=== PATIENT | female | born 1930 | race Caucasian/White ===

== ENCOUNTER 2016-05-14 16:32 | Inpatient (IN) | payer MEDICARE ==
[~2016-05-14] VITALS: Ht 162.6 cm; Wt 69.3 kg
[~2016-05-14 16:32] MED LIST: AMLO10 PO; ATOR40TA49 PO; BISA10R PR; CALC500 PO; CHOL1TAB6 PO; CLON.2 PO; COLA100C PO; COUM2.5T PO; COUM5TAB PO; CYAN1000P IM; IRON325T2 PO; LACT20SO4 PO; LIDO2GEL12 TOP; MAGN30S PO; MAPA325T6 PO; METO50CR PO; PREG75 PO; PROT40TA PO
[2016-05-14 16:43] VITALS: BP 112/59; PULSE 63; RESP 14; TEMP 98.6; O2SAT 96
[2016-05-14 17:24] LABS: AUTOMATED NEUTROPHIL # 3.6 TH/MM3 (1.8-7.7); BASOPHIL % 0.9 % (0.0-2.0); EOSINOPHIL % 0.9 % (0.0-4.0); HEMATOCRIT 27.9 % (35.0-46.0); HEMO FLAGS DIFF FINAL; LYMPH % 20.6 % (9.0-44.0); MEAN CELL VOLUME 84.4 FL (80.0-100.0); MEAN CORPUSCULAR HGB CONC 35.6 % (32.0-36.0); MONO % 6.2 % (0.0-8.0); NEUT % 71.4 % (16.0-70.0); PLATELET COUNT 217 TH/MM3 (150-450); RED BLOOD COUNT 3.31 MIL/MM3 (4.00-5.30); RED CELL DISTRIBUTION WIDTH 17.8 % (11.6-17.2); WHITE BLOOD COUNT 5.1 TH/MM3 (4.0-11.0)
[2016-05-14 17:34] LABS: PROTHROMBIN TIME - PATIENT 11.4 SEC (9.8-11.6)
[2016-05-14 17:55] LABS: CALCIUM-PROTEIN CORRECTED 7.8 MG/DL (8.5-10.1); TOTAL BILIRUBIN ADULT 1.1 MG/DL (0.2-1.0)
--- NOTE | 2016-05-14 18:04 | RADRPT ---
EXAM DATE/TIME: 05/14/2016 17:10 [facility] COMPARISON: CHEST SINGLE AP, January 24, 2016, 16:10. INDICATIONS : Cough for 2 days MEDICAL HISTORY : Carcinoma, breast. SURGICAL HISTORY : Mastectomy, right. ENCOUNTER: Initial ACUITY: 2 days PAIN SCORE: 0/10 LOCATION: Bilateral chest FINDINGS: The lungs are clear without infiltrate, nodule, or mass. There is no appreciable pleural effusion fo r technique. Heart and mediastinum are unremarkable. Bilateral proximal humeral fractures are again seen. There are atherosclerotic calcifications of the aorta due to chronic atherosclerotic disease. CONCLUSION: No acute cardiopulmonary disease. Rom Engle MD on May 14, 2016 at 18:01 Board Certified Radiologist. This report was verified electronically.
[2016-05-14 18:17] LABS: POTASSIUM 1.7 MEQ/L (3.5-5.1)
[2016-05-14 18:30] VITALS: BP 150/60; PULSE 61; RESP 17; O2SAT 94
[2016-05-14 18:35] LABS: BLOOD, URINE NEG (NEG); GLUCOSE,URINE NEG (NEG); GRANULAR CAST, URINE 5 /lpf; HYALINE CAST, URINE 12 /lpf (RARE); KETONE, URINE TRACE mg/dL (NEG); MUCUS URINE FEW /lpf (OCC); NITRITE,URINE NEG (NEG); SQUAMOUS EPITHELIAL CELL URINE <1 /hpf (0-5); TRANSITIONAL EPI CELLS, URINE <1 /hpf; URINE COLOR DARK-YELLOW (YELLW/STRAW); WHITE BLOOD CELL CAST, URINE 16 /lpf
--- NOTE | 2016-05-14 18:36 | RADRPT ---
EXAM DATE/TIME: 05/14/2016 18:13 [facility] COMPARISON: No previous studies available for comparison. INDICATIONS : Left foot bruising for 2 days with no known trauma MEDICAL HISTORY : None. SURGICAL HISTORY : None. ENCOUNTER: Initial ACUITY: 2 days PAIN SCORE: 0/10 LOCATION: Left entire foot FINDINGS: No definite fractures, or dislocations are identified. No definite lytic or sclerotic lesion is seen . Slight osteopenia is seen. Calcaneal spurs are present at the attachment site of the plantar apone urosis and Achilles tendon. There are degenerative changes within multiple joints mainly the interpha langeal joints and the first metatarsophalangeal joint. CONCLUSION: Chronic changes and no evidence for acute fracture. Rom Engle MD on May 14, 2016 at 18:33 Board Certified Radiologist. This report was verified electronically.
[2016-05-14 18:38] LABS: COMMENT (UR) CATH-CULTURE IND; CULTURE IF INDICATED CATH CULTURE IND
[2016-05-14] MEDS ORDERED: LYRI50CA PO (18:39)
[2016-05-14] MEDS ORDERED: CLON0.2T PO (18:39)
[2016-05-14] MEDS ORDERED: ATOR40TA16 PO (18:39)
[2016-05-14] MEDS ORDERED: ASPI325T PO (18:39)
[2016-05-14] MEDS ORDERED: MAGN100T2 PO (18:39)
[2016-05-14] MEDS ORDERED: PROT40TA PO (18:39)
[2016-05-14] MEDS ORDERED: VITA10003 PO (18:39)
[2016-05-14] MEDS ORDERED: CALC500C6 CHEW (18:39)
[2016-05-14] MEDS ORDERED: DOCU100C PO (18:39)
[2016-05-14] MEDS ORDERED: ACET1CAP18 PO (18:39)
[2016-05-14] MEDS ORDERED: AMLO10TA2 PO (18:39)
[2016-05-14] MEDS ORDERED: MILKSUS PO (18:39)
[2016-05-14] MEDS ORDERED: METO50TA PO (18:39)
[2016-05-14] MEDS ORDERED: TRAM50TA PO (18:39)
[2016-05-14] MEDS ORDERED: BISA10SU3 RECTAL (18:39)
[2016-05-14] MEDS ORDERED: POTASSIUM CL 40 MEQ/30 ML LIQ UDC PO ONE (18:45)
[2016-05-14] MEDS ORDERED: cefTRIAXone INJ 1,000 MG in SODIUM CHLORIDE 0.9% INJ 100 ML IV ONE (19:00)
--- NOTE | 2016-05-14 19:13 | PD ---
HPI Chief Complaint: Respiratory Symptoms Time Seen by Provider: 16:51 Travel History International Travel<30 days: No Contact w/Intl Traveler<30days: No Traveled to known affect area: No History of Present Illness HPI This is an 85-year-old female who presents to the emergency department having been removed from her assisted 2 days ago by her daughter who was concerned that she wasn't getting good care. When she arrived at home her daughter thought she had a fever. She thought she felt warm and she was sweating. She did not check her temperature. It occurred and a half to coordinate transfer but she brought her to the emergency department. She also has noticed that the patient has had a lot of purple discoloration of her left foot ever since she had a toenail removed by the dental secretary in the assisted. Seems painful. She is also concerned about some skin breakdown in her buttock area. PFSH Past Medical History Hx Anticoagulant Therapy: Yes (ASA) Arthritis: Yes Asthma: No Autoimmune Disease: No Anxiety: No Depression: No Heart Rhythm Problems: No Cancer: Yes (Colon, Right breast) Cardiovascular Problems: No High Cholesterol: Yes Chemotherapy: No Chest Pain: No Congestive Heart Failure: No COPD: No Cerebrovascular Accident: Yes Diabetes: No Diminished Hearing: No Endocrine: No Gastrointestinal Disorders: Yes (Colon cancer) GERD: Yes Genitourinary: No Hepatitis: No Hiatal Hernia: Yes Hypertension: Yes Immune Disorder: No Kidney Stones: No Medical other: Yes (GERD) Musculoskeletal: Yes Neurologic: Yes (Stroke 7.21.16, NEUROPATHY) Psychiatric: No Reproductive: No Respiratory: No Migraines: No Radiation Therapy: No Renal Failure: No Seizures: No Sickle Cell Disease: No Sleep Apnea: No Thyroid Disease: No Ulcer: No Tetanus Vaccination: < 5 Years Influenza Vaccination: No ?: Not Menopausal: Yes : 6 Para: 5 Miscarriage: 1 Past Surgical History Abdominal Surgery: Yes (BOWEL RESECTION) AICD: No Appendectomy: Yes Arteriovenous Shunt: No Body Medical Devices: Left wrist Cardiac Surgery: No Section: No Cholecystectomy: Yes Ear Surgery: No Endocrine Surgery: No Eye Surgery: Yes (BILATERAL CATARACT REMOVAL ) Genitourinary Surgery: No Gynecologic Surgery: No Insulin Pump: No Joint Replacement: No Oral Surgery: No Pacemaker: No Thoracic Surgery: Yes (RIGHT MASTECTOMY ) Other Surgery: Yes (Gallbladder, Right Masectomy, Left wrist) Social History Alcohol Use: No Tobacco Use: No Substance Use: No Allergies-Medications (Allergen,Severity, Reaction): Coded Allergies: Heparin (Verified Adverse Reaction, Severe, 05/14/16) CAUSED THROMBOSIS Reported Meds & Prescriptions Reported Meds & Active Scripts Active Reported Tramadol (Tramadol HCl) 50 Mg Tab 50 Mg PO Q6H PRN Protonix (Pantoprazole Sodium) 40 Mg Tab 40 Mg PO DAILY Lyrica (Pregabalin) 50 Mg Cap 50 Mg PO BID PRN Milk of Magnesia Liq (Magnesium Hydroxide) 400 Mg/5 Ml Susp 30 Ml PO DAILY PRN Metoprolol Tartrate 50 Mg Tab 50 Mg PO DAILY Magnesium Citrate 100 Mg Tab 100 Mg PO DAILY PRN Docusate Sodium 100 Mg Cap 100 Mg PO BID Clonidine (Clonidine HCl) 0.2 Mg Tab 0.2 Mg PO Q6HR PRN Vitamin D-3 (Cholecalciferol) 1,000 Unit Tab 1,000 Units PO DAILY Calcium Carbonate 500 Mg Chew 500 Mg CHEW BID 500 mg calcium carbonate (200 mg elemental calcium) Bisacodyl Supp (Bisacodyl) 10 Mg Supp 10 Mg RECTAL DAILY PRN Atorvastatin (Atorvastatin Calcium) 40 Mg Tab 40 Mg PO HS Aspirin 325 Mg Tab 325 Mg PO DAILY Amlodipine (Amlodipine Besylate) 10 Mg Tab 10 Mg PO DAILY Tylenol (Acetaminophen) 325 Mg Cap 325 Mg PO Q8HR PRN Review of Systems ROS Limitations: Poor Historian Physical Exam Narrative GENERAL: Frail elderly female in no acute distress SKIN: Purpura over the left foot adjacent to the left great toe and on the lateral aspect of the left foot with no warmth HEAD: Atraumatic. Normocephalic. EYES: Pupils equal and round. No injection or drainage. ENT: Dry mucous membranes NECK: Trachea midline. CARDIOVASCULAR: Regular rate and rhythm. No murmur appreciated. RESPIRATORY: Clear to auscultation. Breath sounds equal bilaterally. GASTROINTESTINAL: Abdomen soft, non-tender, nondistended. MUSCULOSKELETAL: No obvious deformities. NEUROLOGICAL: Confused, oriented to person and place. No obvious cranial nerve deficits. Left-sided hemiparesis PSYCHIATRIC: Poor insight and judgment Data Data Last Documented VS Vital Signs Date Time Temp Pulse Resp B/P Pulse Ox O2 Delivery O2 Flow Rate FiO2 05/14/16 19:10 86 Nasal Cannula 3 05/14/16 18:30 61 17 150/60 05/14/16 16:43 98.6 Orders Complete Blood Count With Diff (05/14/16 16:51) Comprehensive Metabolic Panel (05/14/16 16:51) Lactic Acid Sepsis Protocol (05/14/16 16:51) Urinalysis - C+S If Indicated (05/14/16 16:51) Influenzae A/B Antigen (05/14/16 16:51) Blood Culture (05/14/16 16:51) Chest, Single Ap (05/14/16 16:51) Blood Glucose (05/14/16 16:51) Ecg Monitoring (05/14/16 16:51) Iv Access Insert/Monitor (05/14/16 16:51) Oximetry (05/14/16 16:51) Oxygen Administration (05/14/16 16:51) Prothrombin Time / Inr (Pt) (05/14/16 16:53) Act Partial Throm Time (Ptt) (05/14/16 16:53) Foot, Complete ([id number]) (05/14/16 ) Electrocardiogram (05/14/16 ) Urine Culture (05/14/16 17:55) Potassium Chlor 20 Meq Premix (Kcl 20 Me (05/14/16 18:45) Potassium Cl 40 Meq/30 Ml Liq (Kcl 40 Me (05/14/16 18:45) Potassium, Serum (K) (05/14/16 18:45) Ceftriaxone Inj (Rocephin Inj) (05/14/16 19:00) Cath For Specimen (05/14/16 19:13) Labs Laboratory Tests Test 05/14/16 05/14/16 05/14/16 17:03 17:10 17:55 White Blood Count 5.1 TH/MM3 Red Blood Count 3.31 MIL/MM3 Hemoglobin 9.9 GM/DL Hematocrit 27.9 % Mean Corpuscular Volume 84.4 FL Mean Corpuscular Hemoglobin 30.0 PG Mean Corpuscular Hemoglobin 35.6 % Concent Red Cell Distribution Width 17.8 % Platelet Count 217 TH/MM3 Mean Platelet Volume 8.5 FL Neutrophils (%) (Auto) 71.4 % Lymphocytes (%) (Auto) 20.6 % Monocytes (%) (Auto) 6.2 % Eosinophils (%) (Auto) 0.9 % Basophils (%) (Auto) 0.9 % Neutrophils # (Auto) 3.6 TH/MM3 Lymphocytes # (Auto) 1.0 TH/MM3 Monocytes # (Auto) 0.3 TH/MM3 Eosinophils # (Auto) 0.0 TH/MM3 Basophils # (Auto) 0.0 TH/MM3 CBC Comment DIFF FINAL Differential Comment Prothrombin Time 11.4 SEC Prothromb Time International 1.0 RATIO Ratio Activated Partial 32.0 SEC Thromboplast Time Sodium Level 140 MEQ/L Potassium Level 1.7 MEQ/L Chloride Level 92 MEQ/L Carbon Dioxide Level 40.0 MEQ/L Anion Gap 8 MEQ/L Blood Urea Nitrogen 9 MG/DL Creatinine 0.60 MG/DL Estimat Glomerular Filtration 95 ML/MIN Rate Random Glucose 89 MG/DL Calcium Level 7.4 MG/DL Protein Corrected Calcium 7.8 MG/DL Total Bilirubin 1.1 MG/DL Aspartate Amino Transf 32 U/L (AST/SGOT) Alanine Aminotransferase 18 U/L (ALT/SGPT) Alkaline Phosphatase 109 U/L Total Protein 6.3 GM/DL Albumin 1.7 GM/DL Lactic Acid Level 0.9 mmol/L Urine Color DARK-YELLOW Urine Turbidity HAZY Urine pH 6.0 Urine Specific [place] 1.017 Urine Protein 30 mg/dL Urine Glucose (UA) NEG mg/dL Urine Ketones TRACE mg/dL Urine Occult Blood NEG Urine Nitrite NEG Urine Bilirubin SMALL Urine Urobilinogen 4.0 MG/DL Urine Leukocyte Esterase NEG Urine RBC 1 /hpf Urine WBC 18 /hpf Urine Squamous Epithelial <1 /hpf Cells Urine Transitional Epithelial <1 /hpf Cells Urine Amorphous Sediment RARE Urine Hyaline Casts 12 /lpf Urine Granular Casts 5 /lpf Urine White Blood Cell Casts 16 /lpf Urine Mucus FEW /lpf Microscopic Urinalysis Comment CATH-CULTURE IND MDM Medical Decision Making Medical Screen Exam Complete: Yes Emergency Medical Condition: Yes Interpretation(s) EKG: First-degree heart block, Q waves in the inferior leads Leukocytosis Anemia Potassium 1.7 Lactic acid 0.9 Bicarbonate is 40 Urinalysis: White blood cells 18 Differential Diagnosis Dehydration, arrhythmia, urinary tract infection, pneumonia Narrative Course This is an 85-year-old female who presents brought in by her daughter for concern for infection. The patient was placed on a monitor and an IV was established. Electrolytes were obtained which were notable for a potassium of 1.7. Bicarbonate is 40. On further questioning daughter does acknowledge that the patient has had some diarrhea recently. Patient does have a slightly prolonged QT interval. Urinalysis demonstrates 18 white blood cells. She was given a gram of ceftriaxone. She was given IV potassium and oral potassium supplementation. Patient will be admitted for electrolyte repletion. I think the patient can seek podiatry as an inpatient regarding the wounds and discoloration on her foot. Diagnosis Primary Impression: Hypokalemia Admitting Information Admitting Physician Requests: Admit Danna Brian MD May 14, 2016 19:13
--- NOTE | 2016-05-14 19:17 | HHI.HP ---
[facility] Service Family Medicine Primary Care Physician Lucinda Randhawa MD Admission Diagnosis Diagnoses: International Travel<30 Days: No Contact w/Intl Traveler<30days: No Known Affected Area: No History of Present Illness This is a 85 year olf female here with her daughter. The daughter provides much of the history. The daughter has not been pleased with the care her mother has received at her nursing facility. She complains that her mom would sit for hours at a time in wet diapers and that they stopped physical therapy because her Medicare would not cover it anymore. Additionally, 3 weeks ago she complains that a nurse accidentally partially removed the left great toenail when lifting the patient out of bed. A marine engineering consultant was consulted secondary to the toe "turning black." And he proceeded to remove the toenail. Reportedly, her marine engineering consultant at that facility wanted an x-ray and culture of the foot. Last night, her daughter reports the patient had a fever (subjectively) because she felt hot and was sweating. Additionally yesterday her cough started. Nonproductive. She occasionally gets into coughing fits. It is this cough and subjective fever which brought the patient to the emergency room. She is also concerned that the skin on her bottom is breaking down. Review of Systems Constitutional: COMPLAINS OF: Fever (subjective), DENIES: Chills Eyes: DENIES: Blurred vision, Diplopia Ears, nose, mouth, throat: DENIES: Tinnitus, Hearing loss Respiratory: COMPLAINS OF: Cough, Shortness of breath, DENIES: Sputum production Cardiovascular: DENIES: Chest pain, Syncope, Dyspnea on Exertion Gastrointestinal: COMPLAINS OF: Diarrhea, DENIES: Abdominal pain, Black stools , Bloody stools, Constipation Integumentary: COMPLAINS OF: Rash, DENIES: Pruritus Neurologic: DENIES: Headache Psychiatric: DENIES: Anxiety, Confusion Past Family Social History Past Medical History Hypertension History of breast cancer, status post chemotherapy and right mastectomy Distant history of colon cancer requiring partial large bowel resection Hyperlipidemia GERD History of pancreatitis secondary to gallstone Osteoarthritis Osteoporosis 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 Hinds Chief Meter Reader: can't remember the name. Past Surgical History Cholecystectomy Appendectomy Colon resection due to colon cancer Bilateral cataract surgery Right mastectomy for breast cancer Recent surgery for wrist fracture Reported Medications Reported Meds & Active Scripts Active Reported Tramadol (Tramadol HCl) 50 Mg Tab 50 Mg PO Q6H PRN Protonix (Pantoprazole Sodium) 40 Mg Tab 40 Mg PO DAILY Lyrica (Pregabalin) 50 Mg Cap 50 Mg PO BID PRN Milk of Magnesia Liq (Magnesium Hydroxide) 400 Mg/5 Ml Susp 30 Ml PO DAILY PRN Metoprolol Tartrate 50 Mg Tab 50 Mg PO DAILY Magnesium Citrate 100 Mg Tab 100 Mg PO DAILY PRN Docusate Sodium 100 Mg Cap 100 Mg PO BID Clonidine (Clonidine HCl) 0.2 Mg Tab 0.2 Mg PO Q6HR PRN Vitamin D-3 (Cholecalciferol) 1,000 Unit Tab 1,000 Units PO DAILY Calcium Carbonate 500 Mg Chew 500 Mg CHEW BID 500 mg calcium carbonate (200 mg elemental calcium) Bisacodyl Supp (Bisacodyl) 10 Mg Supp 10 Mg RECTAL DAILY PRN Atorvastatin (Atorvastatin Calcium) 40 Mg Tab 40 Mg PO HS Aspirin 325 Mg Tab 325 Mg PO DAILY Amlodipine (Amlodipine Besylate) 10 Mg Tab 10 Mg PO DAILY Tylenol (Acetaminophen) 325 Mg Cap 325 Mg PO Q8HR PRN Allergies: Coded Allergies: Heparin (Verified Adverse Reaction, Severe, 05/14/16) CAUSED THROMBOSIS Active Ordered Medications Active Medications Ceftriaxone Sodium/Sodium Chloride (Rocephin Inj/NS Inj) 100 ml @ 200 mls/hr ONCE ONCE IV Last administered on 05/14/16at 19:05; Admin Dose 200 MLS/HR; Start 05/14/16 at 19:00; Stop 05/14/16 at 19:29 Potassium Chloride 40 meq 40 meq ONCE ONCE PO; Start 05/14/16 at 18:45; Stop 05/14/16 at 18:46; Status DC Potassium Chloride (KCl 20 Meq Premix Inj) 100 ml @ 50 mls/hr Q2H IV; Start at 18:45; Stop 05/14/16 at 22:44 Family History Review of the EMR Social History 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 Lives with her and her daughter. Denies alcohol or smoking. Physical Exam Vital Signs Vital Signs Date Time Temp Pulse Resp B/P Pulse Ox O2 Delivery O2 Flow Rate FiO2 05/14/16 16:51 71 14 96 Room Air 05/14/16 16:43 98.6 63 14 112/59 96 Physical Exam GENERAL: This is a pleasant elderly female, in NAD. SKIN: Cool and dry. Left foot with ecchymotic 4X4 cm lesion on the outside of the foot and left great toe with procedural changes status post resection of nail one week ago. STAGE 1 decubitus ulcer on the sacrum. No skin breakdown. HEAD: Atraumatic. Normocephalic. No temporal or scalp tenderness. EYES: Pupils equal round and reactive. Extraocular motions intact. No scleral icterus. No injection or drainage. ENT: Nose without bleeding, purulent drainage or septal hematoma. Throat without erythema, tonsillar hypertrophy or exudate. Uvula midline. Airway patent. NECK: Trachea midline. No JVD or lymphadenopathy. Supple, nontender, no meningeal signs. CARDIOVASCULAR: Regular rate and rhythm without murmurs, gallops, or rubs. RESPIRATORY: Clear to auscultation bilaterally. GASTROINTESTINAL: Abdomen soft, non-tender, nondistended. No hepato-splenomegaly , or palpable masses. No guarding. MUSCULOSKELETAL: Extremities without clubbing, cyanosis, or edema. No joint tenderness, effusion, or edema noted. No calf tenderness. Negative Homans sign bilaterally. NEUROLOGICAL: Awake and alert. Cranial nerves II through XII intact. Motor and sensory grossly within normal limits. Five out of 5 muscle strength in all muscle groups. Normal speech. Laboratory Laboratory Tests Test 05/14/16 05/14/16 05/14/16 17:03 17:10 17:55 White Blood Count 5.1 Red Blood Count 3.31 Hemoglobin 9.9 Hematocrit 27.9 Mean Corpuscular Volume 84.4 Mean Corpuscular Hemoglobin 30.0 Mean Corpuscular Hemoglobin 35.6 Concent Red Cell Distribution Width 17.8 Platelet Count 217 Mean Platelet Volume 8.5 Neutrophils (%) (Auto) 71.4 Lymphocytes (%) (Auto) 20.6 Monocytes (%) (Auto) 6.2 Eosinophils (%) (Auto) 0.9 Basophils (%) (Auto) 0.9 Neutrophils # (Auto) 3.6 Lymphocytes # (Auto) 1.0 Monocytes # (Auto) 0.3 Eosinophils # (Auto) 0.0 Basophils # (Auto) 0.0 CBC Comment DIFF FINAL Differential Comment Prothrombin Time 11.4 Prothromb Time International 1.0 Ratio Activated Partial 32.0 Thromboplast Time Sodium Level 140 Potassium Level 1.7 Chloride Level 92 Carbon Dioxide Level 40.0 Anion Gap 8 Blood Urea Nitrogen 9 Creatinine 0.60 Estimat Glomerular Filtration 95 Rate Random Glucose 89 Calcium Level 7.4 Protein Corrected Calcium 7.8 Total Bilirubin 1.1 Aspartate Amino Transf 32 (AST/SGOT) Alanine Aminotransferase 18 (ALT/SGPT) Alkaline Phosphatase 109 Total Protein 6.3 Albumin 1.7 Lactic Acid Level 0.9 Urine Color DARK-YELLOW Urine Turbidity HAZY Urine pH 6.0 Urine Specific [place] 1.017 Urine Protein 30 Urine Glucose (UA) NEG Urine Ketones TRACE Urine Occult Blood NEG Urine Nitrite NEG Urine Bilirubin SMALL Urine Urobilinogen 4.0 Urine Leukocyte Esterase NEG Urine RBC 1 Urine WBC 18 Urine Squamous Epithelial <1 Cells Urine Transitional Epithelial <1 Cells Urine Amorphous Sediment RARE Urine Hyaline Casts 12 Urine Granular Casts 5 Urine White Blood Cell Casts 16 Urine Mucus FEW Microscopic Urinalysis Comment CATH-CULTURE IND Date/Time Procedure Status Source Growth 05/14/16 17:55 Urine Culture Received Urine Catheterized Urine Pending 05/14/16 17:50 Influenza Types A,B Antigen (SEJAL) - Final Complete Nasal Washing NEGATIVE FOR FLU A AND B ANTIGEN.... 05/14/16 17:10 Aerobic Blood Culture Received Blood Peripheral Pending 05/14/16 17:10 Anaerobic Blood Culture Received Blood Peripheral Pending Result Diagram: 05/14/16 1703 05/14/16 1703 Imaging Last Impressions Chest X-Ray 05/14/16 1651 Signed Impressions: Service Date/Time: Saturday, May 14, 2016 17:10 - CONCLUSION: No acute cardiopulmonary disease. Rom Engle MD Foot X-Ray 05/14/16 0000 Signed Impressions: Service Date/Time: Saturday, May 14, 2016 18:13 - CONCLUSION: Chronic changes and no evidence for acute fracture. Rom Engle MD Assessment and Plan Assessment and Plan 85-year-old female from care home presents with severe hypokalemia, urinary tract infection, stage I decubitus ulcer. Code Status Full Discussed Condition With Dr. Andrea Problem List: (1) Hypokalemia Status: Acute Plan: Patient presents with severe hypokalemia 1.7; likely from history of chronic diarrhea. She has received 2 bags of potassium chloride and 40 mEq by mouth one in the ER. In the ER, EKG: First-degree heart block, Q waves in the inferior leads -Place on telemetry -Continue to replace potassium -Recheck every 6 hours. (2) UTI (urinary tract infection) Status: Acute Plan: Patient received 1 g of Rocephin in the emergency room. -Continue Rocephin 1 g every 24 hours -Follow urine culture -Follow blood culture (3) Diarrhea Status: Acute Plan: Holding patient's stool softeners. Stool culture pending C. difficile PCR pending (4) Stage 1 decubitus ulcer Status: Acute Plan: Nursing to assess q shift Pressure redistribution prn Physical therapy to evaluate and treat. (5) Toe deformity Status: Acute Plan: Patient is status post left great toenail removal 3 weeks ago. That foot has ecchymotic changes outer aspect of the foot. Additionally the toe has postop changes that could be addressed. -Podiatry consult (6) FEN/PPX Status: Acute Plan: Fluids: Normal saline at 100 mils per hour Electrolytes: Low potassium. Monitor and replace when necessary Nutrition: Regular diet Prophylaxis: Bilateral SCDs. Patient has a very serious heparin allergy. Caution with heparin or Lovenox. Other chronic medical problems. Hypertension-continue amlodipine Hyperlipidemia-continue atorvastatin GERD-continue Protonix Chronic pain-continue Lyrica, tramadol and Tylenol Physician Certification 2 Midnight Certification Type: Admission for Inpatient Services Order for Inpatient Services The services are ordered in accordance with Medicare regulations or non- Medicare payer requirements, as applicable. In the case of services not specified as inpatient-only, they are appropriately provided as inpatient services in accordance with the 2-midnight benchmark. Estimated LOS (days): 2 days is the estimated time the patient will need to remain in the hospital, assuming treatment plan goals are met and no additional complications. Post-Hospital Plan: Not yet determined Problem Qualifiers (1) Diarrhea: Qualified Code: R19.7 - Diarrhea, unspecified type (2) Stage 1 decubitus ulcer: Qualified Code: L89.151 - Decubitus ulcer of sacral region, stage 1 (3) Toe deformity: Qualified Code: M20.62 - Toe deformity, left Cordell Zuniga MD R2 May 14, 2016 19:17
[2016-05-14] MEDS: POTASSIUM CHLOR 20 MEQ PREMIX 100 ML IV SCH ×2 (19:24→21:40)
[2016-05-14 19:43] LABS: BLOOD GAS VENOUS BASE EXCESS 16.7 mmol/L (-2-2); BLOOD GAS VENOUS HCO3 41 mmol/L (22-26); BLOOD GAS VENOUS O2 CONTENT 8.6 Vol % (9.0-17.0); BLOOD GAS VENOUS O2 HGB SAT 65 % (70-76); BLOOD GAS VENOUS PCO2 52 mmHg (44-48); BLOOD GAS VENOUS PO2 36 mmHg (35-40); BLOOD GAS VENOUS pH 7.51 (7.360-7.400); TEMP CORR TO 98.6
[2016-05-14 19:48] LABS: CRITICAL VALUE YES; OXYGEN DEVICE NASAL CANNULA
[2016-05-14 19:49] LABS: DRAW SITE IV; LITER FLOW 2 L/M; STAT YES
[2016-05-14 20:00] VITALS: BP 144/65; PULSE 61; RESP 21; O2SAT 98
[2016-05-14] MEDS ORDERED: ONDANSETRON HCL 4 MG/2 ML VIAL IV PRN (20:00)
[2016-05-14] MEDS ORDERED: DOCUSATE SODIUM 50 MG/SENNA 8.6 MG TAB PO PRN (20:00)
[2016-05-14] MEDS ORDERED: MORPHINE SULFATE 4 MG/ML INJ IV PUSH PRN (20:00)
[2016-05-14] MEDS ORDERED: ACETAMINOPHEN 325 MG TAB PO PRN ×2 (20:00→23:15)
[2016-05-14] MEDS ORDERED: hydrALAZINE HCL 10 MG TAB PO PRN (20:00)
[2016-05-14] MEDS: SODIUM CHLOR 0.9% 1000 ML INJ 1,000 ML IV SCH (20:14)
[2016-05-14] MEDS ORDERED: traMADol HCL 50 MG TAB PO PRN (23:15)
[2016-05-14] MEDS ORDERED: MAGNESIUM CITRATE 100 MG PO PRN (23:15)
[2016-05-15] VITALS (10 sets, daily range): BP systolic 95–169; BP diastolic 55–74; PULSE 62–74; RESP 16–18; TEMP 96.9–97.9; O2SAT 95–100
[2016-05-15] MEDS: POTASSIUM CHLOR 20 MEQ PREMIX 100 ML IV SCH ×4 (00:18→15:28)
[2016-05-15] MEDS: SODIUM CHLOR 0.9% 1000 ML INJ 1,000 ML IV SCH ×3 (06:23→23:57)
--- NOTE | 2016-05-15 07:53 | EKG ---
Date Performed: 05/14/2016 Time Performed: 18:45:25 PTAGE: 85 years EKG: Sinus rhythm WITH FIRST DEGREE AV BLOCK POSSIBLE INFERIOR MYOCARDIAL INFARCTION NONSPECIFIC T WAVE ABNORMALITIES ABNORMAL ECG PREVIOUS TRACING : 01/24/2016 16.29 No significant change from previous tracing noted. DOCTOR: Aristeo Gage Interpretating Date/Time 05/15/2016 07:51:05
[2016-05-15 08:49] LABS: AUTOMATED NEUTROPHIL # 2.5 TH/MM3 (1.8-7.7); BASOPHIL % 0.9 % (0.0-2.0); EOSINOPHIL # 0.1 TH/MM3 (0-0.4); EOSINOPHIL % 3.1 % (0.0-4.0); HEMATOCRIT 25.7 % (35.0-46.0); HEMO FLAGS DIFF FINAL; MEAN CELL VOLUME 85.7 FL (80.0-100.0); MEAN CORPUSCULAR HEMOGLOBIN 29.9 PG (27.0-34.0); MEAN CORPUSCULAR HGB CONC 34.9 % (32.0-36.0); MONO % 6.1 % (0.0-8.0); NEUT % 64.9 % (16.0-70.0); PLATELET COUNT 187 TH/MM3 (150-450); RED CELL DISTRIBUTION WIDTH 18.1 % (11.6-17.2); WHITE BLOOD COUNT 3.9 TH/MM3 (4.0-11.0)
[2016-05-15 09:02] LABS: BICARBONATE 33.5 MEQ/L (21.0-32.0); MAGNESIUM 1.3 MG/DL (1.5-2.5)
[2016-05-15 09:34] LABS: CALCIUM-PROTEIN CORRECTED 7.9 MG/DL (8.5-10.1)
[2016-05-15 09:36] LABS: POTASSIUM 2.7 MEQ/L (3.5-5.1)
[2016-05-15] MEDS ORDERED: POTASSIUM CHLORIDE 25 MEQ EFFERVESCENT TAB PO ONE (09:45)
[2016-05-15] MEDS: ASPIRIN 325 MG TAB PO SCH (09:47)
[2016-05-15] MEDS: METOPROLOL TARTRATE 50 MG TAB PO SCH (09:47)
[2016-05-15] MEDS: PANTOPRAZOLE SOD 40 MG DELAYED RELEASE TAB PO SCH (09:47)
[2016-05-15] MEDS ORDERED: POTASSIUM CHLORIDE INJ 20 MEQ, MAGNESIUM SULFATE INJ 2 GM in SODIUM CHLOR 0.9% 1000 ML ... IV ONE (10:00)
--- NOTE | 2016-05-15 10:59 | MB ---
cc: GARRETT OBRIEN DPM DATE OF CONSULTATION 05/15/2016 REASON FOR CONSULTATION Left hallux history of ingrown toenail with possible ischemic lesions of foot. HISTORY OF PRESENT ILLNESS This is an 85-year-old female who apparently had a history of a great toenail avulsion after a post-traumatic ingrown toenail that the patient received while full being transferred at the facility. There was a resin shaver at the facility who we do not know the name of, who avulsed the nail. However, within the last 1-2 days there was noted to be increasing redness and blistering of the foot and the patient was feeling ill. The patient's daughter was very concerned. The patient was then brought to the hospital. Currently I am seeing the patient bedside with the daughter. The patient is verbal, appropriate. There is obvious hemiparesis on the left side. PAST MEDICAL HISTORY: Positive for - 1. Hypertension. 2. Breast cancer. 3. Colon cancer. 4. Hyperlipidemia. 5. GERD. 6. Pancreatitis. 7. Osteoarthritis. 8. Osteoporosis. 9. 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 The patient's oncologist is Dr. Hinds. PAST SURGICAL HISTORY 1. Cholecystectomy. 2. Appendectomy. 3. Colon resection due to colon cancer. 4. Bilateral cataract surgery. 5. Right mastectomy for breast cancer. 6. Surgery of the wrist. OUTPATIENT MEDICATIONS Reviewed and verified. Apparently the patient was applying topical medication at the facility to the left hallux. CODED ALLERGIES HEPARIN. ACTIVE INPATIENT MEDICATIONS Also reviewed. The patient is receiving ceftriaxone. PHYSICAL EXAMINATION Vital Signs: Temperature 97.9, pulse rate 74, respiratory rate is 17. The patient is sating 95% on room air. Blood pressure is 153/70. General: This is an alert and oriented female. She appears to be exhibiting nonlabored respirations. She has difficulty moving the left upper extremity and lower extremity. The patient apparently has good movement in the right upper and lower extremity. The left lower extremity is examined. There is noted to be a stable eschar at the level of the left hallux which appears to be a collapsed blister or bulla circumferential of the left hallux. At the level of the first MPJ and fifth MPJ there is a focal area of dark discoloration which appears to be a stable eschar/ischemic type lesion but there is expanding bullae blistering that extends to the dorsum of the foot and along the fifth ray. Upon pressure to the area, there is mild pain. Upon light touch the patient has limited to no feeling. The left foot is flaccid, more in equinus type position. Pulses are hard to palpate; however, they are audible via Doppler, dorsalis pedis and posterior tibialis. The right lower extremity is examined, free from any obvious lesion. LABORATORY FINDINGS White blood cell 5.1, hemoglobin and hematocrit 9 and 27, platelet count is 217. Chem-7 - Sodium 140, potassium 1.7, chloride 92, CO2 40, BUN 9, creatinine 0.6, calcium 7.4, albumin 1.7. PT 11.4, INR 1.0. IMAGING FINDINGS There appears to be osteopenia; however, no obvious fracture dislocation or bony erosive process. ASSESSMENT AND PLAN Left foot ischemic lesions first and fifth MPJ area as well as left hallux stable eschar, status post left hallux nail avulsion. ASSESSMENT AND PLAN At this time the lesions appear to be stable. There is no indication for debridement. There is no drainage. There is no culture that can be taken. My recommendation is observation, offloading. We will start a foam padding of the first and fifth MPJ in combination with gentamicin cream. I do feel that the patient's circulation is good enough at this point that she will eventually heal these wounds if pressure stays off. We will avoid wrapping the foot circumferentially for this to continue to cause a stricture bandage type lesion. I reviewed in great detail with the daughter the need for offloading. Multi-Podus boots have been ordered. I do anticipate, if the patient continues to improve, she can possibly be discharged within the next 1-2 days and followup as an outpatient. MARYURI Martin/TITO /10:20 AM /10:44 AM
--- NOTE | 2016-05-15 13:01 | HHI.FPPN ---
Subjective Remarks Patient seen and examined and discussed with the medicine team. History and physical examination for this admission was reviewed. This is an 85-year-old female who was in a retirement facility until May 12 at which time she was picked up by her daughter. At that time she was in good spirits and cheerful, but on May 13 she slept most of the day and didn't eat much at all so she and her daughter felt she should be seen. She does have history of CVA status post H ITT with left-sided deficits. At home, she had subjective fever and a nonproductive cough and daughter was also concerned about reddened area over the sacrum. History of hypertension, GERD and dyslipidemia. Also with an injury to her left great toe resulting in the nail being removed and with some persistent ecchymosis of the great toe and both medial and lateral sides of the distal foot. She was found to have significantly decreased potassium at 1.7 in the emergency department. Minimal appetite this morning, mostly oriented and does not appear to be in any acute distress today. Objective Vitals Vital Signs Date Time Temp Pulse Resp B/P Pulse Ox O2 Delivery O2 Flow Rate FiO2 05/15/16 08:28 71 05/15/16 08:05 97.9 74 17 95 05/15/16 04:00 97.3 69 16 153/70 97 05/15/16 02:14 72 05/15/16 01:10 97.6 71 17 169/74 97 05/15/16 00:30 68 17 95/55 99 Nasal Cannula 2 05/14/16 20:00 61 21 144/65 98 Nasal Cannula 2 05/14/16 19:10 86 Nasal Cannula 3 05/14/16 18:30 61 17 150/60 94 Room Air 05/14/16 16:51 71 14 96 Room Air 05/14/16 16:43 98.6 63 14 112/59 96 I/O 05/14/16 05/14/16 05/14/16 05/15/16 05/15/16 05/15/16 07:00 15:00 23:00 07:00 15:00 23:00 Intake Total 120 ml Balance 120 ml Intake Oral 120 ml # Voids 2 # Bowel Movements 1 Result Diagram: 05/15/16 0820 05/15/16 0820 Other Results Laboratory Tests Test 12/05/14/16 05/14/16 05/14/16 17:03 17:55 18:50 19:35 Red Blood Count 3.31 MIL/MM3 Hemoglobin 9.9 GM/DL Hematocrit 27.9 % Red Cell Distribution Width 17.8 % Neutrophils (%) (Auto) 71.4 % Activated Partial 32.0 SEC Thromboplast Time Potassium Level 1.7 MEQ/L 1.8 MEQ/L Chloride Level 92 MEQ/L Carbon Dioxide Level 40.0 MEQ/L Calcium Level 7.4 MG/DL Protein Corrected Calcium 7.8 MG/DL Total Bilirubin 1.1 MG/DL Total Protein 6.3 GM/DL Albumin 1.7 GM/DL Urine Color DARK-YELLOW Urine Turbidity HAZY Urine Protein 30 mg/dL Urine Ketones TRACE mg/dL Urine Bilirubin SMALL Urine Urobilinogen 4.0 MG/DL Urine WBC 18 /hpf Urine Mucus FEW /lpf Venous Blood pH 7.51 Venous Blood Partial Pressure 52 mmHg CO2 Venous Blood HCO3 41 mmol/L Venous Blood Oxygen Saturation 65 % Venous Blood Oxygen Content 8.6 Vol % Venous Blood Base Excess 16.7 mmol/L Test 05/14/16 05/15/16 23:00 08:20 Potassium Level 3.1 MEQ/L 2.7 MEQ/L White Blood Count 3.9 TH/MM3 Red Blood Count 3.00 MIL/MM3 Hemoglobin 9.0 GM/DL Hematocrit 25.7 % Red Cell Distribution Width 18.1 % Carbon Dioxide Level 33.5 MEQ/L Blood Urea Nitrogen 3 MG/DL Creatinine 0.45 MG/DL Calcium Level 7.1 MG/DL Protein Corrected Calcium 7.9 MG/DL Magnesium Level 1.3 MG/DL Total Protein 5.6 GM/DL Imaging Last Impressions Chest X-Ray 05/14/16 1651 Signed Impressions: Service Date/Time: Saturday, May 14, 2016 17:10 - CONCLUSION: No acute cardiopulmonary disease. Rom Engle MD Foot X-Ray 05/14/16 0000 Signed Impressions: Service Date/Time: Saturday, May 14, 2016 18:13 - CONCLUSION: Chronic changes and no evidence for acute fracture. Rom Engle MD Objective Remarks O. CONSTITUTIONAL/GEN: normally nourished, in NAD. EYES: conjunctiva normal, PERRLA, EOMI. sclerae are clear. ENT: Mouth and pharynx normal. He has her own teeth, mucous membranes are moist. NECK: thyroid midline, carotids symmetrical. No thyromegaly or lymphadenopathy LUNGS: clear A-P, respiratory effort is normal. CARDIOVASCULAR: RR without murmur or gallop. No significant edema. GI/ABD: soft without masses, without organomegaly. Active bowel sounds, a little tender in the left lower quadrant to palpation. NEURO: Left sided deficits from CVA SKIN: color normal, no rashes noted except for the left foot which shows ecchymosis and evulsion of the left great toenail. HEME/LYMPH: no bruising, petechia or significant adenopathy MUSC: back is normal in appearance. There is some erythema over the coccyx which is nonblanching. PSYCH/MENTAL STATUS: Alert and oriented x 3. A/P Assessment and Plan 85-year-old female from senior living presents with severe hypokalemia, stage I pressure wound over her coccyx and changes to the distal left foot and evulsion of the left great toenail. Discharge Planning Daughter intends to take patient home with her. Attending Attestation Patient seen and examined with the medicine team. Case reviewed and discussed with the resident team. Agree with plan of care as discussed with me and documented in the orders. Problem List: (1) Hypokalemia Status: Acute Plan: Patient presents with severe hypokalemia 1.7; likely from history of chronic diarrhea. She has received 2 bags of potassium chloride and 40 mEq by mouth one in the ER. In the ER, EKG: First-degree heart block, Q waves in the inferior leads -Place on telemetry -Continue to replete potassium -Recheck every 6 hours. (2) Diarrhea Status: Acute Plan: Holding patient's stool softeners. No stools since admission Will cancel studies for C. difficile (3) Stage 1 decubitus ulcer Status: Acute Plan: Nursing to assess q shift Pressure redistribution prn Physical therapy to evaluate and treat. (4) Toe deformity Status: Chronic Plan: Patient is status post left great toenail removal 3 weeks ago. That foot has ecchymotic changes outer aspect of the foot. Additionally the toe has postop changes that could be addressed. -Podiatry consult appreciated (5) FEN/PPX Status: Acute Plan: Fluids: Normal saline at 100 mils per hour Electrolytes: Low potassium. Monitor and replete when necessary Nutrition: Regular diet Prophylaxis: Bilateral SCDs. Patient has a very serious heparin allergy. Caution with heparin or Lovenox. Other chronic medical problems. Hypertension-continue amlodipine Hyperlipidemia-continue atorvastatin GERD-continue Protonix Chronic pain-continue Lyrica, tramadol and Tylenol Problem Qualifiers (1) Diarrhea: Qualified Code: R19.7 - Diarrhea, unspecified type (2) Stage 1 decubitus ulcer: Qualified Code: L89.151 - Decubitus ulcer of sacral region, stage 1 (3) Toe deformity: Qualified Code: M20.62 - Toe deformity, left Mimi Zuniga MD May 15, 2016 13:01
[2016-05-15] MEDS: GENTAMICIN SULFATE 0.1% CREAM 15 GM TOP SCH (15:29)
[2016-05-15] MEDS ORDERED: cefTRIAXone INJ 1,000 MG in SODIUM CHLORIDE 0.9% INJ 100 ML IV SCH (18:00)
[2016-05-15] MEDS: ATORVASTATIN 40 MG TAB PO SCH (20:46)
[2016-05-15] MEDS: PREGABALIN 25 MG CAP PO PRN (23:55)
[2016-05-16 00:31] VITALS: BP 164/77; PULSE 84; RESP 18; TEMP 97.9; O2SAT 96
[2016-05-16 04:00] VITALS: BP 168/74; PULSE 78; RESP 18; TEMP 98; O2SAT 93
[2016-05-16 07:12] LABS: BICARBONATE 25.8 MEQ/L (21.0-32.0); POTASSIUM 3.7 MEQ/L (3.5-5.1)
[2016-05-16 07:50] LABS: CALCIUM-PROTEIN CORRECTED 8.1 MG/DL (8.5-10.1)
[2016-05-16 08:04] VITALS: BP 140/63; PULSE 66; RESP 20; TEMP 97.8; O2SAT 96
[2016-05-16] MEDS ORDERED: POTASSIUM CHLORIDE 25 MEQ EFFERVESCENT TAB PO ONE (08:30)
[2016-05-16] MEDS: PANTOPRAZOLE SOD 40 MG DELAYED RELEASE TAB PO SCH (09:02)
[2016-05-16] MEDS: METOPROLOL TARTRATE 50 MG TAB PO SCH (09:02)
[2016-05-16] MEDS: ASPIRIN 325 MG TAB PO SCH (09:02)
[2016-05-16] MEDS: GENTAMICIN SULFATE 0.1% CREAM 15 GM TOP SCH (09:03)
[2016-05-16] MEDS: SODIUM CHLOR 0.9% 1000 ML INJ 1,000 ML IV SCH ×2 (09:03→16:49)
[2016-05-16 09:16] LABS: HEMATOCRIT 25.3 % (35.0-46.0); MEAN CELL VOLUME 86.8 FL (80.0-100.0); MEAN CORPUSCULAR HGB CONC 34.6 % (32.0-36.0); PLATELET COUNT 182 TH/MM3 (150-450); RED BLOOD COUNT 2.92 MIL/MM3 (4.00-5.30); REVIEW FLAG FINAL; WHITE BLOOD COUNT 3.7 TH/MM3 (4.0-11.0)
[2016-05-16 12:09] VITALS: BP 169/74; PULSE 75; RESP 18; TEMP 97.6; O2SAT 97
--- NOTE | 2016-05-16 15:16 | HHI.PR ---
Subjective Remarks Follow-up hyperkalemia/diarrhea/Left foot ischemic lesions first and fifth MPJ area as well as left hallux stable eschar, status post left hallux nail avulsion and now # +1/4 positive blood culture 05/16/16-patient seen and examined appears stable alert and oriented 3. Complaints of tailbone pain as patient with decubitus ulcer stage I. Potassium now normal. Patient with now 1 positive blood culture however afebrile. Case was discussed with patient's daughter via telephone call will requested consultation from Dr. Alba medical oncology Objective Vitals Vital Signs Date Time Temp Pulse Resp B/P Pulse Ox O2 Delivery O2 Flow Rate FiO2 05/16/16 12:09 97.6 75 18 169/74 97 05/16/16 08:04 97.8 66 20 140/63 96 05/16/16 07:39 Nasal Cannula 2.00 05/16/16 04:00 Nasal Cannula 2.00 05/16/16 04:00 98.0 78 18 168/74 93 05/16/16 00:31 97.9 84 18 164/77 96 05/16/16 00:31 Nasal Cannula 2.00 05/15/16 20:24 72 05/15/16 20:00 97.7 65 18 158/72 96 05/15/16 20:00 Nasal Cannula 2.00 05/15/16 16:03 96.9 69 18 139/65 100 I/O 05/15/16 05/15/16 05/15/16 05/16/16 05/16/16 05/16/16 07:00 15:00 23:00 07:00 15:00 23:00 Intake Total 120 ml 480 ml 1032 ml 997 ml 705 ml Balance 120 ml 480 ml 1032 ml 997 ml 705 ml Intake Oral 120 ml 480 ml IV Total 1032 ml 997 ml 705 ml # Voids 2 4 5 10 # Bowel Movements 1 0 Result Diagram: 05/16/16 0847 05/16/16 0541 Imaging Last Impressions Chest X-Ray 05/14/16 1651 Signed Impressions: Service Date/Time: Saturday, May 14, 2016 17:10 - CONCLUSION: No acute cardiopulmonary disease. Rom Engle MD Foot X-Ray 05/14/16 0000 Signed Impressions: Service Date/Time: Saturday, May 14, 2016 18:13 - CONCLUSION: Chronic changes and no evidence for acute fracture. Rom Engle MD Objective Remarks GENERAL: No acute distress SKIN: Warm and dry. Left discolored great toe-neurovascular intact HEAD: Normocephalic. EYES: No scleral icterus. No injection or drainage. NECK: Supple, trachea midline. No JVD or lymphadenopathy. CARDIOVASCULAR: Regular rate and rhythm without murmurs, gallops, or rubs. RESPIRATORY: Breath sounds equal bilaterally. No accessory muscle use. GASTROINTESTINAL: Abdomen soft, non-tender, nondistended. MUSCULOSKELETAL: No cyanosis, or edema. Left hemiplegia BACK: Nontender without obvious deformity. No CVA tenderness. A/P Problem List: (1) Hypokalemia ICD Code: E87.6 Status: Acute (2) Stage 1 decubitus ulcer ICD Code: L89.91 Status: Acute (3) Toe deformity ICD Code: M20.60 Status: Chronic Assessment and Plan 85-year-old female with 1Positive blood culture;05/24 BC however this appears to be contaminant and will repeat blood culture, hold on starting any antibiotics. 2Abnormal UA: Patient treated with Rocephin IV however as urine culture negative this was discontinued 05/15/16 3Hypokalemia: Secondary to GI loss, now resolved status post treatment 4.Diarrhea: Resolved, continue to hold stool softener 5Decubitus stage I ulcer: Repositioning every 2 hours hour; continue with current wound care 6Left foot ischemic lesions first and fifth MPJ area as well as left hallux stable eschar, status post left hallux nail avulsion: Appreciate input from podiatry, continue conservative treatment of offloading 7History of normochromic normocytic anemia: Chronic however rule out iron deficiency anemia and treat accordingly. 8Hypocalcemia: Treat with calcium gluconate IV 1 now and start oral supplement in a.m. 9Hypertension, hyperlipidemia, neuropathy: Continue outpatient medications 10History of CVA with left hemiplegia: Continue aspirin 11Chronic back pain: On Lyrica 12History of breast cancer: Courtesy consult to Dr. Hinds medical oncology DVT prophylaxis: Bilateral SCDs Discharge Planning Likely discharge 05/17/16 Problem Qualifiers (1) Stage 1 decubitus ulcer: Qualified Code: L89.151 - Decubitus ulcer of sacral region, stage 1 (2) Toe deformity: Qualified Code: M20.62 - Toe deformity, left Adrien Cruz MD May 16, 2016 15:15
[2016-05-16 16:35] VITALS: BP 147/67; PULSE 66; RESP 18; TEMP 97.6; O2SAT 98
[2016-05-16 20:00] VITALS: BP 167/74; PULSE 71; RESP 18; TEMP 97.3; O2SAT 95
--- NOTE | 2016-05-16 22:13 | MB ---
cc: SHAAN LORENZ DATE OF CONSULTATION 05/16/2016 REASON FOR CONSULTATION 1. History of breast cancer. 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 3. Chronic anemia. PATIENT PROFILE The patient is an 85-year-old white female. She has three sons and two daughters. She was born in [place], [place]. I believe she is still . Patient has lived in [place] since 1972. 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 She does not smoke and does not drink alcohol. HPI: I originally saw the patient in 2010 when she had a carcinoma of the right breast and underwent a right mastectomy and lymph node dissection on June 01, 2011. 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 She took Arimidex for a period of time and then it was recently stopped due to other medical problems. There was a question as to whether she had recurrent breast cancer and she had a PET scan on 04/18/2016 showing no evidence of metastatic disease. It showed a small pleural based nodule in the right upper lobe and a 3 mm nodule abutting the left fissure. These were felt to be benign and one could consider repeating a CT scan in 6 months. I saw her in the hospital when she had a right middle cerebral artery infarct with a left hemiplegia in March of 2016. 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 This is a rare event and has been documented following orthopedic surgery. 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 After several months her serotonin release assay became reverted to negative and Coumadin was discontinued and she has remained on aspirin. I am asked to see her not because of the HIT or the breast cancer, but because of her anemia. When she arrived at the hospital on 05/14 hemoglobin 9.5, white count 5000 and platelets 217,000. Hemoglobin has dropped to 8.8, white count 3700, and platelets 182,000. PT is 11.4, PTT is 32. On 05/14 the day of admission, sodium was 140, potassium was 1.7, chloride 92, CO2 was 40. Liver function tests were normal. Total albumin is 1.7. She had trauma to the left toe when she was in the halfway and this has resulted in adjacent ecchymoses and partial loss of the nail. There has been no history of bleeding. Her current anemia is not new. When one looks back to November of 2015 hemoglobins have been in the 8-10 range and at admission 05/14 the hemoglobin was 9.9 and iscurrently 8.8. On 12/10/2015 a ferritin was 217. Iron on 12/09 was 22 and TIBC was 204. A serum protein electrophoresis on 12/10/2015 showed no abnormal bands. PAST SURGICAL HISTORY 1. Appendectomy. 2. Cataract surgery. 3. Colon resection 1983. 4. Cholecystectomy 2010. 5. Right mastectomy and axillary dissection in 2011 for pathologic T2 N2a M0 ER positive breast cancer. 6. November 30, 2015 left distal radius fracture open reduction and internal fixation. PAST MEDICAL HISTORY 1. Right middle artery infarction with left hemiparesis secondary to HIT. 2. Right mastectomy May of 2011 for pathologic T2 N1a M0 ER positive breast cancer. 3. Chronic lower back pain. 4. Chronic anemia. MEDICATIONS PRIOR TO ADMISSION 1. Aspirin. 2. Amlodipine. 3. Atorvastatin. 4. Vitamin D3. 5. Calcium. 6. Magnesium. 7. Metoprolol. 8. Protonix. 9. Lyrica. 10. Tramadol. ALLERGIES NO SPECIFIC ALLERGIES. SHE IS LISTED HAVING A HEPARIN ALLERGY BUT IT DOES NOT APPEAR THAT THE HIT WAS DUE TO HEPARIN. IN ANY CASE I STILL WOULD NOT GIVE HER HEPARIN. REVIEW OF SYSTEMS Notable for weakness. Left hemiplegia. depression. mild sob. all other systems negative. PHYSICAL EXAMINATION VITAL SIGNS: Blood pressure is 140/60, respiratory rate 18, pulse 70, afebrile. O2 sat 98%. HEENT: Head is normocephalic. Sclerae and conjunctivae are normal. LYMPHATICS: There is no cervical, supraclavicular, axillary or inguinal adenopathy. HEART: Regular rhythm. LUNGS: Clear. ABDOMEN: Soft. No hepatosplenomegaly or masses. EXTREMITIES: Trace edema. The patient has a left hemiplegia with little or no movement of the left arm and leg. The left nail bed is partially removed and there is adjacent ecchymosis. The toe is warm. NEUROLOGICAL: Cognition, affect are normal. BREASTS: Left breast is without masses. Right chest wall without recurrence. SKIN: Shows a number of ecchymoses. ASSESSMENT 1. Previous history of breast cancer. No evidence of recurrence. There will be no treatment. 2. Previous HIT associated with orthopedic procedure to correct fractured hip. No evidence of active HIT. Platelet count is normal and there is no thrombotic event. Would avoid heparin although it was not the inciting event for her HIT. 3. Recent trauma to the left toe causing ecchymoses and elevation of the nail. 4. Severe hypokalemia. I am not sure why this occurred but it has been corrected. 5. She has what I would describe at this point as an anemia of chronic disease. She is very debilitated. Her albumin is low. She has had normal B12, iron studies, serum protein electrophoresis. When she came to the hospital her hemoglobin was 9.9 and on 02/04 it was 10. She normally runs hemoglobins of between 9-10 and I suspect that her current hemoglobin will soon increase and rise to this level. To further evaluate she would require a bone marrow aspirate and biopsy. At this point I would not recommend a transfusion. PLAN I have discussed the above with the patient's daughter by phone. Neither of us are inclined to pursue with the bone marrow aspirate and biopsy and I suspect that the yield would be low. At the moment I would not give her a transfusion but simply deal with her current problems, and her CBC and platelet count can be followed as an outpatient. If her hemoglobin drops significantly I would consider a transfusion. If the anemia worsens, clinically significant and is sustained then one could consider a bone marrow aspirate and biopsy, but given her degree of debilitation, the daughter might not pursue this and this would be understandable. MD BERE Wolff/JOSÉ LUIS /7:27 PM /9:40 PM ERICK
[2016-05-16] MEDS: ATORVASTATIN 40 MG TAB PO SCH (22:42)
[2016-05-17] VITALS (8 sets, daily range): BP systolic 135–162; BP diastolic 64–79; PULSE 75–91; RESP 18–24; TEMP 97.4–99; O2SAT 93–95
[2016-05-17] MEDS: METOPROLOL TARTRATE 50 MG TAB PO SCH (08:25)
[2016-05-17] MEDS: PANTOPRAZOLE SOD 40 MG DELAYED RELEASE TAB PO SCH (08:25)
[2016-05-17] MEDS: ASPIRIN 325 MG TAB PO SCH (08:25)
[2016-05-17] MEDS: GENTAMICIN SULFATE 0.1% CREAM 15 GM TOP SCH (08:26)
[2016-05-17 10:58] LABS: TRANSFERRIN IRON PROFILE 71 MG/DL (200-360)
--- NOTE | 2016-05-17 16:50 | HHI.PR ---
Subjective Remarks DW daughter at length at bedside. Patient has dementia. Daughter also concerned that she is getting more agitated. Daughter is concerned about her temperature. Last one 100.1 Patient has no new symptoms. Daughter reports that she is constipated. I discussed with Podiatry. Wound culture has been obtained from the toe. Objective Vitals Vital Signs Date Time Temp Pulse Resp B/P Pulse Ox O2 Delivery O2 Flow Rate FiO2 05/17/16 12:00 99.0 75 20 135/64 93 05/17/16 09:22 94 Nasal Cannula 2.00 05/17/16 08:00 Nasal Cannula 2.00 05/17/16 08:00 99.0 91 24 147/66 95 05/17/16 04:00 98.5 86 18 162/79 94 05/17/16 00:00 97.4 85 19 162/68 94 05/16/16 20:00 Nasal Cannula 2.00 05/16/16 20:00 97.3 71 18 167/74 95 I/O 05/16/16 05/16/16 05/16/16 05/17/16 05/17/16 05/17/16 07:00 15:00 23:00 07:00 15:00 23:00 Intake Total 997 ml 945 ml 824 ml 387 ml Balance 997 ml 945 ml 824 ml 387 ml Intake Oral 240 ml 340 ml 100 ml IV Total 997 ml 705 ml 484 ml 287 ml # Voids 10 2 4 3 # Bowel Movements 1 0 0 Result Diagram: 05/16/16 0847 05/16/16 0541 Imaging Last Impressions Chest X-Ray 05/14/16 1651 Signed Impressions: Service Date/Time: Saturday, May 14, 2016 17:10 - CONCLUSION: No acute cardiopulmonary disease. Rom Engle MD Foot X-Ray 05/14/16 0000 Signed Impressions: Service Date/Time: Saturday, May 14, 2016 18:13 - CONCLUSION: Chronic changes and no evidence for acute fracture. Rom Engle MD Objective Remarks GENERAL: demented patient, in no apparent distress. CARDIOVASCULAR: Regular rate and rhythm without murmurs, gallops, or rubs. RESPIRATORY: Clear to auscultation. Breath sounds equal bilaterally. No wheezes , rales, or rhonchi. GASTROINTESTINAL: Abdomen soft, non-tender, nondistended. Normal active bowel sounds MUSCULOSKELETAL: Left great toe nail is missing. Medially there is blistering of the skin with a serous drainage. Lateral left foot with an obvious pressure bruise. NEURO: Alert & Oriented but confused about current events. Psych: At times agitated. 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 Repeat blood cultures so far negative. No leukocytosis, no true fever. Continue to hold antibiotics. Will obtain chest x-ray in AM for mild cough. Continue to monitor temperature. 2Abnormal UA: Patient treated with Rocephin IV however abut urine culture negative. It was discontinued 05/15/16 3Hypokalemia: Secondary to GI loss, now resolved status post treatment 4. Constipation: Previously had Diarrhea. stool softeners were held. Now constipated. H/O severe impaction. Add Lactulose and monitor. 5Decubitus stage I ulcer: Repositioning every 2 hours hour; continue with current wound care 6Left foot ischemic lesions first and fifth MPJ area as well as left hallux stable eschar, status post left hallux nail avulsion: Appreciate input from podiatry, continue conservative treatment of offloading 7History of normochromic normocytic anemia: Chronic however rule out iron deficiency anemia and treat accordingly. 8Hypocalcemia: Treat with calcium gluconate IV 1 now and start oral supplement in a.m. 9Hypertension, hyperlipidemia, neuropathy: Continue outpatient medications 10History of CVA with left hemiplegia: Continue aspirin 11Chronic back pain: On Lyrica 12History of breast cancer:Dr. Hinds medical oncology advised supportive care and to attempt to correct current problems. Hold off on transfusion for now. 13- Dementia with behavioral disturbances: Start low dose Seroquel and monitor. DW daughter regarding the expected course of the disease. DVT prophylaxis: Bilateral SCDs Problem Qualifiers (1) Stage 1 decubitus ulcer: Qualified Code: L89.151 - Decubitus ulcer of sacral region, stage 1 (2) Toe deformity: Qualified Code: M20.62 - Toe deformity, left Lady Gonzales MD May 17, 2016 16:50
[2016-05-17] MEDS: SODIUM CHLOR 0.9% 1000 ML INJ 1,000 ML IV SCH (17:11)
--- NOTE | 2016-05-17 18:35 | PD.POD ---
Subjective Pain score: 2 Remarks seen bedside with daughter, patient does not like boots for feet. fever noted with nursing Past Med/Surg/Social History Social History Smoking Status: Never Smoker Objective Vital Signs Vital Signs Date Time Temp Pulse Resp B/P Pulse Ox O2 Delivery O2 Flow Rate FiO2 05/17/16 17:51 93 Nasal Cannula 2.00 05/17/16 12:00 99.0 75 20 135/64 93 05/17/16 09:22 94 Nasal Cannula 2.00 05/17/16 08:00 Nasal Cannula 2.00 05/17/16 08:00 99.0 91 24 147/66 95 05/17/16 04:00 98.5 86 18 162/79 94 05/17/16 00:00 97.4 85 19 162/68 94 05/16/16 20:00 Nasal Cannula 2.00 05/16/16 20:00 97.3 71 18 167/74 95 Coded Allergies: Heparin (Verified Adverse Reaction, Severe, 05/14/16) CAUSED THROMBOSIS Medications and IVs Administered Medications Medications (Trade) Dose Ordered Sig/Eduard Route PRN Reason Start Time Stop Time Status Last Admin Dose Admin Pantoprazole Sodium (Protonix) 40 mg DAILY PO 05/15/16 09:00 05/17/16 08:25 Hydralazine HCl (Apresoline) 10 mg Q6H PRN PO SBP>160, DBP>90 05/14/16 20:00 05/16/16 11:29 Amlodipine Besylate (Norvasc) 10 mg DAILY PO 05/15/16 09:00 05/17/16 08:25 Aspirin (Aspirin) 325 mg DAILY PO 05/15/16 09:00 05/17/16 08:25 Atorvastatin Calcium (Lipitor) 40 mg HS PO 05/15/16 21:00 05/16/16 22:42 Metoprolol Tartrate (Lopressor) 50 mg DAILY PO 05/15/16 09:00 05/17/16 08:25 Pregabalin (Lyrica) 50 mg BID PRN PO PAIN SCALE 1 TO 7 05/14/16 23:15 05/15/16 23:55 Gentamicin Sulfate APPLY TO LEFT HALLUX ... DAILY TOP 05/15/16 14:00 05/17/16 08:26 Sodium Chloride (NS 1000 ml Inj) 1,000 ml @ 42 mls/hr [id number] IV 05/16/16 16:00 05/17/16 17:11 Other Results Laboratory Tests Test 05/16/16 08:47 White Blood Count 3.7 TH/MM3 Red Blood Count 2.92 MIL/MM3 Hemoglobin 8.8 GM/DL Hematocrit 25.3 % Mean Corpuscular Volume 86.8 FL Mean Corpuscular Hemoglobin 30.0 PG Mean Corpuscular Hemoglobin 34.6 % Concent Red Cell Distribution Width 18.0 % Platelet Count 182 TH/MM3 Mean Platelet Volume 8.2 FL Laboratory Tests Test 05/15/16 05/16/16 05/17/16 21:35 05:41 09:17 Potassium Level 3.5 MEQ/L 3.7 MEQ/L Sodium Level 142 MEQ/L Chloride Level 106 MEQ/L Carbon Dioxide Level 25.8 MEQ/L Anion Gap 10 MEQ/L Blood Urea Nitrogen 6 MG/DL Creatinine 0.42 MG/DL Estimat Glomerular Filtration 143 ML/MIN Rate Random Glucose 72 MG/DL Calcium Level 7.4 MG/DL Protein Corrected Calcium 8.1 MG/DL Total Protein 5.8 GM/DL Iron Level 42 MCG/DL Total Iron Binding Capacity 99 MCG/DL Percent Iron Saturation 42.3 % Microbiology Date/Time Procedure Status Source Growth 05/16/16 17:00 Aerobic Blood Culture - Preliminary Resulted Blood Peripheral NO GROWTH IN 1 DAY 05/16/16 17:00 Anaerobic Blood Culture - Preliminary Resulted Blood Peripheral NO GROWTH IN 1 DAY 05/16/16 17:05 Aerobic Blood Culture - Preliminary Resulted Blood Peripheral NO GROWTH IN 1 DAY 05/16/16 17:05 Anaerobic Blood Culture - Preliminary Resulted Blood Peripheral NO GROWTH IN 1 DAY Physical Exam Remarks mild contractures noted of BL knees with limited ROM feet and ankles. General appearance: chronically ill, uncomfortable Orientation: person Details Left foot with superficial blistering of medial foot with clear and blood type drainage no obvious impressive redness, the hallux nail is absent without odor or drainage mild eschar noted, foot is warm with plantar lateral blistering noted with out obvious SOI, pulses are decreased however present. Assessment & Plan A/P Left Hallux SP nail avulsion, blistering of skin from likely pressure. Will try offloading with pillows and boots combine, wd cx taken, reviewed with medicine fever, hold on ABX for now. Will FU 1 day, continue woundcare. Paulino,Alireza B DPM May 17, 2016 18:35
[2016-05-17] MEDS ORDERED: LACTULOSE SYRUP 20 GM/30 ML CUP PO PRN (20:00)
[2016-05-17] MEDS: QUEtiapine FUMARATE 25 MG TAB PO SCH (20:49)
[2016-05-17] MEDS: ATORVASTATIN 40 MG TAB PO SCH (20:49)
[2016-05-17] MEDS ORDERED: LACTULOSE SYRUP 20 GM/30 ML CUP PO ONE (21:00)
[2016-05-17] MEDS ORDERED: PILL SPLITTER OTHER PRN (22:45)
[2016-05-18] VITALS (7 sets, daily range): BP systolic 118–156; BP diastolic 56–72; PULSE 62–90; RESP 18; TEMP 97.2–98.6; O2SAT 91–99
--- NOTE | 2016-05-18 06:09 | RADRPT ---
EXAM DATE/TIME: 05/18/2016 05:03 [facility] COMPARISON: CHEST SINGLE AP, May 14, 2016, 17:10. INDICATIONS : Shortness of breath, possible pulmonary disease. MEDICAL HISTORY : Carcinoma, breast. SURGICAL HISTORY : Mastectomy, right. ENCOUNTER: Subsequent ACUITY: 1 week PAIN SCORE: Non-responsive. LOCATION: Bilateral chest FINDINGS: A single AP semierect view of the chest was obtained. The study is more Midinspiratory with crowding of the lung vasculature. Patchy perihilar opacities are present with atherosclerotic change in the ao rta. The pulmonary arteries are prominent. There is blunting of the left costophrenic angle. The hear t size is within normal limits. Atherosclerotic calcifications are present in the aorta. There are mu ltiple overlying electrocardiogram leads. CONCLUSION: 1. Midinspiratory exam with crowding of the lung vasculature. The pulmonary arteries appear prominent with mild hazy opacity. 2. Probable left effusion. Aryan Briseno MD on May 18, 2016 at 6:06 Board Certified Radiologist. This report was verified electronically.
[2016-05-18] MEDS: ASPIRIN 325 MG TAB PO SCH (08:40)
[2016-05-18] MEDS: METOPROLOL TARTRATE 50 MG TAB PO SCH (08:40)
[2016-05-18] MEDS: GENTAMICIN SULFATE 0.1% CREAM 15 GM TOP SCH (08:40)
[2016-05-18] MEDS: QUEtiapine FUMARATE 25 MG TAB PO SCH ×2 (08:40→22:58)
[2016-05-18] MEDS: PANTOPRAZOLE SOD 40 MG DELAYED RELEASE TAB PO SCH (08:40)
[2016-05-18 08:59] LABS: HEMATOCRIT 26.6 % (35.0-46.0); MEAN CORPUSCULAR HEMOGLOBIN 29.8 PG (27.0-34.0); MEAN CORPUSCULAR HGB CONC 33.8 % (32.0-36.0); PLATELET COUNT 163 TH/MM3 (150-450); RED BLOOD COUNT 3.02 MIL/MM3 (4.00-5.30); REVIEW FLAG FINAL; WHITE BLOOD COUNT 2.8 TH/MM3 (4.0-11.0)
[2016-05-18 09:17] LABS: POTASSIUM 3.1 MEQ/L (3.5-5.1)
[2016-05-18] MEDS ORDERED: Vancomycin Consult Pharmacy 1 EA OTHER SCH (09:30)
--- NOTE | 2016-05-18 09:39 | HHI.PR ---
Subjective Remarks Patient is more calm this morning. Repeat Blood cultures became positive today for gram positive cocci. Objective Vitals Vital Signs Date Time Temp Pulse Resp B/P Pulse Ox O2 Delivery O2 Flow Rate FiO2 05/18/16 08:00 98.6 78 18 146/65 93 05/18/16 08:00 Nasal Cannula 2.00 05/18/16 08:00 92 Nasal Cannula 2.00 05/18/16 04:00 98.2 90 18 126/66 93 05/18/16 00:00 98.3 82 18 130/62 91 05/17/16 20:00 98.3 90 18 143/64 95 05/17/16 20:00 Nasal Cannula 2.00 05/17/16 17:51 93 Nasal Cannula 2.00 05/17/16 16:00 98.9 84 20 155/70 93 05/17/16 12:00 99.0 75 20 135/64 93 I/O 05/17/16 05/17/16 05/17/16 05/18/16 05/18/16 05/18/16 06:59 14:59 22:59 06:59 14:59 22:59 Intake Total 387 ml 642 ml 200 ml 602 ml Balance 387 ml 642 ml 200 ml 602 ml Intake Oral 100 ml 120 ml 200 ml 240 ml IV Total 287 ml 522 ml 362 ml # Voids 3 5 3 # Bowel Movements 0 0 6 Result Diagram: 05/18/16 0734 05/18/16 0734 Objective Remarks GENERAL: demented patient, in no apparent distress. CARDIOVASCULAR: Regular rate and rhythm without murmurs, gallops, or rubs. RESPIRATORY: Clear to auscultation. Breath sounds equal bilaterally. No wheezes , rales, or rhonchi. GASTROINTESTINAL: Abdomen soft, non-tender, nondistended. Normal active bowel sounds MUSCULOSKELETAL: Left great toe nail is missing. Medially there is blistering of the skin with a serous drainage. Lateral left foot with an obvious pressure bruise. NEURO: Alert & awake but confused about current events. Psych: Calm today. 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 This was thought to be a contaminant and patient was being monitored off antibiotics. Repeat blood cultures with preliminary 2/4 bottles growing gram pos. cocci. - Start Vancomycin. Consult ID 2Abnormal UA: Patient treated with Rocephin IV however abut urine culture negative. It was discontinued 05/15/16 3Hypokalemia: Secondary to GI loss, now resolved status post treatment 4. Constipation: Previously had Diarrhea. stool softeners were held. Now constipated. H/O severe impaction. Add Lactulose and monitor. 5Decubitus stage I ulcer: Repositioning every 2 hours hour; continue with current wound care 6Left foot ischemic lesions first and fifth MPJ area as well as left hallux stable eschar, status post left hallux nail avulsion: Appreciate input from podiatry, continue conservative treatment of offloading 7History of normochromic normocytic anemia: Chronic. Continue to monitor 8Hypocalcemia: Treat with calcium gluconate IV 1 now and start oral supplement in a.m. 9Hypertension, hyperlipidemia, neuropathy: Continue outpatient medications 10History of CVA with left hemiplegia: Continue aspirin 11Chronic back pain: On Lyrica 12History of breast cancer:Dr. Hinds medical oncology advised supportive care and to attempt to correct current problems. Hold off on transfusion for now. 13- Dementia with behavioral disturbances: Continue low dose Seroquel and monitor. DW daughter regarding the expected course of the disease. DVT prophylaxis: Bilateral SCDs Problem Qualifiers (1) Stage 1 decubitus ulcer: Qualified Code: L89.151 - Decubitus ulcer of sacral region, stage 1 (2) Toe deformity: Qualified Code: M20.62 - Toe deformity, left Lady Gonzales MD May 18, 2016 09:39
--- NOTE | 2016-05-18 09:50 | RADRPT ---
EXAM DATE/TIME: 05/18/2016 09:07 [facility] COMPARISON: CHEST SINGLE AP, May 18, 2016, 5:03. INDICATIONS : Cough, short of breath, weakness MEDICAL HISTORY : Carcinoma, breast. SURGICAL HISTORY : Mastectomy, right. ENCOUNTER: Subsequent ACUITY: 4 - 6 days PAIN SCORE: Non-responsive. LOCATION: Bilateral chest FINDINGS: Portable AP view of the chest demonstrates a normal-sized cardiac silhouette with calcification of th e aorta. Lungs are underinflated. There is stable opacity at the left mid and lower lung zone. No pne umothorax is visualized. Bones and soft tissues demonstrate no acute finding. Left proximal humerus h as a stable appearance. CONCLUSION: Stable chest x-ray with airspace opacity at the left lung base representing either atelectasis or con solidation. Tutu Kovacs MD on May 18, 2016 at 9:44 Board Certified Radiologist. This report was verified electronically.
[2016-05-18] MEDS ORDERED: VANCOMYCIN INJ 1,000 MG in SODIUM CHLOR 0.9% 250 ML INJ 250 ML IV SCH (10:00)
--- NOTE | 2016-05-18 13:13 | PD.CONS ---
History of Present Illness Service Infectious disease Consult Requested By Dr Pari Gonzales Reason for Consult Evaluate patient with positive blood culture Primary Care Physician Lucinda Randhawa MD Diagnoses: History of Present Illness Patient seen and examined. Records reviewed. Patient is a an 85-year-old female came from home, brought into the hospital for further evaluation of subjective fevers, and some cough. Patient apparently has been in the [facility] after a stroke that she had. She was removed from the [facility] by the family about 2 days ago. Apparently in the [facility] the big toe nail got accidentally partially removed, and it was changing color. Podiatry had seen the patient in the [facility] and had recommended x-ray and culture of the toe. The daughter had noticed that the patient had felt hot and she was coughing more than usual. He was apparently a dry cough. There is no mention that she had any nausea or vomiting or any diarrhea. On admission she has not had any fever. Patient was evaluated by podiatry for her toe and she apparently had some black discoloration on her toe , and also has a hemorrhagic blister noted on the medial aspect of her left foot. Cultures were obtained. She had cultures done and blood culture on admission has coag-negative staph. 2 repeat blood cultures have been done after that and those are also now reported as growing gram-positive cocci in pairs and clusters. Patient has no vascular port. She currently has no Terry catheter in place. Infectious disease consultation has been requested to evaluate the patient. Review of Systems Constitutional: DENIES: Fever, Chills Eyes: DENIES: Eye pain Ears, nose, mouth, throat: DENIES: Nasal discharge, Oral lesions, Throat pain, Ear Pain, Sinus Pain, Odynophagia Respiratory: COMPLAINS OF: Cough, DENIES: Sputum production Cardiovascular: DENIES: Chest pain, Palpitations Gastrointestinal: DENIES: Abdominal pain, Diarrhea, Nausea, Vomiting Genitourinary: COMPLAINS OF: Urinary incontinence, Dysuria Musculoskeletal: DENIES: Joint pain, Joint Swelling Immunologic/allergic: DENIES: Urticaria Neurologic: DENIES: Headache Past Family Social History Allergies: Coded Allergies: Heparin (Verified Adverse Reaction, Severe, 05/14/16) CAUSED THROMBOSIS Past Medical History Hypertension History of breast cancer, status post chemotherapy and right mastectomy Distant history of colon cancer requiring partial large bowel resection Hyperlipidemia GERD History of pancreatitis secondary to gallstone Osteoarthritis Osteoporosis 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 Lives with her and her daughter. Denies alcohol or smoking. Physical Exam Vital Signs Vital Signs Date Time Temp Pulse Resp B/P Pulse Ox O2 Delivery O2 Flow Rate FiO2 05/18/16 08:00 67 05/18/16 08:00 98.6 78 18 146/65 93 05/18/16 08:00 Nasal Cannula 2.00 05/18/16 08:00 92 Nasal Cannula 2.00 05/18/16 04:00 98.2 90 18 126/66 93 05/18/16 00:00 98.3 82 18 130/62 91 05/17/16 20:00 98.3 90 18 143/64 95 05/17/16 20:00 Nasal Cannula 2.00 05/17/16 17:51 93 Nasal Cannula 2.00 05/17/16 16:00 98.9 84 20 155/70 93 Physical Exam GENERAL: This is a well-nourished, well-developed female, awake and alert, not in respiratory distress. SKIN: Cool and dry. No generalized rash, no embolic lesions noted. HEAD: Atraumatic. Normocephalic. No temporal or scalp tenderness. EYES: Pale conjunctivae, no petechia or hemorrhage. Pupils equal round and reactive. Extraocular motions intact. No scleral icterus. No injection or drainage. ENT: Nose without bleeding, or purulent drainage. Dry oral mucosa. Throat without erythema, or tonsillar hypertrophy. Uvula midline. Airway patent. Has decreased nasolabial fold on L side NECK: Trachea midline. No JVD or lymphadenopathy. Supple, nontender, no meningeal signs. CARDIOVASCULAR: Regular rate and rhythm without murmurs, gallops, or rubs. Soft heart sounds RESPIRATORY: Clear to auscultation. Breath sounds equal bilaterally. No wheezes , rales, or rhonchi. Decreased breath sounds at bases. Scar on R chest C/W her hx of mastectomy GASTROINTESTINAL: Abdomen soft, nondistended, has tenderness on R side and in the loer quadrants and suprapubic region. No hepato-splenomegaly, or palpable masses. No guarding. MUSCULOSKELETAL: Extremities without clubbing, cyanosis. No joint tenderness, effusion, or edema noted. No calf tenderness. Negative Homans sign bilaterally. She has larger LUE than the RUE. L foot there is black eschar on the base of her big toe, and has purplish/hemorrhagic bulla on medial aspect of her foot. There are also purpuric areas on lateral aspect of that foot as well as on her toes, ?pressures from the boot. No erythema noted on her L foot, no lymphangitis. Well healed incision in her L wrist with no evidence of infection NEUROLOGICAL: Awake and alert. Decreased nasolabial fold on L. Motor almost 0 on her L side. Cranial nerves II through XII intact. Motor and sensory grossly within normal limits. Five out of 5 muscle strength in all muscle groups. Normal speech. LINE: PIV with no evidence of infection. No central line Laboratory Laboratory Tests Test 05/18/16 07:34 White Blood Count 2.8 Red Blood Count 3.02 Hemoglobin 9.0 Hematocrit 26.6 Mean Corpuscular Volume 88.0 Mean Corpuscular Hemoglobin 29.8 Mean Corpuscular Hemoglobin 33.8 Concent Red Cell Distribution Width 18.0 Platelet Count 163 Mean Platelet Volume 8.1 Sodium Level 140 Potassium Level 3.1 Chloride Level 106 Carbon Dioxide Level 27.0 Anion Gap 7 Blood Urea Nitrogen 5 Creatinine 0.51 Estimat Glomerular Filtration 115 Rate Random Glucose 77 Calcium Level 7.7 Date/Time Procedure Status Source Growth 05/17/16 18:30 Gram Stain - Final Resulted Wound Foot 05/17/16 18:30 Wound Culture Resulted Wound Foot Pending 05/16/16 17:05 Aerobic Blood Culture - Preliminary Resulted Blood Peripheral Gram Positive Cocci 05/16/16 17:05 Anaerobic Blood Culture - Preliminary Resulted Blood Peripheral NO GROWTH IN 2 DAYS 05/14/16 17:55 Urine Culture - Final Complete Urine Catheterized Urine NO GROWTH IN 48 HOURS. 05/14/16 17:50 Influenza Types A,B Antigen (SEJAL) - Final Complete Nasal Washing NEGATIVE FOR FLU A AND B ANTIGEN.... Result Diagram: 05/18/16 0734 05/18/16 0734 Imaging RADIOLOGY STUDIES/FILMS REVIEWED Chest X-Ray 05/18/16 0600 Signed Impressions: Service Date/Time: April 05:03 - CONCLUSION: 1. Midinspiratory exam with crowding of the lung vasculature. The pulmonary arteries appear prominent with mild hazy opacity. 2. Probable left effusion. Aryan Briseno MD Foot X-Ray 05/14/16 0000 Signed Impressions: Service Date/Time: Saturday, May 14, 2016 18:13 - CONCLUSION: Chronic changes and no evidence for acute fracture. Rom Engle MD Assessment and Plan Assessment and Plan IMPRESSION Staph bacteremia, has first with Coag Neg Staph and a second one out of 2 with Coag Neg Staph, ?real, source? she has no line, ? L foot Has black areas on her L big toe and purpuric areas on that foot, ?pressure Hx CVA with L sided weakness Mild pyuria, has no terry, ?retaining RECOMMENDATION Agree with repeat BC Echo Bladder scan Continue IV vancomycin Follow C/S Monitor progress I will determine course of Abx once work-up completed D/W RN to make podiatry aware of new abnormal areas on her L foot I will follow along with you Thank you for this consultation Annie Lopes MD May 18, 2016 13:13
[2016-05-18] MEDS: VANCOMYCIN INJ 1,500 MG in SODIUM CHLORID 0.9% 500 ML INJ 500 ML IV SCH (13:44)
[2016-05-18] MEDS: SODIUM CHLOR 0.9% 1000 ML INJ 1,000 ML IV SCH (17:35)
--- NOTE | 2016-05-18 19:43 | PD.POD ---
Subjective Pain score: 2 Remarks seen bedside with daughter, patient does not like boots for feet. Past Med/Surg/Social History Social History Smoking Status: Never Smoker Objective Vital Signs Vital Signs Date Time Temp Pulse Resp B/P Pulse Ox O2 Delivery O2 Flow Rate FiO2 05/18/16 16:00 98.0 62 18 152/71 93 05/18/16 12:00 98.2 64 18 118/56 93 05/18/16 08:00 67 05/18/16 08:00 98.6 78 18 146/65 93 05/18/16 08:00 Nasal Cannula 2.00 05/18/16 08:00 92 Nasal Cannula 2.00 05/18/16 04:00 98.2 90 18 126/66 93 05/18/16 00:00 98.3 82 18 130/62 91 05/17/16 20:00 98.3 90 18 143/64 95 05/17/16 20:00 Nasal Cannula 2.00 Coded Allergies: Heparin (Verified Adverse Reaction, Severe, 05/14/16) CAUSED THROMBOSIS Physical Exam Remarks Left foot with superficial blistering of medial foot with clear and blood type drainage no obvious impressive redness, the hallux nail is absent without odor or drainage mild eschar noted, foot is warm with plantar lateral blistering noted with out obvious SOI, pulses are decreased however present. Assessment & Plan A/P Left Hallux SP nail avulsion, blistering of skin from likely pressure. Reviewed ID concerns, patient is challenging to offload. Will try offloading with pillows and boots combined, wd cx reviewed from foot no growth. Some improvement, continue woundcare, Fu 1-2 days Alireza Bob DPM May 18, 2016 19:43
[2016-05-18] MEDS: ATORVASTATIN 40 MG TAB PO SCH (20:43)
--- NOTE | 2016-05-18 21:02 | EC ---
Study Study Date:05/18/2016 STUDY CONCLUSIONS SUMMARY - Left ventricle: The cavity size was normal. Wall thickness was normal. Systolic function was normal. The estimated ejection fraction was in the range of 50% to 55%. Wall motion was normal; there were no regional wall motion abnormalities. - Aortic valve: Valve area: 1.4cm^2(VTI). Valve area: 1.29cm^2 (Vmax). - Mitral valve: Mild regurgitation. - Tricuspid valve: Mild regurgitation. - Pulmonary arteries: PA peak pressure: 31mm Hg (S). Impressions: No evidence of endocarditis. If LV function is below 40, please consider prescribing an ACEI or ARB or document rationale for non-use. PROCEDURE DATA STUDY STATUS: Elective. Procedure: Transthoracic echocardiography. Image quality was good. Scanning was performed from the parasternal, apical, and subcostal acoustic windows. Study completion: The patient tolerated the procedure well. Transthoracic echocardiography. M-mode, complete 2D, complete spectral Doppler, and color Doppler. Height: Height: 64in. Weight: Weight: 146.7lb. Body mass index: BMI: 25.2kg/m^2. Body surface area: BSA: 1.72m^2. Patient status: Inpatient. CARDIAC ANATOMY LEFT VENTRICLE: The cavity size was normal. Wall thickness was normal. Systolic function was normal. The estimated ejection fraction was in the range of 50% to 55%. Wall motion was normal; there were no regional wall motion abnormalities. AORTIC VALVE: Trileaflet; normal thickness leaflets. Doppler: Transvalvular velocity was within the normal range. There was no stenosis. No regurgitation. Valve area: 1.4cm^2(VTI). Indexed valve area: 0.81cm^2/m^2 (VTI). Valve area: 1.29cm^2 (Vmax). Indexed valve area: 0.75cm^2/m^2 (Vmax). Mean gradient: 4mm Hg (S). AORTA: Aortic root: The aortic root was normal in size. MITRAL VALVE: Structurally normal valve. Doppler: Transvalvular velocity was within the normal range. There was no evidence for stenosis. Mild regurgitation. LEFT ATRIUM: The atrium was normal in size. RIGHT VENTRICLE: The cavity size was normal. Wall thickness was normal. PULMONIC VALVE: Doppler: Transvalvular velocity was within the normal range. There was no evidence for stenosis. No regurgitation. TRICUSPID VALVE: Structurally normal valve. Doppler: Transvalvular velocity was within the normal range. Mild regurgitation. PULMONARY ARTERY: The main pulmonary artery was normal-sized. Systolic pressure was within the normal range. RIGHT ATRIUM: The atrium was normal in size. PERICARDIUM: There was no pericardial effusion. SYSTEMIC VEINS: Inferior vena cava: The vessel was normal in size. Patient weight: 146.7lb _Ejection fraction:_ 65-75% _Fractional shortening:_ 32% up to 5Kg 5-11.5Kg 11.6-22.9Kg 23-45Kg 45-57Kg Aortic Root 7-13 <17 13-22 17-27 17-27 LA diam 6-13 <23 24-38 33-47 37-40 RVID 10-17 7-15 7-15 7-18 8-17 LVIDd 12-22 <32 24-38 33-47 37-40 LVPW 2-4 3-6 5-7 6-8 7-8 IVS 2-4 3-6 5-7 6-8 7-8 BASIC MEASUREMENTS ADULT NORMAL Left ventricle LV internal dimension, ED, chordal *52.7 mm 43-52 level, PLAX LV internal dimension, ES, chordal *41 mm 23-38 level, PLAX Fractional shortening, chordal level, *22 % >29 PLAX LV posterior wall thickness, ED 11.2 mm IVS/LVPW ratio, ED 1.01 <1.3 Ventricular septum Septal thickness, ED 11.3 mm Aortic valve Leaflet separation 16 mm 15-26 Aorta Root diameter, ED 33 mm Left atrium Anterior-posterior dimension 33 mm Anterior-posterior dimension index 1.92 cm/m^2 <2.2 Right ventricle RV internal dimension, ED, PLAX 28.8 mm 19-38 BASIC MEASUREMENTS ADULT NORMAL Aortic valve Leaflet separation 16 mm 15-26 DOPPLER MEASUREMENTS ADULT NORMAL Main pulmonary artery Pressure, S *31 mm Hg =30 Aortic valve Peak velocity, S 149 cm/s Mean velocity, S 97.3 cm/s VTI, S 30.4 cm Mean gradient, S 4 mm Hg Valve area, VTI 1.4 cm^2 Valve area index, VTI 0.81 cm^2/m^2 Valve area, Vmax 1.29 cm^2 Valve area index, Vmax 0.75 cm^2/m^2 Mitral valve Peak E-wave velocity 53.8 cm/s Peak A-wave velocity 84.4 cm/s Deceleration time 208 ms 150-230 Peak E/A ratio 0.6 Tricuspid valve Regurgitant peak velocity 236 cm/s Peak RV-RA gradient, S 22 mm Hg Maximal regurgitant velocity 236 cm/s Systemic veins Estimated CVP 10 mm Hg Right ventricle RV pressure, S *32 mm Hg <30 Pulmonic valve Peak velocity, S 48.3 cm/s LEGEND: Mean values are shown as u=mean value. Asterisk (*) cooney values outside specified normal range. Prepared and signed by Avel Ahn [id number]
[2016-05-19] VITALS (10 sets, daily range): BP systolic 110–168; BP diastolic 60–70; PULSE 52–80; RESP 16–24; TEMP 97.3–98.2; O2SAT 90–99
[2016-05-19] MEDS: PREGABALIN 25 MG CAP PO PRN (00:50)
[2016-05-19 06:44] LABS: BASOPHIL % 0.8 % (0.0-2.0); EOSINOPHIL # 0.1 TH/MM3 (0-0.4); EOSINOPHIL % 4.2 % (0.0-4.0); HEMO FLAGS DIFF FINAL; LYMPH % 50.1 % (9.0-44.0); LYMPHOCYTE # 1.4 TH/MM3 (1.0-4.8); MEAN CELL VOLUME 86.4 FL (80.0-100.0); MEAN CORPUSCULAR HEMOGLOBIN 30.4 PG (27.0-34.0); MEAN CORPUSCULAR HGB CONC 35.2 % (32.0-36.0); MONO % 8.6 % (0.0-8.0); NEUT % 36.3 % (16.0-70.0); PLATELET COUNT 167 TH/MM3 (150-450); RED BLOOD COUNT 2.66 MIL/MM3 (4.00-5.30); RED CELL DISTRIBUTION WIDTH 18.2 % (11.6-17.2); WHITE BLOOD COUNT 2.7 TH/MM3 (4.0-11.0)
[2016-05-19] MEDS: METOPROLOL TARTRATE 50 MG TAB PO SCH (08:03)
[2016-05-19] MEDS: ASPIRIN 325 MG TAB PO SCH (08:03)
[2016-05-19] MEDS: PANTOPRAZOLE SOD 40 MG DELAYED RELEASE TAB PO SCH (08:03)
[2016-05-19] MEDS: QUEtiapine FUMARATE 25 MG TAB PO SCH ×2 (08:03→20:56)
[2016-05-19] MEDS: GENTAMICIN SULFATE 0.1% CREAM 15 GM TOP SCH (08:03)
--- NOTE | 2016-05-19 08:29 | PD.ONC.PN ---
Subjective Subjective Remarks lethargic Objective Data Date Time Temp Pulse Resp B/P Pulse Ox O2 Delivery O2 Flow Rate FiO2 05/19/16 04:00 97.3 75 16 138/65 94 05/19/16 00:00 98.0 80 18 126/65 97 05/18/16 20:00 76 05/18/16 20:00 97.2 74 18 156/72 97 05/18/16 20:00 Nasal Cannula 2.00 05/18/16 19:56 99 Nasal Cannula 2.00 05/18/16 16:00 98.0 62 18 152/71 93 05/18/16 12:00 98.2 64 18 118/56 93 05/19/16 05/19/16 05/19/16 06:59 14:59 22:59 Intake Total 240 ml Output Total 350 ml Balance -110 ml Result Diagram: 05/19/16 0606 05/18/16 0734 Laboratory Results Laboratory Tests Test 05/19/16 06:06 White Blood Count 2.7 TH/MM3 Red Blood Count 2.66 MIL/MM3 Hemoglobin 8.1 GM/DL Hematocrit 23.0 % Mean Corpuscular Volume 86.4 FL Mean Corpuscular Hemoglobin 30.4 PG Mean Corpuscular Hemoglobin 35.2 % Concent Red Cell Distribution Width 18.2 % Platelet Count 167 TH/MM3 Mean Platelet Volume 8.0 FL Neutrophils (%) (Auto) 36.3 % Lymphocytes (%) (Auto) 50.1 % Monocytes (%) (Auto) 8.6 % Eosinophils (%) (Auto) 4.2 % Basophils (%) (Auto) 0.8 % Neutrophils # (Auto) 1.0 TH/MM3 Lymphocytes # (Auto) 1.4 TH/MM3 Monocytes # (Auto) 0.2 TH/MM3 Eosinophils # (Auto) 0.1 TH/MM3 Basophils # (Auto) 0.0 TH/MM3 CBC Comment DIFF FINAL Differential Comment Culture Results Microbiology Date/Time Procedure Status Source Growth 05/16/16 17:00 Aerobic Blood Culture - Preliminary Resulted Blood Peripheral Staph Sp Coagulase Negative 05/16/16 17:00 Anaerobic Blood Culture - Preliminary Resulted Blood Peripheral NO GROWTH IN 2 DAYS 05/16/16 17:05 Aerobic Blood Culture - Preliminary Resulted Blood Peripheral Gram Positive Cocci 05/16/16 17:05 Anaerobic Blood Culture - Preliminary Resulted Blood Peripheral NO GROWTH IN 2 DAYS 05/17/16 18:30 Gram Stain - Final Resulted Wound Foot 05/17/16 18:30 Wound Culture - Preliminary Resulted Wound Foot NO GROWTH IN 24 HOURS. 05/18/16 16:09 Aerobic Blood Culture Received Blood Peripheral Pending 05/18/16 16:09 Anaerobic Blood Culture Received Blood Peripheral Pending 05/18/16 16:14 Aerobic Blood Culture Received Blood Peripheral Pending 05/18/16 16:14 Anaerobic Blood Culture Received Blood Peripheral Pending 05/19/16 06:06 Aerobic Blood Culture Received Blood Peripheral Pending 05/19/16 06:06 Anaerobic Blood Culture Received Blood Peripheral Pending Administered Medications Medications (Trade) Dose Ordered Sig/Eduard Route PRN Reason Start Time Stop Time Status Last Admin Dose Admin Pantoprazole Sodium (Protonix) 40 mg DAILY PO 05/15/16 09:00 05/19/16 08:03 Hydralazine HCl (Apresoline) 10 mg Q6H PRN PO SBP>160, DBP>90 05/14/16 20:00 05/16/16 11:29 Amlodipine Besylate (Norvasc) 10 mg DAILY PO 05/15/16 09:00 05/19/16 08:02 Aspirin (Aspirin) 325 mg DAILY PO 05/15/16 09:00 05/19/16 08:03 Atorvastatin Calcium (Lipitor) 40 mg HS PO 05/15/16 21:00 05/18/16 20:43 Metoprolol Tartrate (Lopressor) 50 mg DAILY PO 05/15/16 09:00 05/19/16 08:03 Pregabalin (Lyrica) 50 mg BID PRN PO PAIN SCALE 1 TO 7 05/14/16 23:15 05/19/16 00:50 Gentamicin Sulfate APPLY TO LEFT HALLUX ... DAILY TOP 05/15/16 14:00 05/19/16 08:03 Sodium Chloride (NS 1000 ml Inj) 1,000 ml @ 42 mls/hr [id number] IV 05/16/16 16:00 05/18/16 17:35 Quetiapine Fumarate 12.5 mg 12.5 mg BID PO 05/17/16 21:00 05/19/16 08:03 Vancomycin HCl/ Sodium Chloride (Vancomycin Inj/ NS 500 ml Inj) 515 ml @ 250 mls/hr Q24H IV 05/18/16 12:00 05/18/16 13:44 Objective Remarks GENERAL: lethargic with left hemiparesis SKIN: Warm and dry. HEAD: Normocephalic. EYES: No scleral icterus. No injection or drainage. NECK: Supple, trachea midline. No JVD or lymphadenopathy. LYMPHATIC: No adenopathy. CARDIOVASCULAR: Regular rate and rhythm without murmurs. RESPIRATORY: Breath sounds equal bilaterally. No accessory muscle use. GASTROINTESTINAL: Abdomen soft, non-tender, nondistended. EXTREMITIES: left toe worse with slight drainage MUSCULOSKELETAL: muscle wasting NEUROLOGICAL: no movement left arm and leg which is old . PSYCHIATRIC: Appropriate mood and affect; insight and judgment normal. Assessment/Plan Assessment 1: cytopenias primarily due to chronic disease and ongoing infection. If hemoglobin drops much below 7 would simply transfuse. 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 Sha Hinds MD May 19, 2016 08:28
[2016-05-19] MEDS: VANCOMYCIN INJ 1,500 MG in SODIUM CHLORID 0.9% 500 ML INJ 500 ML IV SCH (11:18)
[2016-05-19] MEDS: SODIUM CHLOR 0.9% 1000 ML INJ 1,000 ML IV SCH (11:18)
--- NOTE | 2016-05-19 14:05 | RADRPT ---
EXAM DATE/TIME: 05/19/2016 13:36 [facility] COMPARISON: SHOULDER LEFT COMPLETE (>2VWS), January 07, 2016, 10:43. INDICATIONS : Pain. MEDICAL HISTORY : None. SURGICAL HISTORY : None. ENCOUNTER: Initial ACUITY: 1 day PAIN SCORE: 1/10 LOCATION: Left shoulder. FINDINGS: Bony structures are osteopenic. There is mild degenerative change of the a.c. joint. No dislocation a ppreciated. Healing proximal humeral sup E. fracture is appreciated unchanged. CONCLUSION: Healing proximal humeral fracture stable and unchanged Agapito Mcintosh MD on May 19, 2016 at 14:03 Board Certified Radiologist. This report was verified electronically.
--- NOTE | 2016-05-19 14:15 | HHI.IDPN ---
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 Vital Signs Date Time Temp Pulse Resp B/P Pulse Ox O2 Delivery O2 Flow Rate FiO2 05/19/16 12:00 98.2 65 20 110/60 90 05/19/16 08:31 Nasal Cannula 2.00 05/19/16 08:17 92 21 05/19/16 08:00 97.6 76 24 138/63 96 05/19/16 04:00 97.3 75 16 138/65 94 05/19/16 00:00 98.0 80 18 126/65 97 05/18/16 20:00 76 05/18/16 20:00 97.2 74 18 156/72 97 05/18/16 20:00 Nasal Cannula 2.00 05/18/16 19:56 99 Nasal Cannula 2.00 05/18/16 16:00 98.0 62 18 152/71 93 05/18/16 05/18/16 05/19/16 15:00 23:00 07:00 Intake Total 120 ml 240 ml 240 ml Output Total 950 ml 350 ml Balance 120 ml -710 ml -110 ml Intake Oral 120 ml 240 ml 240 ml Output Urine Total 950 ml 350 ml Bladder Scan Volume Amount 604 ml # Voids 3 # Bowel Movements 1 2 1 . Laboratory Tests Test 05/18/16 05/19/16 07:34 06:06 White Blood Count 2.8 TH/MM3 2.7 TH/MM3 Red Blood Count 3.02 MIL/MM3 2.66 MIL/MM3 Hemoglobin 9.0 GM/DL 8.1 GM/DL Hematocrit 26.6 % 23.0 % Mean Corpuscular Volume 88.0 FL 86.4 FL Mean Corpuscular Hemoglobin 29.8 PG 30.4 PG Mean Corpuscular Hemoglobin 33.8 % 35.2 % Concent Red Cell Distribution Width 18.0 % 18.2 % Platelet Count 163 TH/MM3 167 TH/MM3 Mean Platelet Volume 8.1 FL 8.0 FL Neutrophils (%) (Auto) 36.3 % Lymphocytes (%) (Auto) 50.1 % Monocytes (%) (Auto) 8.6 % Eosinophils (%) (Auto) 4.2 % Basophils (%) (Auto) 0.8 % Neutrophils # (Auto) 1.0 TH/MM3 Lymphocytes # (Auto) 1.4 TH/MM3 Monocytes # (Auto) 0.2 TH/MM3 Eosinophils # (Auto) 0.1 TH/MM3 Basophils # (Auto) 0.0 TH/MM3 CBC Comment DIFF FINAL Differential Comment Laboratory Tests Test 05/18/16 07:34 Sodium Level 140 MEQ/L Potassium Level 3.1 MEQ/L Chloride Level 106 MEQ/L Carbon Dioxide Level 27.0 MEQ/L Anion Gap 7 MEQ/L Blood Urea Nitrogen 5 MG/DL Creatinine 0.51 MG/DL Estimat Glomerular Filtration 115 ML/MIN Rate Random Glucose 77 MG/DL Calcium Level 7.7 MG/DL Microbiology Date/Time Procedure Status Source Growth 05/16/16 17:00 Aerobic Blood Culture - Preliminary Resulted Blood Peripheral Staph Sp Coagulase Negative 05/16/16 17:00 Anaerobic Blood Culture - Preliminary Resulted Blood Peripheral NO GROWTH IN 3 DAYS 05/16/16 17:05 Aerobic Blood Culture - Preliminary Resulted Blood Peripheral Staph Sp Coagulase Negative 05/16/16 17:05 Anaerobic Blood Culture - Preliminary Resulted Blood Peripheral NO GROWTH IN 3 DAYS 05/17/16 18:30 Gram Stain - Final Resulted Wound Foot 05/17/16 18:30 Wound Culture - Preliminary Resulted Gram Positive Cocci 05/18/16 16:09 Aerobic Blood Culture - Preliminary Resulted Blood Peripheral NO GROWTH IN 1 DAY 05/18/16 16:09 Anaerobic Blood Culture - Preliminary Resulted Blood Peripheral NO GROWTH IN 1 DAY 05/18/16 16:14 Aerobic Blood Culture - Preliminary Resulted Blood Peripheral NO GROWTH IN 1 DAY 05/18/16 16:14 Anaerobic Blood Culture - Preliminary Resulted Blood Peripheral NO GROWTH IN 1 DAY 05/19/16 06:06 Aerobic Blood Culture Received Blood Peripheral Pending 05/19/16 06:06 Anaerobic Blood Culture Received Blood Peripheral Pending Imaging Chest X-Ray 05/18/16 0600 Signed Impressions: Service Date/Time: April 05:03 - CONCLUSION: 1. Midinspiratory exam with crowding of the lung vasculature. The pulmonary arteries appear prominent with mild hazy opacity. 2. Probable left effusion. Aryan Briseno MD Foot X-Ray 05/14/16 0000 Signed Impressions: Service Date/Time: Saturday, May 14, 2016 18:13 - CONCLUSION: Chronic changes and no evidence for acute fracture. Rom Engle MD Physical Exam GENERAL: Lethargic, not in respiratory distress. SKIN: Cool and dry. No generalized rash, no embolic lesions noted. HEAD: Atraumatic. Normocephalic. No temporal or scalp tenderness. EYES: Pale conjunctivae, no petechia or hemorrhage. No scleral icterus. No injection or drainage. ENT: Nose without bleeding, or purulent drainage. Dry oral mucosa. NECK: Trachea midline. No JVD or lymphadenopathy. Supple, nontender, no meningeal signs. CARDIOVASCULAR: Regular rate and rhythm without murmurs, gallops, or rubs. Soft heart sounds RESPIRATORY: Clear to auscultation. Breath sounds equal bilaterally. No wheezes , rales, or rhonchi. Decreased breath sounds at bases. Scar on R chest C/W her hx of mastectomy GASTROINTESTINAL: Abdomen soft, nondistended, has mild tenderness. MUSCULOSKELETAL: Extremities without clubbing, cyanosis. No joint tenderness, effusion, or edema noted. No calf tenderness. Negative Homans sign bilaterally. She has larger LUE than the RUE. L foot there is black eschar on the base of her big toe, and has purplish/hemorrhagic bulla on medial aspect of her foot. There are also purpuric areas on lateral aspect of that foot as well as on her toes, ?pressures from the boot, looks same. No erythema noted on her L foot , no lymphangitis. Well healed incision in her L wrist with no evidence of infection NEUROLOGICAL: Opens eyes when stimulated, goes back to sleep LINE: PIV with no evidence of infection. No central line Assessment & Plan Remarks IMPRESSION Staph bacteremia, has first with Coag Neg Staph and a second one out of 2 with Coag Neg Staph, ?real, source? she has no line, ? L foot Has black areas on her L big toe and purpuric areas on that foot, ?pressure Hx CVA with L sided weakness Mild pyuria, has urinary retention, terry placed 05/18 RECOMMENDATION Follow C/S Continue IV vancomycin Follow C/S Monitor progress I will determine course of Abx once work-up completed Wound care per podiatry Dr Castaneda available prn this weekend if with any ID issue or question I will be back Sunday Annie Lopes MD May 19, 2016 14:15
--- NOTE | 2016-05-19 14:29 | HHI.PR ---
Subjective Remarks Physical therapy raised concerned about possible left shoulder dislocation. Patient reports mild pain on the left shoulder. DW RN. Still have periods of agitation. Objective Vitals Vital Signs Date Time Temp Pulse Resp B/P Pulse Ox O2 Delivery O2 Flow Rate FiO2 05/19/16 12:00 98.2 65 20 110/60 90 05/19/16 08:31 Nasal Cannula 2.00 05/19/16 08:17 92 21 05/19/16 08:00 97.6 76 24 138/63 96 05/19/16 04:00 97.3 75 16 138/65 94 05/19/16 00:00 98.0 80 18 126/65 97 05/18/16 20:00 76 05/18/16 20:00 97.2 74 18 156/72 97 05/18/16 20:00 Nasal Cannula 2.00 05/18/16 19:56 99 Nasal Cannula 2.00 05/18/16 16:00 98.0 62 18 152/71 93 I/O 05/18/16 05/18/16 05/18/16 05/19/16 05/19/16 05/19/16 07:00 15:00 23:00 07:00 15:00 23:00 Intake Total 602 ml 120 ml 240 ml 240 ml Output Total 950 ml 350 ml Balance 602 ml 120 ml -710 ml -110 ml Intake Oral 240 ml 120 ml 240 ml 240 ml IV Total 362 ml Output Urine Total 950 ml 350 ml Bladder Scan Volume Amount 604 ml # Voids 3 # Bowel Movements 6 1 2 1 Result Diagram: 05/19/16 0606 05/18/16 0734 Objective Remarks GENERAL: demented patient, in no apparent distress. CARDIOVASCULAR: Regular rate and rhythm without murmurs, gallops, or rubs. RESPIRATORY: Clear to auscultation. Breath sounds equal bilaterally. No wheezes , rales, or rhonchi. GASTROINTESTINAL: Abdomen soft, non-tender, nondistended. Normal active bowel sounds MUSCULOSKELETAL: Left great toe nail is missing. Medially there is blistering of the skin with a serous drainage. Lateral left foot with an obvious pressure bruise. NEURO: Alert & awake but confused about current events. Psych: Calm today. 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 This was thought to be a contaminant and patient was being monitored off antibiotics. Repeat blood cultures with preliminary 2/4 bottles growing gram pos. cocci. -Infectious disease following. Continue vancomycin. Repeat blood cultures pending. 2Abnormal UA: Patient treated with Rocephin IV however abut urine culture negative. It was discontinued 05/15/16 3Hypokalemia: Secondary to GI loss, now resolved status post treatment 4. Constipation: Previously had Diarrhea. stool softeners were held. Now constipated. H/O severe impaction. Lactulose and monitor. 5Decubitus stage I ulcer: Repositioning every 2 hours hour; continue with current wound care 6Left foot ischemic lesions first and fifth MPJ area as well as left hallux stable eschar, status post left hallux nail avulsion: Appreciate input from podiatry, continue conservative treatment of offloading 7History of normochromic normocytic anemia: Chronic. Okay to transfuse for hemoglobin less than 8. Continue to monitor 8Hypocalcemia: Continue oral supplementation. 9Hypertension, hyperlipidemia, neuropathy: Continue outpatient medications 10History of CVA with left hemiplegia: Continue aspirin 11Chronic back pain: On Lyrica 12History of breast cancer:Dr. Hinds medical oncology advised supportive care and to attempt to correct current problems. Okay to transfuse for hemoglobin less than 8. 13- Dementia with behavioral disturbances: Continue low dose Seroquel and monitor. DW daughter regarding the expected course of the disease. DVT prophylaxis: Bilateral SCDs Problem Qualifiers (1) Stage 1 decubitus ulcer: Qualified Code: L89.151 - Decubitus ulcer of sacral region, stage 1 (2) Toe deformity: Qualified Code: M20.62 - Toe deformity, left Lady Gonzales MD May 19, 2016 14:29
[2016-05-19] MEDS: ATORVASTATIN 40 MG TAB PO SCH (20:56)
[2016-05-20] VITALS (9 sets, daily range): BP systolic 105–147; BP diastolic 49–72; PULSE 62–79; RESP 16–18; TEMP 97.5–98.6; O2SAT 96–98
[2016-05-20] MEDS: PANTOPRAZOLE SOD 40 MG DELAYED RELEASE TAB PO SCH (09:39)
[2016-05-20] MEDS: ASPIRIN 325 MG TAB PO SCH (09:39)
[2016-05-20] MEDS: QUEtiapine FUMARATE 25 MG TAB PO SCH ×2 (09:40→20:47)
[2016-05-20] MEDS: GENTAMICIN SULFATE 0.1% CREAM 15 GM TOP SCH (09:40)
[2016-05-20] MEDS: METOPROLOL TARTRATE 50 MG TAB PO SCH (09:40)
--- NOTE | 2016-05-20 09:46 | PD.POD ---
Subjective Pain score: 2 Remarks seen bedside patient does not like boots for feet. Past Med/Surg/Social History Social History Smoking Status: Never Smoker Objective Vital Signs Vital Signs Date Time Temp Pulse Resp B/P Pulse Ox O2 Delivery O2 Flow Rate FiO2 05/20/16 08:00 97.5 75 16 105/49 97 05/20/16 04:00 98.0 79 18 120/58 98 05/20/16 00:00 98.2 75 18 136/72 96 05/19/16 20:50 Nasal Cannula 2.00 05/19/16 20:26 93 05/19/16 20:09 65 05/19/16 20:00 98.0 64 18 158/70 99 05/19/16 16:00 98.2 52 16 168/70 94 05/19/16 12:00 98.2 65 20 110/60 90 Coded Allergies: Heparin (Verified Adverse Reaction, Severe, 05/14/16) CAUSED THROMBOSIS Physical Exam Remarks Left foot with superficial blistering of medial foot with clear and blood type drainage no obvious impressive redness, blisters are drying up, the hallux nail is absent without odor or drainage mild eschar noted, foot is warm with plantar lateral blistering noted with out obvious SOI, pulses are decreased however present. Assessment & Plan A/P Left Hallux SP nail avulsion, blistering of skin from likely pressure- Improving Reviewed ID concerns, patient is challenging to offload. Will try offloading with pillows and boots combined, wd cx reviewed from foot no growth. Blisters are drying up, continue woundcare foam bandages and offloading with pillows, Fu 2-3days. Alireza Bob DPM May 20, 2016 09:46
[2016-05-20] MEDS: VANCOMYCIN INJ 1,500 MG in SODIUM CHLORID 0.9% 500 ML INJ 500 ML IV SCH (12:11)
--- NOTE | 2016-05-20 15:33 | HHI.PR ---
Subjective Remarks Patient is calm today. She reports that she is feeling ok. No pain. Objective Vitals Vital Signs Date Time Temp Pulse Resp B/P Pulse Ox O2 Delivery O2 Flow Rate FiO2 05/20/16 12:26 96 Nasal Cannula 2.00 05/20/16 12:00 98.6 62 18 137/65 96 05/20/16 08:15 Nasal Cannula 2.00 05/20/16 08:00 97.5 75 16 105/49 97 05/20/16 04:00 98.0 79 18 120/58 98 05/20/16 00:00 98.2 75 18 136/72 96 05/19/16 20:50 Nasal Cannula 2.00 05/19/16 20:26 93 05/19/16 20:09 65 05/19/16 20:00 98.0 64 18 158/70 99 05/19/16 16:00 98.2 52 16 168/70 94 I/O 05/19/16 05/19/16 05/19/16 05/20/16 05/20/16 05/20/16 07:00 15:00 23:00 07:00 15:00 23:00 Intake Total 240 ml 10 ml 570 ml 456 ml 610 ml Output Total 350 ml 450 ml 800 ml 200 ml Balance -110 ml -440 ml -230 ml 256 ml 610 ml Intake Oral 240 ml 10 ml 240 ml 120 ml IV Total 330 ml 336 ml 610 ml Output Urine Total 350 ml 450 ml 800 ml 200 ml # Bowel Movements 1 0 0 0 Result Diagram: 05/19/16 0606 05/18/16 0734 Objective Remarks GENERAL: demented patient, in no apparent distress. CARDIOVASCULAR: Regular rate and rhythm without murmurs, gallops, or rubs. RESPIRATORY: Clear to auscultation. Breath sounds equal bilaterally. No wheezes , rales, or rhonchi. GASTROINTESTINAL: Abdomen soft, non-tender, nondistended. Normal active bowel sounds MUSCULOSKELETAL: Left great toe nail is missing. Medially there is blistering of the skin with a serous drainage. Lateral left foot with an obvious pressure bruise. All appear to be improving NEURO: Alert & awake but confused about current events. Psych: Calm today. 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 This was thought to be a contaminant and patient was being monitored off antibiotics. Repeat blood cultures with preliminary 2/4 bottles growing gram pos. cocci. -Infectious disease following. Continue vancomycin. Repeat blood cultures pending. 2. Constipation: Previously had Diarrhea. stool softeners were held. Now constipated. H/O severe impaction. Continue Lactulose and monitor. 3Decubitus stage I ulcer: Repositioning every 2 hours hour; continue with current wound care 4Left foot ischemic lesions first and fifth MPJ area as well as left hallux stable eschar, status post left hallux nail avulsion: Appreciate input from podiatry, continue conservative treatment of offloading 5History of normochromic normocytic anemia: Chronic. Okay to transfuse for hemoglobin less than 8. Continue to monitor 6Hypocalcemia: Continue oral supplementation. 7Hypertension, hyperlipidemia, neuropathy: Continue outpatient medications 8History of CVA with left hemiplegia: Continue aspirin 9Chronic back pain: On Lyrica 10History of breast cancer:Dr. Hinds medical oncology advised supportive care and to attempt to correct current problems. Okay to transfuse for hemoglobin less than 8. 11- Dementia with behavioral disturbances: Continue low dose Seroquel and monitor. DW daughter regarding the expected course of the disease. DVT prophylaxis: Bilateral SCDs Discharge Planning Continue IV antibiotics per ID. Follow repeat blood cultures. Plan is to eventually DC with [facility] to daughter per her request. Problem Qualifiers (1) Stage 1 decubitus ulcer: Qualified Code: L89.151 - Decubitus ulcer of sacral region, stage 1 (2) Toe deformity: Qualified Code: M20.62 - Toe deformity, left Lady Gonzales MD May 20, 2016 15:33
[2016-05-20] MEDS: SODIUM CHLOR 0.9% 1000 ML INJ 1,000 ML IV SCH (16:48)
[2016-05-20] MEDS: ATORVASTATIN 40 MG TAB PO SCH (20:47)
[2016-05-21] VITALS (8 sets, daily range): BP systolic 142–165; BP diastolic 67–73; PULSE 66–79; RESP 16–20; TEMP 97.8–98.1; O2SAT 88–98
[2016-05-21 07:06] LABS: BICARBONATE 24.2 MEQ/L (21.0-32.0)
[2016-05-21 07:08] LABS: HEMATOCRIT 23.5 % (35.0-46.0); MEAN CELL VOLUME 87.4 FL (80.0-100.0); MEAN CORPUSCULAR HEMOGLOBIN 30.2 PG (27.0-34.0); MEAN CORPUSCULAR HGB CONC 34.5 % (32.0-36.0); PLATELET COUNT 177 TH/MM3 (150-450); RED BLOOD COUNT 2.69 MIL/MM3 (4.00-5.30); RED CELL DISTRIBUTION WIDTH 18.2 % (11.6-17.2); REVIEW FLAG FINAL; WHITE BLOOD COUNT 3.4 TH/MM3 (4.0-11.0)
[2016-05-21 07:17] LABS: POTASSIUM 2.9 MEQ/L (3.5-5.1)
[2016-05-21] MEDS: POTASSIUM CHLOR 20 MEQ PREMIX 100 ML IV SCH ×2 (08:26→11:34)
[2016-05-21] MEDS: PANTOPRAZOLE SOD 40 MG DELAYED RELEASE TAB PO SCH (08:27)
[2016-05-21] MEDS: METOPROLOL TARTRATE 50 MG TAB PO SCH (08:28)
[2016-05-21] MEDS: QUEtiapine FUMARATE 25 MG TAB PO SCH ×2 (08:28→21:00)
[2016-05-21] MEDS: ASPIRIN 325 MG TAB PO SCH (08:28)
[2016-05-21] MEDS: GENTAMICIN SULFATE 0.1% CREAM 15 GM TOP SCH (09:00)
[2016-05-21] MEDS ORDERED: PHARMACY ORDERED LAB XX ONE (11:45)
[2016-05-21] MEDS: VANCOMYCIN INJ 1,500 MG in SODIUM CHLORID 0.9% 500 ML INJ 500 ML IV SCH (12:36)
--- NOTE | 2016-05-21 12:50 | HHI.PR ---
Subjective Remarks Follow-up for bacteremia, left foot ischemic lesions, hypokalemia. Ms. Cortes is currently doing well. Denies any acute concerns. Denies any chest pain, shortness of breath, fever or chills. Objective Vitals Vital Signs Date Time Temp Pulse Resp B/P Pulse Ox O2 Delivery O2 Flow Rate FiO2 05/21/16 08:21 88 21 05/21/16 08:00 98.1 76 20 154/68 90 05/21/16 08:00 Nasal Cannula 2.00 05/21/16 08:00 79 05/21/16 04:00 97.8 70 16 142/70 96 05/21/16 01:57 98 Nasal Cannula 2.00 05/21/16 00:00 97.8 68 18 157/69 94 05/20/16 20:45 Nasal Cannula 2.00 05/20/16 20:00 98.3 67 16 143/64 96 05/20/16 20:00 75 05/20/16 17:42 98 Nasal Cannula 2.00 05/20/16 16:00 98.0 68 18 147/69 98 I/O 05/20/16 05/20/16 05/20/16 05/21/16 05/21/16 05/21/16 07:00 15:00 23:00 07:00 15:00 23:00 Intake Total 456 ml 610 ml Output Total 200 ml 225 ml 900 ml Balance 256 ml 610 ml -225 ml -900 ml Intake Oral 120 ml IV Total 336 ml 610 ml Output Urine Total 200 ml 225 ml 900 ml # Bowel Movements 0 0 Result Diagram: 05/21/167 05/21/16 0317 Imaging Last Impressions Shoulder X-Ray 05/19/16 0000 Signed Impressions: Service Date/Time: Thursday, May 19, 2016 13:36 - CONCLUSION: Healing proximal humeral fracture stable and unchanged Agapito Mcintosh MD Chest X-Ray 05/18/16 0600 Signed Impressions: Service Date/Time: April 05:03 - CONCLUSION: 1. Midinspiratory exam with crowding of the lung vasculature. The pulmonary arteries appear prominent with mild hazy opacity. 2. Probable left effusion. Aryan Briseno MD Foot X-Ray 05/14/16 0000 Signed Impressions: Service Date/Time: Saturday, May 14, 2016 18:13 - CONCLUSION: Chronic changes and no evidence for acute fracture. Rom Engle MD Objective Remarks GENERAL: Alert, NAD. SKIN: Warm and dry. HEAD: Normocephalic. EYES: No scleral icterus. No injection or drainage. NECK: Supple, trachea midline. No JVD or lymphadenopathy. CARDIOVASCULAR: Regular rate and rhythm without murmurs, gallops, or rubs. RESPIRATORY: Breath sounds equal bilaterally. No accessory muscle use. GASTROINTESTINAL: Abdomen soft, non-tender, nondistended. MUSCULOSKELETAL: No cyanosis, or edema. eschar lesions noted on the left foot. BACK: Nontender without obvious deformity. No CVA tenderness. Procedures None. 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 This was thought to be a contaminant and patient was being monitored off antibiotics. Repeat blood cultures with preliminary 2/4 bottles growing gram pos. cocci. -Infectious disease following. Continue vancomycin. Repeat blood cultures pending. - Hypokalemia - Hypomagnesemia - Will replace with IV KCL and IV Magnesium Sulfate. Constipation: Previously had Diarrhea. stool softeners were held. Now constipated. H/O severe impaction. Continue Lactulose and monitor. Decubitus stage I ulcer: Repositioning every 2 hours hour; continue with current wound care Left foot ischemic lesions first and fifth MPJ area as well as left hallux stable eschar, status post left hallux nail avulsion: Appreciate input from podiatry, continue conservative treatment of offloading History of normochromic normocytic anemia: Chronic. Will transfuse if Hgb < 7.0. Hypocalcemia: Continue oral supplementation. Hypertension, hyperlipidemia, neuropathy: Continue outpatient medications History of CVA with left hemiplegia: Continue aspirin Chronic back pain: On Lyrica History of breast cancer:Dr. Hinds medical oncology advised supportive care and to attempt to correct current problems. - Dementia with behavioral disturbances: Continue low dose Seroquel and monitor. DW daughter regarding the expected course of the disease. DVT prophylaxis: Bilateral SCDs Discharge Planning Continue IV antibiotics per ID. Follow repeat blood cultures. Plan is to eventually DC with [facility] to daughter per her request. Problem Qualifiers (1) Stage 1 decubitus ulcer: Qualified Code: L89.151 - Decubitus ulcer of sacral region, stage 1 (2) Toe deformity: Qualified Code: M20.62 - Toe deformity, left Jabier Arredondo DO May 21, 2016 12:50 Jabier Arredondo DO May 21, 2016 12:50 pm
[2016-05-21] MEDS: MAGNESIUM SULFATE 1 GM PREMIX 100 ML IV SCH ×2 (13:14→14:14)
[2016-05-21] MEDS: SODIUM CHLOR 0.9% 1000 ML INJ 1,000 ML IV SCH (15:05)
[2016-05-21] MEDS: ATORVASTATIN 40 MG TAB PO SCH (21:23)
[2016-05-22] VITALS (9 sets, daily range): BP systolic 154–162; BP diastolic 70–77; PULSE 61–81; RESP 18–20; TEMP 97.6–98.6; O2SAT 91–99
[2016-05-22 09:28] LABS: BICARBONATE 24.4 MEQ/L (21.0-32.0); MAGNESIUM 2.1 MG/DL (1.5-2.5); POTASSIUM 3.1 MEQ/L (3.5-5.1)
[2016-05-22 09:44] LABS: CALCIUM-PROTEIN CORRECTED 8.3 MG/DL (8.5-10.1)
[2016-05-22] MEDS: QUEtiapine FUMARATE 25 MG TAB PO SCH ×2 (09:47→21:00)
[2016-05-22] MEDS: METOPROLOL TARTRATE 50 MG TAB PO SCH (09:47)
[2016-05-22] MEDS: ASPIRIN 325 MG TAB PO SCH (09:48)
[2016-05-22] MEDS: PANTOPRAZOLE SOD 40 MG DELAYED RELEASE TAB PO SCH (09:48)
--- NOTE | 2016-05-22 10:07 | HHI.IDPN ---
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 Vital Signs Date Time Temp Pulse Resp B/P Pulse Ox O2 Delivery O2 Flow Rate FiO2 05/22/16 08:00 98.0 77 20 161/74 94 05/22/16 06:24 65 05/22/16 05:13 81 155/71 05/22/16 04:00 98.6 74 20 162/70 97 05/22/16 00:00 98.0 71 20 161/77 91 05/21/16 21:30 Nasal Cannula 2.00 05/21/16 20:00 98.0 68 20 153/67 90 05/21/16 16:00 97.9 67 20 155/70 92 05/21/16 12:00 97.8 66 20 165/73 91 05/21/16 05/21/16 05/22/16 14:59 22:59 06:59 Intake Total 480 ml 120 ml 100 ml Output Total 800 ml 775 ml 150 ml Balance -320 ml -655 ml -50 ml Intake Oral 480 ml 120 ml 100 ml Output Urine Total 800 ml 775 ml 150 ml # Bowel Movements 0 0 0 . Laboratory Tests Test 05/21/16 03:17 White Blood Count 3.4 TH/MM3 Red Blood Count 2.69 MIL/MM3 Hemoglobin 8.1 GM/DL Hematocrit 23.5 % Mean Corpuscular Volume 87.4 FL Mean Corpuscular Hemoglobin 30.2 PG Mean Corpuscular Hemoglobin 34.5 % Concent Red Cell Distribution Width 18.2 % Platelet Count 177 TH/MM3 Mean Platelet Volume 8.1 FL Laboratory Tests Test 05/21/16 05/22/16 03:17 08:19 Sodium Level 146 MEQ/L 141 MEQ/L Potassium Level 2.9 MEQ/L 3.1 MEQ/L Chloride Level 111 MEQ/L 108 MEQ/L Carbon Dioxide Level 24.2 MEQ/L 24.4 MEQ/L Anion Gap 11 MEQ/L 9 MEQ/L Blood Urea Nitrogen 4 MG/DL 4 MG/DL Creatinine 0.50 MG/DL 0.46 MG/DL Estimat Glomerular Filtration 117 ML/MIN 129 ML/MIN Rate Random Glucose 80 MG/DL 87 MG/DL Calcium Level 7.7 MG/DL 7.4 MG/DL Magnesium Level 1.6 MG/DL 2.1 MG/DL Protein Corrected Calcium 8.3 MG/DL Total Protein 5.5 GM/DL Imaging Chest X-Ray 05/18/16 0600 Signed Impressions: Service Date/Time: April 05:03 - CONCLUSION: 1. Midinspiratory exam with crowding of the lung vasculature. The pulmonary arteries appear prominent with mild hazy opacity. 2. Probable left effusion. Aryan Briseno MD Foot X-Ray 05/14/16 0000 Signed Impressions: Service Date/Time: Saturday, May 14, 2016 18:13 - CONCLUSION: Chronic changes and no evidence for acute fracture. Rom Engle MD Physical Exam GENERAL: awake and alert, NAD SKIN: Cool and dry. No generalized rash, no embolic lesions noted. HEENT: Pale conjunctivae, no petechia or hemorrhage. No scleral icterus. No injection or drainage. Moist oral mucosa. NECK: Trachea midline. No JVD or lymphadenopathy. Supple, nontender, no meningeal signs. CARDIOVASCULAR: Regular rate and rhythm without murmurs, gallops, or rubs. Soft heart sounds RESPIRATORY: Clear to auscultation. Breath sounds equal bilaterally. Decreased breath sounds at bases. GASTROINTESTINAL: Abdomen soft, nondistended, has mild tenderness. MUSCULOSKELETAL: Extremities without clubbing, cyanosis. No calf tenderness. L foot there is black eschar on the base of her big toe, medial aspect of her foot. Stable purplish discoloration of lateral foot and lateral aspect of her toes L foot. No erythema noted on her L foot, no lymphangitis. Well healed incision in her L wrist with no evidence of infection NEUROLOGICAL: NOn-focal LINE: PIV with no evidence of infection. No central line Assessment & Plan Remarks IMPRESSION Staph Coag Neg bacteremia, ?real, source? she has no line, ?contaminant Has black areas on her L big toe and purpuric areas on that foot, ?pressure Hx CVA with L sided weakness Mild pyuria, has urinary retention, terry placed 05/18 RECOMMENDATION Follow C/S Continue IV vancomycin Monitor progress If different Coag neg Staph, then she will not need any further Abx Wound care per podiatry D/W Annie Carrasquillo MD May 22, 2016 10:07
[2016-05-22] MEDS: VANCOMYCIN INJ 1,100 MG in SODIUM CHLOR 0.9% 250 ML INJ 250 ML IV SCH (12:18)
[2016-05-22] MEDS: GENTAMICIN SULFATE 0.1% CREAM 15 GM TOP SCH (12:19)
--- NOTE | 2016-05-22 12:27 | HHI.PR ---
Subjective Remarks Follow-up for possible bacteremia, left foot ischemic lesions, hypokalemia. Currently doing well, No acute concerns. Denies any CP, fever, chills. Objective Vitals Vital Signs Date Time Temp Pulse Resp B/P Pulse Ox O2 Delivery O2 Flow Rate FiO2 05/22/16 08:00 98.0 77 20 161/74 94 05/22/16 06:24 65 05/22/16 05:13 81 155/71 05/22/16 04:00 98.6 74 20 162/70 97 05/22/16 00:00 98.0 71 20 161/77 91 05/21/16 21:30 Nasal Cannula 2.00 05/21/16 20:00 98.0 68 20 153/67 90 05/21/16 16:00 97.9 67 20 155/70 92 I/O 05/21/16 05/21/16 05/21/16 05/22/16 05/22/16 05/22/16 07:00 15:00 23:00 07:00 15:00 23:00 Intake Total 480 ml 120 ml 100 ml Output Total 900 ml 800 ml 775 ml 150 ml Balance -900 ml -320 ml -655 ml -50 ml Intake Oral 480 ml 120 ml 100 ml Output Urine Total 900 ml 800 ml 775 ml 150 ml # Bowel Movements 0 0 0 0 Result Diagram: 05/21/16 0317 05/22/16 0819 Imaging Last Impressions Shoulder X-Ray 05/19/16 0000 Signed Impressions: Service Date/Time: Thursday, May 19, 2016 13:36 - CONCLUSION: Healing proximal humeral fracture stable and unchanged Agapito Mcintosh MD Chest X-Ray 05/18/16 0600 Signed Impressions: Service Date/Time: April 05:03 - CONCLUSION: 1. Midinspiratory exam with crowding of the lung vasculature. The pulmonary arteries appear prominent with mild hazy opacity. 2. Probable left effusion. Aryan Briseno MD Foot X-Ray 05/14/16 0000 Signed Impressions: Service Date/Time: Saturday, May 14, 2016 18:13 - CONCLUSION: Chronic changes and no evidence for acute fracture. Rom Enlge MD Objective Remarks GENERAL: Alert, NAD. SKIN: Warm and dry. HEAD: Normocephalic. EYES: No scleral icterus. No injection or drainage. NECK: Supple, trachea midline. No JVD or lymphadenopathy. CARDIOVASCULAR: Regular rate and rhythm without murmurs, gallops, or rubs. RESPIRATORY: Breath sounds equal bilaterally. No accessory muscle use. GASTROINTESTINAL: Abdomen soft, non-tender, nondistended. MUSCULOSKELETAL: No cyanosis, or edema. eschar lesions noted on the left foot. BACK: Nontender without obvious deformity. No CVA tenderness. Procedures None. 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 This was thought to be a contaminant and patient was being monitored off antibiotics. Repeat blood cultures with preliminary 2/4 bottles growing gram pos. cocci. -Infectious disease following. Continue vancomycin. Repeat blood culture results pending. Discussed with ID today. - Hypokalemia 2.9 --> 3.1 - Hypomagnesemia 1.6 --> 2.1 - Will replace with KCL. Constipation: Previously had Diarrhea. stool softeners were held. Now constipated. H/O severe impaction. Continue Lactulose and monitor. Decubitus stage I ulcer: Repositioning every 2 hours hour; continue with current wound care Left foot ischemic lesions first and fifth MPJ area as well as left hallux stable eschar, status post left hallux nail avulsion: Appreciate input from podiatry, continue conservative treatment of offloading History of normochromic normocytic anemia: Chronic. Will transfuse if Hgb < 7.0. Hypocalcemia: Continue oral supplementation. Hypertension, hyperlipidemia, neuropathy: Continue outpatient medications History of CVA with left hemiplegia: Continue aspirin Chronic back pain: On Lyrica History of breast cancer:Dr. Hinds medical oncology advised supportive care and to attempt to correct current problems. - Dementia with behavioral disturbances: Continue low dose Seroquel and monitor. DW daughter regarding the expected course of the disease. DVT prophylaxis: Bilateral SCDs Discharge Planning Continue IV antibiotics per ID. Follow repeat blood cultures. Plan is to eventually DC with [facility] to daughter per her request. Problem Qualifiers (1) Stage 1 decubitus ulcer: Qualified Code: L89.151 - Decubitus ulcer of sacral region, stage 1 (2) Toe deformity: Qualified Code: M20.62 - Toe deformity, left Jabier Arredondo DO May 22, 2016 12:27 pm
[2016-05-22] MEDS: POTASSIUM CHLORIDE 20 MEQ CONTROLLED RELEASE TAB PO SCH (21:07)
[2016-05-22] MEDS: ATORVASTATIN 40 MG TAB PO SCH (21:08)
[2016-05-23] VITALS (7 sets, daily range): BP systolic 144–147; BP diastolic 62–69; PULSE 67–79; RESP 16–20; TEMP 97.3–98.3; O2SAT 95–99
[2016-05-23] MEDS: GENTAMICIN SULFATE 0.1% CREAM 15 GM TOP SCH (09:00)
[2016-05-23] MEDS: PANTOPRAZOLE SOD 40 MG DELAYED RELEASE TAB PO SCH (09:25)
[2016-05-23] MEDS: QUEtiapine FUMARATE 25 MG TAB PO SCH ×2 (09:25→20:16)
[2016-05-23] MEDS: ASPIRIN 325 MG TAB PO SCH (09:25)
[2016-05-23] MEDS: METOPROLOL TARTRATE 50 MG TAB PO SCH (09:25)
[2016-05-23] MEDS: POTASSIUM CHLORIDE 20 MEQ CONTROLLED RELEASE TAB PO SCH (09:25)
--- NOTE | 2016-05-23 09:51 | HHI.PR ---
Subjective Remarks Follow up for bacteremia, hypokalemia. Ms. Cortes is doing well this AM. No acute concerns. She does not want to take PO KCL - cannot swallow those big pills. Requests IV KCL. Objective Vitals Vital Signs Date Time Temp Pulse Resp B/P Pulse Ox O2 Delivery O2 Flow Rate FiO2 05/23/16 08:00 98.3 73 20 147/69 99 05/23/16 06:41 69 05/23/16 04:00 98.0 79 18 145/67 95 05/22/16 21:30 Nasal Cannula 2.00 05/22/16 20:00 97.6 65 18 160/72 95 05/22/16 17:54 94 Nasal Cannula 2.00 05/22/16 16:00 98.0 64 20 161/74 97 05/22/16 12:00 97.9 61 20 154/70 99 05/22/16 10:38 2.00 I/O 05/22/16 05/22/16 05/22/16 05/23/16 05/23/16 05/23/16 07:00 15:00 23:00 07:00 15:00 23:00 Intake Total 100 ml 0 ml 240 ml 3029 ml Output Total 150 ml 500 ml 600 ml 400 ml Balance -50 ml -500 ml -360 ml 2629 ml Intake Oral 100 ml 0 ml 240 ml IV Total 3029 ml Output Urine Total 150 ml 500 ml 600 ml 400 ml # Bowel Movements 0 0 Result Diagram: 05/21/16 0317 05/22/16 0819 Imaging Last Impressions Shoulder X-Ray 05/19/16 0000 Signed Impressions: Service Date/Time: Thursday, May 19, 2016 13:36 - CONCLUSION: Healing proximal humeral fracture stable and unchanged Agapito Mcintosh MD Chest X-Ray 05/18/16 0600 Signed Impressions: Service Date/Time: April 05:03 - CONCLUSION: 1. Midinspiratory exam with crowding of the lung vasculature. The pulmonary arteries appear prominent with mild hazy opacity. 2. Probable left effusion. Aryan Briseno MD Foot X-Ray 05/14/16 0000 Signed Impressions: Service Date/Time: Saturday, May 14, 2016 18:13 - CONCLUSION: Chronic changes and no evidence for acute fracture. Rom Engle MD Objective Remarks GENERAL: Alert, NAD. SKIN: Warm and dry. HEAD: Normocephalic. EYES: No scleral icterus. No injection or drainage. NECK: Supple, trachea midline. No JVD or lymphadenopathy. CARDIOVASCULAR: Regular rate and rhythm without murmurs, gallops, or rubs. RESPIRATORY: Breath sounds equal bilaterally. No accessory muscle use. GASTROINTESTINAL: Abdomen soft, non-tender, nondistended. MUSCULOSKELETAL: No cyanosis, or edema. eschar lesions noted on the left foot. BACK: Nontender without obvious deformity. No CVA tenderness. Procedures None. 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 This was thought to be a contaminant and patient was being monitored off antibiotics. Repeat blood cultures with preliminary 2/4 bottles growing gram pos. cocci. -Infectious disease following. Continue vancomycin. Repeat blood culture results pending. - once ID provides final recommendations, patient can be discharged. - Hypokalemia 2.9 --> 3.1 - Hypomagnesemia 1.6 --> 2.1 - Will replace with KCL IV. Constipation: Previously had Diarrhea. stool softeners were held. Now constipated. H/O severe impaction. Continue Lactulose and monitor. Decubitus stage I ulcer: Repositioning every 2 hours hour; continue with current wound care Left foot ischemic lesions first and fifth MPJ area as well as left hallux stable eschar, status post left hallux nail avulsion: Appreciate input from podiatry, continue conservative treatment of offloading History of normochromic normocytic anemia: Chronic. Will transfuse if Hgb < 7.0. Hypocalcemia: Continue oral supplementation. Hypertension, hyperlipidemia, neuropathy: Continue outpatient medications History of CVA with left hemiplegia: Continue aspirin Chronic back pain: On Lyrica History of breast cancer:Dr. Hinds medical oncology advised supportive care and to attempt to correct current problems. - Dementia with behavioral disturbances: Continue low dose Seroquel and monitor. DW daughter regarding the expected course of the disease. DVT prophylaxis: Bilateral SCDs Discharge Planning Continue IV antibiotics per ID. Follow repeat blood cultures. Plan is to eventually DC with [facility] to daughter per her request. Problem Qualifiers (1) Stage 1 decubitus ulcer: Qualified Code: L89.151 - Decubitus ulcer of sacral region, stage 1 (2) Toe deformity: Qualified Code: M20.62 - Toe deformity, left Jabier Arredondo DO May 23, 2016 9:51 am
[2016-05-23] MEDS: POTASSIUM CHLOR 20 MEQ PREMIX 100 ML IV SCH ×2 (10:00→17:00)
[2016-05-23] MEDS: VANCOMYCIN INJ 1,100 MG in SODIUM CHLOR 0.9% 250 ML INJ 250 ML IV SCH ×2 (12:00→18:00)
--- NOTE | 2016-05-23 13:24 | HHI.IDPN ---
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 Vital Signs Date Time Temp Pulse Resp B/P Pulse Ox O2 Delivery O2 Flow Rate FiO2 05/23/16 08:00 98.3 73 20 147/69 99 05/23/16 06:41 69 05/23/16 04:00 98.0 79 18 145/67 95 05/22/16 21:30 Nasal Cannula 2.00 05/22/16 20:00 97.6 65 18 160/72 95 05/22/16 17:54 94 Nasal Cannula 2.00 05/22/16 16:00 98.0 64 20 161/74 97 05/22/16 05/22/16 05/23/16 14:59 22:59 06:59 Intake Total 0 ml 240 ml 3029 ml Output Total 500 ml 600 ml 400 ml Balance -500 ml -360 ml 2629 ml Intake Oral 0 ml 240 ml IV Total 3029 ml Output Urine Total 500 ml 600 ml 400 ml # Bowel Movements 0 . Laboratory Tests Test 05/22/16 08:19 Sodium Level 141 MEQ/L Potassium Level 3.1 MEQ/L Chloride Level 108 MEQ/L Carbon Dioxide Level 24.4 MEQ/L Anion Gap 9 MEQ/L Blood Urea Nitrogen 4 MG/DL Creatinine 0.46 MG/DL Estimat Glomerular Filtration 129 ML/MIN Rate Random Glucose 87 MG/DL Calcium Level 7.4 MG/DL Protein Corrected Calcium 8.3 MG/DL Magnesium Level 2.1 MG/DL Total Protein 5.5 GM/DL Imaging Chest X-Ray 05/18/16 0600 Signed Impressions: Service Date/Time: April 05:03 - CONCLUSION: 1. Midinspiratory exam with crowding of the lung vasculature. The pulmonary arteries appear prominent with mild hazy opacity. 2. Probable left effusion. Aryan Briseno MD Foot X-Ray 05/14/16 0000 Signed Impressions: Service Date/Time: Saturday, May 14, 2016 18:13 - CONCLUSION: Chronic changes and no evidence for acute fracture. Rom Engle MD Physical Exam GENERAL: awake and alert, NAD SKIN: Cool and dry. No generalized rash, no embolic lesions noted. HEENT: Pale conjunctivae, no petechia or hemorrhage. No scleral icterus. No injection or drainage. Moist oral mucosa. NECK: Trachea midline. No JVD or lymphadenopathy. Supple, nontender, no meningeal signs. CARDIOVASCULAR: Regular rate and rhythm without murmurs, gallops, or rubs. Soft heart sounds RESPIRATORY: Clear to auscultation. Breath sounds equal bilaterally. Decreased breath sounds at bases. GASTROINTESTINAL: Abdomen soft, nondistended, has mild tenderness. MUSCULOSKELETAL: Extremities without clubbing, cyanosis. No calf tenderness. L foot there is black eschar on the base of her big toe, medial aspect of her foot. Stable purplish discoloration of lateral foot and lateral aspect of her toes L foot. No erythema noted on her L foot, no lymphangitis. Well healed incision in her L wrist with no evidence of infection NEUROLOGICAL: NOn-focal LINE: PIV with no evidence of infection. No central line Assessment & Plan Remarks IMPRESSION Staph Coag Neg bacteremia, C/W contaminant Has black areas on her L big toe and purpuric areas on that foot, ?pressure Hx CVA with L sided weakness Mild pyuria, has urinary retention, terry placed 05/18 RECOMMENDATION Stop IV vancomycin Wound care per podiatry Should be ok to D/C from ID standpoint D/W Annie Stewart MD May 23, 2016 13:24
--- NOTE | 2016-05-23 15:10 | HHI.FF ---
Face to Face Verification Diagnosis: (1) Hypokalemia (2) Decubitus ulcer (3) Bacteremia (4) Ischemic pain of left foot Physical Therapy Order: Evaluate and Treat, Improve ambulation, Strength and gait training Home Health Nursing Order: Medical education Signs/symptoms of disease process Medication education-adverse effect Wound care and dressing changes Nursing assessment with vital signs Home Health Aide Order: To Assist In: Bathing and personal care, product architect and meal prep I have seen patient Raiza Cortes on 05/23/16. My clinical findings support the need for the requested home health care services because: Ltd mobility - disease progression Patient has SOB Deconditioned w/ increased weakness Limited ability to care for self Need for psychosocial assistance High risk of falls Infection w/ risk of complications I certify that my clinical findings support that this patient is homebound because: Unsteady gait/balance Unsafe to leave home unassisted Need for psychosocial assistance Unable to use public transportation Jabier Arredondo DO May 23, 2016 3:10 pm
--- NOTE | 2016-05-23 15:21 | HHI.DS ---
Discharge Summary Admission Date May 14, 2016 at 7:25 pm Discharge Date: May 23, 2016 Admitting Diagnosis (1) Hypokalemia ICD Code: E87.6 Diagnosis: Principal (2) Stage 1 decubitus ulcer ICD Code: L89.91 Diagnosis: Principal (3) Toe deformity ICD Code: M20.60 (4) Bacteremia ICD Code: R78.81 Diagnosis: Principal Procedures None. CBC/BMP: 05/21/16 0317 05/22/16 0819 Significant Findings Laboratory Tests Test 05/21/16 05/21/16 05/22/16 03:17 11:45 08:19 White Blood Count 3.4 TH/MM3 (4.0-11.0) Red Blood Count 2.69 MIL/MM3 (4.00-5.30) Hemoglobin 8.1 GM/DL (11.6-15.3) Hematocrit 23.5 % (35.0-46.0) Red Cell Distribution Width 18.2 % (11.6-17.2) Sodium Level 146 MEQ/L (136-145) Potassium Level 2.9 MEQ/L 3.1 MEQ/L (3.5-5.1) (3.5-5.1) Chloride Level 111 MEQ/L 108 MEQ/L (98-107) (98-107) Blood Urea Nitrogen 4 MG/DL (7-18) 4 MG/DL (7-18) Calcium Level 7.7 MG/DL 7.4 MG/DL (8.5-10.1) (8.5-10.1) Vancomycin Level Trough 21.1 MCG/ML (5.0-10.0) Creatinine 0.46 MG/DL (0.50-1.00) Protein Corrected Calcium 8.3 MG/DL (8.5-10.1) Total Protein 5.5 GM/DL (6.4-8.2) Imaging Last Impressions Shoulder X-Ray 05/19/16 0000 Signed Impressions: Service Date/Time: Thursday, May 19, 2016 13:36 - CONCLUSION: Healing proximal humeral fracture stable and unchanged Agapito Mcintosh MD Chest X-Ray 05/18/16 0600 Signed Impressions: Service Date/Time: April 05:03 - CONCLUSION: 1. Midinspiratory exam with crowding of the lung vasculature. The pulmonary arteries appear prominent with mild hazy opacity. 2. Probable left effusion. Aryan Briseno MD Foot X-Ray 05/14/16 0000 Signed Impressions: Service Date/Time: Saturday, May 14, 2016 18:13 - CONCLUSION: Chronic changes and no evidence for acute fracture. Rom Engle MD PE at Discharge GENERAL: Alert, NAD. SKIN: Warm and dry. HEAD: Normocephalic. EYES: No scleral icterus. No injection or drainage. NECK: Supple, trachea midline. No JVD or lymphadenopathy. CARDIOVASCULAR: Regular rate and rhythm without murmurs, gallops, or rubs. RESPIRATORY: Breath sounds equal bilaterally. No accessory muscle use. GASTROINTESTINAL: Abdomen soft, non-tender, nondistended. MUSCULOSKELETAL: No cyanosis, or edema. eschar lesions noted on the left foot. BACK: Nontender without obvious deformity. No CVA tenderness. Pt update on day of discharge Ms. Cortes is doing well. Denies any CP, SOB, fever, chills. Requests IV KCL instead of PO. Hospital Course Bacteremia; first blood cultures grew 1/4 coag negative staph. This was thought to be a contaminant and patient was being monitored off antibiotics. Repeat blood cultures with preliminary 2/4 bottles growing gram pos. cocci. -Infectious disease following. Continue vancomycin. ID recommended to discontinue Vancomycin. No further Abx. - Hypokalemia 2.9 --> 3.1 - Hypomagnesemia 1.6 --> 2.1 - Will replace with KCL IV today 05/23/2016. Constipation: Previously had Diarrhea. stool softeners were held. Now constipated. H/O severe impaction. Continue Lactulose and monitor. Decubitus stage I ulcer: Repositioning every 2 hours hour; continue with current wound care Left foot ischemic lesions first and fifth MPJ area as well as left hallux stable eschar, status post left hallux nail avulsion: Appreciate input from podiatry, continue conservative treatment of offloading History of normochromic normocytic anemia: Chronic. Will transfuse if Hgb < 7.0. Hypocalcemia: Continue oral supplementation. Hypertension, hyperlipidemia, neuropathy: Continue outpatient medications History of CVA with left hemiplegia: Continue aspirin Chronic back pain: On Lyrica History of breast cancer:Dr. Hinds medical oncology advised supportive care and to attempt to correct current problems. - Dementia with behavioral disturbances: Continue low dose Seroquel and monitor. DW daughter regarding the expected course of the disease. DVT prophylaxis: Bilateral SCDs Discharge Planning DC with HHC to daughter per her request. Pt Condition on Discharge: Good Discharge Disposition: Disch w/ Home Health Serv Discharge Time: > 30 minutes Discharge Instructions DIET: Follow Instructions for: As Tolerated, No Restrictions Activities you can perform: Regular-No Restrictions Follow up Referrals: PCP Follow-up - 1 Week Podiatry - 1 Week with Alireza Bob DPM Continued Medications: Acetaminophen (Tylenol) 325 Mg Cap 325 MG PO Q8HR PRN PAIN Ref 0 CAP Amlodipine (Amlodipine) 10 Mg Tab 10 MG PO DAILY Blood Pressure Management #30 Ref 0 TAB Aspirin (Aspirin) 325 Mg Tab 325 MG PO DAILY #30 Ref 0 TAB Atorvastatin (Atorvastatin) 40 Mg Tab 40 MG PO HS Cholesterol Management #30 Ref 0 TAB Bisacodyl Supp (Bisacodyl Supp) 10 Mg Supp 10 MG RECTAL DAILY PRN CONSTIPATION Ref 0 SUPP Calcium Carbonate (Calcium Carbonate) 500 Mg Chew 500 MG CHEW BID 500 mg calcium carbonate (200 mg elemental calcium) Calcium Supplement Ref 0 TAB Cholecalciferol (Vitamin D-3) 1,000 Unit Tab 1000 UNITS PO DAILY #30 Ref 0 TAB Clonidine (Clonidine) 0.2 Mg Tab 0.2 MG PO Q6HR PRN SBP>160, DBP>90 #60 Ref 0 TAB Docusate Sodium (Docusate Sodium) 100 Mg Cap 100 MG PO BID Prevent Constipation #60 Ref 0 CAP Magnesium Citrate (Magnesium Citrate) 100 Mg Tab 100 MG PO DAILY PRN CONSTIPATION Ref 0 TAB Magnesium Hydroxide Liq (Milk of Magnesia Liq) 400 Mg/5 Ml Susp 30 ML PO DAILY PRN CONSTIPATION #1 Ref 0 BOTTLE Metoprolol Tartrate (Metoprolol Tartrate) 50 Mg Tab 50 MG PO DAILY #30 Ref 0 TAB Pantoprazole (Protonix) 40 Mg Tab 40 MG PO DAILY Reflux #30 Ref 0 TAB Pregabalin (Lyrica) 50 Mg Cap 50 MG PO BID PRN PAIN SCALE 1 TO 7 #60 Ref 0 CAP Tramadol (Tramadol) 50 Mg Tab 50 MG PO Q6H PRN PAIN Ref 0 TAB Jabier Arredondo DO May 23, 2016 15:21
[2016-05-23] MEDS: ATORVASTATIN 40 MG TAB PO SCH (20:16)
--- NOTE | 2016-05-23 22:12 | PD.POD ---
Subjective Podiatric Problems Patient seen at bedside this am in NAD. Nursing staff present. Pain score: 2 Past Med/Surg/Social History Social History Smoking Status: Never Smoker Objective Vital Signs Vital Signs Date Time Temp Pulse Resp B/P Pulse Ox O2 Delivery O2 Flow Rate FiO2 05/23/16 21:25 95 Room Air 05/23/16 20:59 Room Air 05/23/16 20:22 Nasal Cannula 2.00 05/23/16 20:00 98.3 71 16 144/67 96 05/23/16 16:00 98.2 73 20 146/62 99 05/23/16 13:38 98 2.00 05/23/16 12:00 97.3 67 20 146/66 99 05/23/16 08:00 98.3 73 20 147/69 99 05/23/16 08:00 99 Nasal Cannula 2.00 05/23/16 06:41 69 05/23/16 04:00 98.0 79 18 145/67 95 Coded Allergies: Heparin (Verified Adverse Reaction, Severe, 05/14/16) CAUSED THROMBOSIS Other Results Laboratory Tests Test 05/19/16 05/21/16 05/21/16 05/22/16 06:06 03:17 11:45 08:19 Neutrophils (%) (Auto) 36.3 % Lymphocytes (%) (Auto) 50.1 % Monocytes (%) (Auto) 8.6 % Eosinophils (%) (Auto) 4.2 % Basophils (%) (Auto) 0.8 % Neutrophils # (Auto) 1.0 TH/MM3 Lymphocytes # (Auto) 1.4 TH/MM3 Monocytes # (Auto) 0.2 TH/MM3 Eosinophils # (Auto) 0.1 TH/MM3 Basophils # (Auto) 0.0 TH/MM3 CBC Comment DIFF FINAL Differential Comment White Blood Count 3.4 TH/MM3 Red Blood Count 2.69 MIL/MM3 Hemoglobin 8.1 GM/DL Hematocrit 23.5 % Mean Corpuscular Volume 87.4 FL Mean Corpuscular Hemoglobin 30.2 PG Mean Corpuscular Hemoglobin 34.5 % Concent Red Cell Distribution Width 18.2 % Platelet Count 177 TH/MM3 Mean Platelet Volume 8.1 FL Vancomycin Level Trough 21.1 MCG/ML Sodium Level 141 MEQ/L Potassium Level 3.1 MEQ/L Chloride Level 108 MEQ/L Carbon Dioxide Level 24.4 MEQ/L Anion Gap 9 MEQ/L Blood Urea Nitrogen 4 MG/DL Creatinine 0.46 MG/DL Estimat Glomerular Filtration 129 ML/MIN Rate Random Glucose 87 MG/DL Calcium Level 7.4 MG/DL Protein Corrected Calcium 8.3 MG/DL Magnesium Level 2.1 MG/DL Total Protein 5.5 GM/DL Exam-Podiatry Dermatological Exam Ulcers: Location/Measurements LLE 1st ray with absent nail plate. No active drainage. Non palpable pulses at the DP and PT and CFT delayed. Dry stable eschar, no active drainage , no streaking. Assessment & Plan Diagnosis: (1) Ischemic pain of left foot Status: Chronic A/P Continue with daily dressing changes left foot. No further intervention per Podiatry. Nicole Schmitt DPM May 23, 2016 22:12
[2016-05-24 00:10] VITALS: BP 161/75; PULSE 73; RESP 18; TEMP 98.4; O2SAT 94
[2016-05-24 04:00] VITALS: BP 159/68; PULSE 81; RESP 16; TEMP 98.5; O2SAT 94
[2016-05-24] MEDS: PANTOPRAZOLE SOD 40 MG DELAYED RELEASE TAB PO SCH (07:59)
[2016-05-24] MEDS: QUEtiapine FUMARATE 25 MG TAB PO SCH (07:59)
[2016-05-24 08:00] VITALS: BP 144/76; PULSE 83; RESP 20; TEMP 98.2; O2SAT 95
[2016-05-24] MEDS: METOPROLOL TARTRATE 50 MG TAB PO SCH (08:00)
[2016-05-24] MEDS: ASPIRIN 325 MG TAB PO SCH (08:00)
[2016-05-24 10:22] VITALS: O2SAT 92
--- NOTE | 2016-05-24 11:37 | HHI.PR ---
Subjective Remarks Follow-up bacteremia/hypokalemia 05/24/16-patient seen and examined, early this morning she had episode of oxygen desaturation but patient denies any chest pain or shortness of breath. No other issues overnight Objective Vitals Vital Signs Date Time Temp Pulse Resp B/P Pulse Ox O2 Delivery O2 Flow Rate FiO2 05/24/16 08:00 98.2 83 20 144/76 95 05/24/16 04:00 98.5 81 16 159/68 94 05/24/16 00:10 98.4 73 18 161/75 94 05/23/16 21:25 95 Room Air 05/23/16 20:59 Room Air 05/23/16 20:22 Nasal Cannula 2.00 05/23/16 20:00 98.3 71 16 144/67 96 05/23/16 16:00 98.2 73 20 146/62 99 05/23/16 13:38 98 2.00 05/23/16 12:00 97.3 67 20 146/66 99 I/O 05/23/16 05/23/16 05/23/16 05/24/16 05/24/16 05/24/16 07:00 15:00 23:00 07:00 15:00 23:00 Intake Total 3029 ml 0 ml Output Total 400 ml 750 ml 1400 ml Balance 2629 ml -750 ml -1400 ml Intake Oral 0 ml IV Total 3029 ml Output Urine Total 400 ml 750 ml 1400 ml # Bowel Movements 2 1 Result Diagram: 05/21/16 0317 05/24/16 0450 Imaging Last Impressions Shoulder X-Ray 05/19/16 0000 Signed Impressions: Service Date/Time: Thursday, May 19, 2016 13:36 - CONCLUSION: Healing proximal humeral fracture stable and unchanged Agapito Mcintosh MD Chest X-Ray 05/18/16 0600 Signed Impressions: Service Date/Time: April 05:03 - CONCLUSION: 1. Midinspiratory exam with crowding of the lung vasculature. The pulmonary arteries appear prominent with mild hazy opacity. 2. Probable left effusion. Aryan Briseno MD Foot X-Ray 05/14/16 0000 Signed Impressions: Service Date/Time: Saturday, May 14, 2016 18:13 - CONCLUSION: Chronic changes and no evidence for acute fracture. Rom Engle MD Objective Remarks GENERAL: No acute distress SKIN: Warm and dry. Left discolored great toe-neurovascular intact HEAD: Normocephalic. EYES: No scleral icterus. No injection or drainage. NECK: Supple, trachea midline. No JVD or lymphadenopathy. CARDIOVASCULAR: Regular rate and rhythm without murmurs, gallops, or rubs. RESPIRATORY: Breath sounds equal bilaterally. No accessory muscle use. GASTROINTESTINAL: Abdomen soft, non-tender, nondistended. MUSCULOSKELETAL: No cyanosis, or edema. Left hemiplegia BACK: Nontender without obvious deformity. No CVA tenderness. Procedures None. A/P Problem List: (1) Bacteremia ICD Code: R78.81 Status: Acute (2) Hypokalemia ICD Code: E87.6 Status: Acute (3) Stage 1 decubitus ulcer ICD Code: L89.91 Status: Acute (4) Toe deformity ICD Code: M20.60 Status: Chronic (5) Ischemic pain of left foot ICD Code: M79.672 Status: Chronic (6) Constipation ICD Code: K59.00 Status: Chronic (7) Hypertension ICD Code: I10 Status: Chronic Assessment and Plan 85-year-old female with Bacteremia; first blood cultures grew 1/4 coag negative staph. This was thought to be a contaminant and patient was being monitored off antibiotics. Repeat blood cultures with preliminary 2/4 bottles growing gram pos. cocci. -Infectious disease following. Continue vancomycin. Repeat blood culture results negative 5 days. - Hypokalemia 2.9 --> 3.1 - Hypomagnesemia this electronic to monitor Constipation: Previously had Diarrhea. stool softeners were held. Now constipated. H/O severe impaction. Continue Lactulose and monitor. Decubitus stage I ulcer: Repositioning every 2 hours hour; continue with current wound care Left foot ischemic lesions first and fifth MPJ area as well as left hallux stable eschar, status post left hallux nail avulsion: Appreciate input from podiatry, continue conservative treatment of offloading History of normochromic normocytic anemia: Chronic. Hypocalcemia: Continue oral supplementation. Hypertension, hyperlipidemia, neuropathy: Continue outpatient medications History of CVA with left hemiplegia: Continue aspirin Chronic back pain: On Lyrica History of breast cancer:Dr. Hinds medical oncology advised supportive care and to attempt to correct current problems. - Dementia with behavioral disturbances: Continue low dose Seroquel and monitor. DVT prophylaxis: Bilateral SCDs Discharge Planning Discharge home with [facility] Problem Qualifiers (1) Stage 1 decubitus ulcer: Qualified Code: L89.151 - Decubitus ulcer of sacral region, stage 1 (2) Toe deformity: Qualified Code: M20.62 - Toe deformity, left Adrien Cruz MD May 24, 2016 11:37
--- NOTE | 2016-05-24 11:38 | HHI.DS ---
Discharge Summary Admission Date May 14, 2016 at 19:25 Discharge Date: May 24, 2016 Admitting Diagnosis (1) Bacteremia ICD Code: R78.81 (2) Hypokalemia ICD Code: E87.6 (3) Stage 1 decubitus ulcer ICD Code: L89.91 (4) Toe deformity ICD Code: M20.60 (5) Ischemic pain of left foot ICD Code: M79.672 (6) Constipation ICD Code: K59.00 (7) Hypertension ICD Code: I10 Procedures None. Brief History - From Admission This is a 85 year olf female here with her daughter. The daughter provides much of the history. The daughter has not been pleased with the care her mother has received at her nursing facility. She complains that her mom would sit for hours at a time in wet diapers and that they stopped physical therapy because her Medicare would not cover it anymore. Additionally, 3 weeks ago she complains that a nurse accidentally partially removed the left great toenail when lifting the patient out of bed. A office technician was consulted secondary to the toe "turning black." And he proceeded to remove the toenail. Reportedly, her office technician at that facility wanted an x-ray and culture of the foot. Last night, her daughter reports the patient had a fever (subjectively) because she felt hot and was sweating. Additionally yesterday her cough started. Nonproductive. She occasionally gets into coughing fits. It is this cough and subjective fever which brought the patient to the emergency room. She is also concerned that the skin on her bottom is breaking down. CBC/BMP: 05/21/16 0317 05/24/16 0450 Significant Findings Laboratory Tests Test 05/21/16 05/22/16 11:45 08:19 Vancomycin Level Trough 21.1 MCG/ML (5.0-10.0) Potassium Level 3.1 MEQ/L (3.5-5.1) Chloride Level 108 MEQ/L (98-107) Blood Urea Nitrogen 4 MG/DL (7-18) Creatinine 0.46 MG/DL (0.50-1.00) Calcium Level 7.4 MG/DL (8.5-10.1) Protein Corrected Calcium 8.3 MG/DL (8.5-10.1) Total Protein 5.5 GM/DL (6.4-8.2) PE at Discharge GENERAL: Alert, NAD. SKIN: Warm and dry. HEAD: Normocephalic. EYES: No scleral icterus. No injection or drainage. NECK: Supple, trachea midline. No JVD or lymphadenopathy. CARDIOVASCULAR: Regular rate and rhythm without murmurs, gallops, or rubs. RESPIRATORY: Breath sounds equal bilaterally. No accessory muscle use. GASTROINTESTINAL: Abdomen soft, non-tender, nondistended. MUSCULOSKELETAL: No cyanosis, or edema. eschar lesions noted on the left foot. BACK: Nontender without obvious deformity. No CVA tenderness. Hospital Course Patient admitted secondary to electrolyte abnormalities including hypokalemia secondary to diarrheal episode which resolved with replacement. Hospitalization stay was complicated by bacteremia for which infectious disease specialist was consulted and patient started on IV antibiotics with monitoring of cultures, which were negative prior to discharge. He also had multiple electrolyte abnormalities which were corrected accordingly. Podiatry was consulted secondary to Left foot ischemic lesions first and fifth MPJ area as well as left hallux eschar, status post left hallux nail avulsion and she was managed conservatively. She was found to have stage I decubitus ulcer or which wound care nurse was consulted and patient underwent repositioning every [address] Cleaning was consulted secondary to patient history of Breast cancer as well as anemia of iron deficiency, but no transfusion was given an H&H was monitored. Patient was continued on her treatment for other chronic medical conditions. DVT and GI prophylaxis were provided. PT was consulted Pt Condition on Discharge: Good Discharge Disposition: Disch w/ Home Health Serv Discharge Time: > 30 minutes Discharge Instructions DIET: Follow Instructions for: As Tolerated, No Restrictions Activities you can perform: Regular-No Restrictions Follow up Referrals: PCP Follow-up - 1 Week Podiatry - 1 Week with Alireza Bob DPM SNF/[facility]/ with [facility] New Orders: BASIC METABOLIC PROF - 3-5 Days New Medications: Quetiapine (Quetiapine) 25 Mg Tab 12.5 MG PO BID Control Anxiety #60 TAB Continued Medications: Acetaminophen (Tylenol) 325 Mg Cap 325 MG PO Q8HR PRN PAIN Ref 0 CAP Amlodipine (Amlodipine) 10 Mg Tab 10 MG PO DAILY Blood Pressure Management #30 Ref 0 TAB Aspirin (Aspirin) 325 Mg Tab 325 MG PO DAILY #30 Ref 0 TAB Atorvastatin (Atorvastatin) 40 Mg Tab 40 MG PO HS Cholesterol Management #30 Ref 0 TAB Bisacodyl Supp (Bisacodyl Supp) 10 Mg Supp 10 MG RECTAL DAILY PRN CONSTIPATION Ref 0 SUPP Calcium Carbonate (Calcium Carbonate) 500 Mg Chew 500 MG CHEW BID 500 mg calcium carbonate (200 mg elemental calcium) Calcium Supplement Ref 0 TAB Cholecalciferol (Vitamin D-3) 1,000 Unit Tab 1000 UNITS PO DAILY #30 Ref 0 TAB Clonidine (Clonidine) 0.2 Mg Tab 0.2 MG PO Q6HR PRN SBP>160, DBP>90 #60 Ref 0 TAB Docusate Sodium (Docusate Sodium) 100 Mg Cap 100 MG PO BID Prevent Constipation #60 Ref 0 CAP Magnesium Citrate (Magnesium Citrate) 100 Mg Tab 100 MG PO DAILY PRN CONSTIPATION Ref 0 TAB Magnesium Hydroxide Liq (Milk of Magnesia Liq) 400 Mg/5 Ml Susp 30 ML PO DAILY PRN CONSTIPATION #1 Ref 0 BOTTLE Metoprolol Tartrate (Metoprolol Tartrate) 50 Mg Tab 50 MG PO DAILY #30 Ref 0 TAB Pantoprazole (Protonix) 40 Mg Tab 40 MG PO DAILY Reflux #30 Ref 0 TAB Pregabalin (Lyrica) 50 Mg Cap 50 MG PO BID PRN PAIN SCALE 1 TO 7 #60 Ref 0 CAP Tramadol (Tramadol) 50 Mg Tab 50 MG PO Q6H PRN PAIN Ref 0 TAB Adrien Cruz MD May 24, 2016 11:38
[2016-05-24] MEDS ORDERED: PHARMACY ORDERED LAB XX ONE (11:45)
[2016-05-24 12:00] VITALS: BP 137/61; PULSE 70; RESP 20; TEMP 98.3; O2SAT 94
[2016-05-24] MEDS ORDERED: QUET1TAB7 PO (16:22)
[2016-05-24] MEDS ORDERED: VANCOMYCIN INJ 1,100 MG in SODIUM CHLOR 0.9% 250 ML INJ 250 ML IV SCH (18:00)
== END 2016-05-24 16:55 | disposition home health service (06) | DRG 641 ==
LOC: NEPE 16:32 → NEDA 19:25 → N04A 05-15 01:02
PROVIDERS: ADMIT Hospitalist; ATTEND Hospitalist
PROC: 0T9B70Z Drainage of Bladder with Drainage Device, Via Natural or Artificial Opening (ICD-10-PCS; principal; 2016-05-18)
DX: E87.6 Hypokalemia (principal); L89.151 Pressure ulcer of sacral region, stage 1; R78.81 Bacteremia; F03.91 Unspecified dementia, unspecified severity, with behavioral disturbance; I69.354 Hemiplegia and hemiparesis following cerebral infarction affecting left non-dominant side; N39.0 Urinary tract infection, site not specified; G62.9 Polyneuropathy, unspecified; K21.9 Gastro-esophageal reflux disease without esophagitis; I10 Essential (primary) hypertension; K52.9 Noninfective gastroenteritis and colitis, unspecified; I44.0 Atrioventricular block, first degree; E78.5 Hyperlipidemia, unspecified; D63.8 Anemia in other chronic diseases classified elsewhere; D50.9 Iron deficiency anemia, unspecified; E83.51 Hypocalcemia; K59.00 Constipation, unspecified; R33.9 Retention of urine, unspecified; E83.42 Hypomagnesemia; I45.81 Long QT syndrome; M19.90 Unspecified osteoarthritis, unspecified site; M81.0 Age-related osteoporosis without current pathological fracture; Z85.038 Personal history of other malignant neoplasm of large intestine; Z85.3 Personal history of malignant neoplasm of breast; Z88.8 Allergy status to other drugs, medicaments and biological substances; Z90.11 Acquired absence of right breast and nipple; Z92.21 Personal history of antineoplastic chemotherapy
CPT/HCPCS: 71010; 73030; 73630; 76937; 80048; 80053; 80202; 81001; 82565; 82805; 83540; 83550; 83605; 83735; 84100; 84132; 84155; 85025; 85027; 85610; 85730; 86403; 87040; 87070; 87077; 87086; 87186; 87205; 87804; 93005; 93306; 94150; 96365; 96375; J0696; J3370; J3475; J3480; J7030; J7040; J7050; P9612

== ENCOUNTER 2016-06-12 07:07 | Inpatient (IN) | payer MEDICARE ==
[~2016-06-12] VITALS: Ht 167.6 cm; Wt 64.0 kg
[2016-06-12] VITALS (7 sets, daily range): BP systolic 147–162; BP diastolic 67–90; PULSE 67–91; RESP 16–20; TEMP 96.8–98.7; O2SAT 94–98
[~2016-06-12 07:07] MED LIST changes: +ACET1CAP18 PO; -AMLO10 PO; +AMLO10TA2 PO; +ASPI325T PO; +ATOR40TA16 PO; -ATOR40TA49 PO; -BISA10R PR; +BISA10SU3 RECTAL; -CALC500 PO; +CALC500C6 CHEW; -CHOL1TAB6 PO; -CLON.2 PO; +CLON0.2T PO; -COLA100C PO; -COUM2.5T PO; -COUM5TAB PO; -CYAN1000P IM; +DOCU100C PO; -IRON325T2 PO; -LACT20SO4 PO; -LIDO2GEL12 TOP; +LYRI50CA PO; +MAGN100T2 PO; -MAGN30S PO; -MAPA325T6 PO; -METO50CR PO; +METO50TA PO; +MILKSUS PO; -PREG75 PO; +QUET1TAB7 PO; +TRAM50TA PO; +VITA10003 PO
--- NOTE | 2016-06-12 07:38 | PD ---
HPI Chief Complaint: GI Complaint Time Seen by Provider: 07:24 Travel History International Travel<30 days: No Contact w/Intl Traveler<30days: No Traveled to known affect area: No History of Present Illness HPI 85-year-old female with history of CVA, severe constipation and stool impaction , presents to the ER today because her daughter states that she has been constipated for several days and they have tried rectal suppositories but she is not making much of a bowel movement. Last bowel movement was several days ago of heart stools. Her daughter states that she has overflow small amount of liquid stool and is incontinent, and because of that her perirectal area has been very abraded. She has been complaining of rectal pain. There has not been any vomiting, fevers, or other issues. Otherwise, she has noticed that the left foot has areas of dark discoloration which and just wants it to be checked out. Apparently patient has been following up with Dr. Caraballo for this issue. Modifying Factors: None Associated Signs & Symptoms: Rectal pain, constipation, left foot wound check Risk Factors: None PFSH Past Medical History Hx Anticoagulant Therapy: Yes (ASA) Arthritis: Yes Asthma: No Autoimmune Disease: No Anxiety: No Depression: No Heart Rhythm Problems: No Cancer: Yes (Colon, Right breast) Cardiovascular Problems: Yes High Cholesterol: Yes Chemotherapy: Yes (ORAL) Chest Pain: No Congestive Heart Failure: No COPD: No Cerebrovascular Accident: Yes Diabetes: No Diminished Hearing: No Endocrine: No Gastrointestinal Disorders: Yes (Colon cancer) GERD: Yes Genitourinary: No Hepatitis: No Hiatal Hernia: Yes Hypertension: Yes Immune Disorder: No Implanted Vascular Access Dvce: Yes Kidney Stones: No Medical other: Yes (GERD) Musculoskeletal: Yes Neurologic: Yes (Stroke 7., NEUROPATHY) Psychiatric: No Reproductive: No Respiratory: No Migraines: No Radiation Therapy: No Renal Failure: No Seizures: No Sickle Cell Disease: No Sleep Apnea: No Thyroid Disease: No Ulcer: No Menopausal: Yes : 6 Para: 5 Miscarriage: 1 Past Surgical History Abdominal Surgery: Yes (BOWEL RESECTION, AHMET.) AICD: No Appendectomy: Yes Arteriovenous Shunt: No Body Medical Devices: Left wrist Cardiac Surgery: No Section: No Cholecystectomy: Yes Ear Surgery: No Endocrine Surgery: No Eye Surgery: Yes (BILATERAL CATARACT REMOVAL ) Genitourinary Surgery: No Gynecologic Surgery: Yes (RIGHT MASTECTOMY,) Insulin Pump: No Joint Replacement: Yes (LEFT WRIST METAL ) Oral Surgery: No Pacemaker: No Thoracic Surgery: Yes Other Surgery: Yes (Gallbladder, Right Masectomy, Left wrist) Social History Alcohol Use: No Tobacco Use: No Substance Use: No Allergies-Medications (Allergen,Severity, Reaction): Coded Allergies: Heparin (Verified Adverse Reaction, Severe, 05/14/16) CAUSED THROMBOSIS Reported Meds & Prescriptions Reported Meds & Active Scripts Active Quetiapine (Quetiapine Fumarate) 25 Mg Tab 12.5 Mg PO BID Reported Protonix (Pantoprazole Sodium) 40 Mg Tab 40 Mg PO DAILY Lyrica (Pregabalin) 50 Mg Cap 50 Mg PO BID PRN Metoprolol Tartrate 50 Mg Tab 50 Mg PO DAILY Magnesium Citrate 100 Mg Tab 100 Mg PO DAILY PRN Docusate Sodium 100 Mg Cap 100 Mg PO BID Clonidine (Clonidine HCl) 0.2 Mg Tab 0.2 Mg PO Q6HR PRN Bisacodyl Supp (Bisacodyl) 10 Mg Supp 10 Mg RECTAL DAILY PRN Atorvastatin (Atorvastatin Calcium) 40 Mg Tab 40 Mg PO HS Aspirin 325 Mg Tab 325 Mg PO DAILY Amlodipine (Amlodipine Besylate) 10 Mg Tab 10 Mg PO DAILY Review of Systems Except as stated in HPI: all other systems reviewed are Neg Physical Exam Narrative GENERAL: Well-nourished, well-developed elderly white female patient in no acute distress at rest. Awake, alert. SKIN: Warm and dry. HEAD: Normocephalic. EYES: No scleral icterus. No injection or drainage. NECK: Supple, trachea midline. CARDIOVASCULAR: Regular rate and rhythm without murmurs, gallops, or rubs. RESPIRATORY: Breath sounds equal bilaterally. No accessory muscle use. GASTROINTESTINAL: Abdomen soft, non-tender, nondistended. RECTAL EXAM: No masses or tenderness, stool is brown, large stool bolus noted in the vault. MUSCULOSKELETAL: No cyanosis, or edema. BACK: Nontender without obvious deformity. No CVA tenderness. Data Data Last Documented VS Vital Signs Date Time Temp Pulse Resp B/P Pulse Ox O2 Delivery O2 Flow Rate FiO2 06/12/16 10:00 77 16 149/70 94 Room Air 06/12/16 07:10 98.7 Orders Abdomen, Flat & Upright (06/12/16 07:18) Complete Blood Count With Diff (06/12/16 07:24) Comprehensive Metabolic Panel (06/12/16 07:24) Prothrombin Time / Inr (Pt) (06/12/16 07:24) Act Partial Throm Time (Ptt) (06/12/16 07:24) Foot, Complete ([id number]) (06/12/16 07:24) Urinalysis - C+S If Indicated (06/12/16 07:50) Cath For Specimen (06/12/16 07:50) Potassium Chloride Eff (K-Lyte Cl Eff) (06/12/16 08:45) Arterial Segmt Dopp Ltd Qi (06/12/16 ) Blood Culture (06/12/16 10:03) Piperacil-Tazo 4.5 Gm Premix (Zosyn 4.5 (06/12/16 10:03) Admit Order (Ed Use Only) (06/12/16 10:20) Labs Laboratory Tests Test 06/12/16 06/12/16 07:56 08:02 White Blood Count 7.3 TH/MM3 Red Blood Count 3.24 MIL/MM3 Hemoglobin 10.2 GM/DL Hematocrit 30.3 % Mean Corpuscular Volume 93.4 FL Mean Corpuscular Hemoglobin 31.6 PG Mean Corpuscular Hemoglobin 33.9 % Concent Red Cell Distribution Width 19.4 % Platelet Count 464 TH/MM3 Mean Platelet Volume 7.8 FL Neutrophils (%) (Auto) 74.1 % Lymphocytes (%) (Auto) 17.2 % Monocytes (%) (Auto) 6.6 % Eosinophils (%) (Auto) 0.9 % Basophils (%) (Auto) 1.2 % Neutrophils # (Auto) 5.4 TH/MM3 Lymphocytes # (Auto) 1.2 TH/MM3 Monocytes # (Auto) 0.5 TH/MM3 Eosinophils # (Auto) 0.1 TH/MM3 Basophils # (Auto) 0.1 TH/MM3 CBC Comment DIFF FINAL Differential Comment Prothrombin Time 10.6 SEC Prothromb Time International 1.0 RATIO Ratio Activated Partial 26.5 SEC Thromboplast Time Sodium Level 137 MEQ/L Potassium Level 3.1 MEQ/L Chloride Level 101 MEQ/L Carbon Dioxide Level 27.0 MEQ/L Anion Gap 9 MEQ/L Blood Urea Nitrogen 16 MG/DL Creatinine 0.73 MG/DL Estimat Glomerular Filtration 76 ML/MIN Rate Random Glucose 160 MG/DL Calcium Level 9.3 MG/DL Total Bilirubin 0.4 MG/DL Aspartate Amino Transf 18 U/L (AST/SGOT) Alanine Aminotransferase 14 U/L (ALT/SGPT) Alkaline Phosphatase 96 U/L Total Protein 7.3 GM/DL Albumin 2.3 GM/DL Urine Color YELLOW Urine Turbidity CLEAR Urine pH 5.0 Urine Specific [place] 1.009 Urine Protein NEG mg/dL Urine Glucose (UA) NEG mg/dL Urine Ketones NEG mg/dL Urine Occult Blood NEG Urine Nitrite NEG Urine Bilirubin NEG Urine Urobilinogen LESS THAN 2.0 MG/DL Urine Leukocyte Esterase SMALL Urine RBC LESS THAN 1 /hpf Urine WBC 7 /hpf Urine WBC Clumps RARE Urine Bacteria OCC /hpf Urine Mucus FEW /lpf Microscopic Urinalysis Comment CULT NOT INDICATED MDM Medical Decision Making Medical Screen Exam Complete: Yes Emergency Medical Condition: Yes Medical Record Reviewed: Yes Interpretation(s) Laboratory Tests Test 06/12/16 06/12/16 07:56 08:02 Red Blood Count 3.24 MIL/MM3 (4.00-5.30) Hemoglobin 10.2 GM/DL (11.6-15.3) Hematocrit 30.3 % (35.0-46.0) Red Cell Distribution Width 19.4 % (11.6-17.2) Platelet Count 464 TH/MM3 (150-450) Neutrophils (%) (Auto) 74.1 % (16.0-70.0) Potassium Level 3.1 MEQ/L (3.5-5.1) Estimat Glomerular Filtration 76 ML/MIN (>89) Rate Random Glucose 160 MG/DL (74-106) Albumin 2.3 GM/DL (3.4-5.0) Urine Leukocyte Esterase SMALL (NEG) Urine WBC 7 /hpf (0-5) Urine WBC Clumps RARE (NONE) Urine Bacteria OCC /hpf (NONE) Urine Mucus FEW /lpf (OCC) Last 24 hours Impressions Foot X-Ray 06/12/16723 Signed Impressions: Service Date/Time: Sunday, June 12, 2016 07:44 - CONCLUSION: Soft tissue swelling otherwise negative. Moderate digital artery calcifications are noted. Jayce Romero MD FACR Abdomen X-Ray 06/12/16717 Signed Impressions: Service Date/Time: Sunday, June 12, 2016 07:38 - CONCLUSION: Minimal colonic gas with moderate stool throughout the colon. Jayce Romero MD FACR Differential Diagnosis Constipation, rectal pain, left foot wound checkrule out obstruction versus constipation, chronic foot ulcers versus acute cellulitis Narrative Course Patient has a large stool bolus within the vault. She is not obstructed. I have tried to manually disimpact her but she is not tolerant of the disimpaction. Patient's foot does not appear to be infected. However, I do not feel good pulses. And at this point, ABIs were ordered for the patient. I have discussed the findings with Dr. Bob who states that the patient should be admitted for further evaluation of her foot. However, he notes that she has history of chronic severe peripheral vascular disease and that considering her health history, she may not be a good candidate for aggressive treatment. Foot does not appear to be cold or cyanotic. At this point, I suspect that this is more likely to be chronic. Considering need for workup, my plan would be to admit the patient for further evaluation and treatment. Case is discussed with Dr. Jones for admission. In addition, patient has a UTI and IV antibiotic 's were also initiated for UTI after cultures are done. Procedures Procedure Narrative Stool disimpaction: A rectal exam was done on the patient which shows a large stool bolus within the vault. I have attempted to digitally disimpact her but the patient is not tolerant of the disimpaction. Diagnosis Primary Impression: Ischemic pain of left foot Additional Impressions: UTI (urinary tract infection) Hypokalemia Constipation Admitting Information Admitting Physician Requests: Admit Sylvia Shelby MD Jun 12, 2016 07:38
--- NOTE | 2016-06-12 07:55 | RADRPT ---
EXAM DATE/TIME: 06/12/2016 07:38 [facility] COMPARISON: No previous studies available for comparison. INDICATIONS : Distention. MEDICAL HISTORY : None. SURGICAL HISTORY : None. ENCOUNTER: Initial ACUITY: 1 day PAIN SCORE: 0/10 LOCATION: Bilateral abdomen FINDINGS: There is no free air. Moderate stool is seen throughout the colon. There is no significant dilatati on. The portion of the bony skeleton visualized is unremarkable. CONCLUSION: Minimal colonic gas with moderate stool throughout the colon. Jayce Romero MD FACR on June 12, 2016 at 7:52 Board Certified Radiologist. This report was verified electronically.
--- NOTE | 2016-06-12 07:56 | RADRPT ---
EXAM DATE/TIME: 06/12/2016 07:44 [facility] COMPARISON: FOOT LEFT COMPLETE ([id number]), May 14, 2016, 18:13. INDICATIONS : Left foot pain. MEDICAL HISTORY : None. SURGICAL HISTORY : None. ENCOUNTER: Initial ACUITY: 1 day PAIN SCORE: 1/10 LOCATION: Left dorsal foot, first digit FINDINGS: The bones are osteopenic. Alignment is anatomic. There is some soft tissue swelling about the great toe without fracture. CONCLUSION: Soft tissue swelling otherwise negative. Moderate digital artery calcifications are noted. Jayce Romero MD FACR on June 12, 2016 at 7:53 Board Certified Radiologist. This report was verified electronically.
[2016-06-12 08:19] LABS: AUTOMATED NEUTROPHIL # 5.4 TH/MM3 (1.8-7.7); BASOPHIL # 0.1 TH/MM3 (0-0.2); BASOPHIL % 1.2 % (0.0-2.0); EOSINOPHIL # 0.1 TH/MM3 (0-0.4); EOSINOPHIL % 0.9 % (0.0-4.0); HEMATOCRIT 30.3 % (35.0-46.0); HEMO FLAGS DIFF FINAL; LYMPH % 17.2 % (9.0-44.0); LYMPHOCYTE # 1.2 TH/MM3 (1.0-4.8); MEAN CELL VOLUME 93.4 FL (80.0-100.0); MEAN CORPUSCULAR HEMOGLOBIN 31.6 PG (27.0-34.0); MEAN CORPUSCULAR HGB CONC 33.9 % (32.0-36.0); MONO % 6.6 % (0.0-8.0); NEUT % 74.1 % (16.0-70.0); PLATELET COUNT 464 TH/MM3 (150-450); RED BLOOD COUNT 3.24 MIL/MM3 (4.00-5.30); RED CELL DISTRIBUTION WIDTH 19.4 % (11.6-17.2); WHITE BLOOD COUNT 7.3 TH/MM3 (4.0-11.0)
[2016-06-12 08:19] LABS: BACTERIA, URINE OCC /hpf; BLOOD, URINE NEG (NEG); GLUCOSE,URINE NEG (NEG); KETONE, URINE NEG (NEG); MUCUS URINE FEW /lpf (OCC); NITRITE,URINE NEG (NEG); URINE COLOR YELLOW (YELLW/STRAW)
[2016-06-12 08:25] LABS: APTT (PATIENT) 26.5 SEC (24.3-30.1); PROTHROMBIN TIME - PATIENT 10.6 SEC (9.8-11.6)
[2016-06-12 08:33] LABS: ALT (GPT) 14 U/L (10-53); ANION GAP 9 MEQ/L (5-15); AST (GOT) 18 U/L (15-37); BLOOD UREA NITROGEN 16 MG/DL (7-18); CHLORIDE 101 MEQ/L (98-107); GLOMERULAR FILTRATION RATE 76 ML/MIN (>89); POTASSIUM 3.1 MEQ/L (3.5-5.1); SODIUM (NA) 137 MEQ/L (136-145)
[2016-06-12 08:36] LABS: ALKALINE PHOSPHATASE 96 U/L (45-117); TOTAL BILIRUBIN ADULT 0.4 MG/DL (0.2-1.0)
[2016-06-12] MEDS ORDERED: POTASSIUM CHLORIDE 25 MEQ EFFERVESCENT TAB PO ONE (08:45)
[2016-06-12] MEDS ORDERED: PIPERACIL-TAZO 4.5 GM PREMIX 100 ML IV STA (10:03)
[2016-06-12 12:46] LABS: CULTURE IF INDICATED CULTURE INDICATED
[2016-06-12 12:47] LABS: COMMENT (UR) CULTURE INDICATED
--- NOTE | 2016-06-12 15:16 | RADRPT ---
EXAM DATE/TIME: 06/12/2016 00:00 [facility] COMPARISON: No previous studies available for comparison. INDICATIONS : Peripheral vascular disease TECHNIQUE: Four-cuff ankle and brachial pressures were obtained. Pulse cuff waveform tracings of the ankles were recorded, and ankle-brachial indices were calculated. PRESSURES (mmHg): Brachial (arm): Left 153 Ankle: Right 99 Left 61 ISAEL: Right 0.65 Left 0.40 TBI: Right 0.42 PULSED CUFF WAVEFORMS: Decreased peak amplitude and delayed upstroke. CONCLUSION: Significant reduction of the ABIs bilaterally more pronounced on the left. Jose Antonio Jo Jr., MD on June 12, 2016 at 15:13 Board Certified Radiologist. This report was verified electronically.
[2016-06-12] MEDS ORDERED: MAGNESIUM CITRATE SOLN 300 ML BTL PO ONE (17:00)
[2016-06-12] MEDS ORDERED: PREGABALIN 25 MG CAP PO PRN (17:00)
[2016-06-12] MEDS ORDERED: cloNIDine HCL 0.2 MG TAB PO PRN (17:00)
[2016-06-12] MEDS ORDERED: BISACODYL 10 MG SUPP RECTAL PRN (17:00)
--- NOTE | 2016-06-12 17:10 | HHI.HP ---
HPI Service [facility] Hospitalists Primary Care Physician Lucinda Randhawa MD Admission Diagnosis stool impaction/left foot PVD Chief Complaint: constipation Travel History International Travel<30 Days: No Contact w/Intl Traveler <30 Da: No Traveled to Known Affected Are: No History of Present Illness Ms. Cortes is an 85 y/o WF with hx cva, chronic pain, pad,presents again with constipation. In ED pt was noted to have alot of stool on rectal exam and manual disimpaction attempted. kub confirmed large amt of stool in colon. no obstruction. She has chronic pad left foot and ED notified her mobile engineer who will reevaluate her foot during admission. 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, although no proof of heparin exposure exogenously in 11/2015 CAD with AMI in 11/2015 Iron deficiency anemia Bilateral humerus fx's and left wrist fx along with scalp/forehead wound after a fall in 11/2015 HTN Hyperlipidemia Hx of breast cancer in 2010 Hx of colon cancer GERD I Past Surgical History Left distal radius fracture ORIF on 11/30/15 Cholecystectomy Partial colectomy in Right mastectomy with sentinel node biopsy Appendectomy Cataract surgery Reported Medications Quetiapine (Quetiapine Fumarate) 25 Mg Tab 12.5 Mg PO BID Tramadol (Tramadol HCl) 50 Mg Tab 50 Mg PO Q6H PRN Protonix (Pantoprazole Sodium) 40 Mg Tab 40 Mg PO DAILY Lyrica (Pregabalin) 50 Mg Cap 50 Mg PO BID PRN Metoprolol Tartrate 50 Mg Tab 50 Mg PO DAILY Magnesium Citrate 100 Mg Tab 100 Mg PO DAILY PRN Docusate Sodium 100 Mg Cap 100 Mg PO BID Clonidine (Clonidine HCl) 0.2 Mg Tab 0.2 Mg PO Q6HR PRN Bisacodyl Supp (Bisacodyl) 10 Mg Supp 10 Mg RECTAL DAILY PRN Atorvastatin (Atorvastatin Calcium) 40 Mg Tab 40 Mg PO HS Aspirin 325 Mg Tab 325 Mg PO DAILY Amlodipine (Amlodipine Besylate) 10 Mg Tab 10 Mg PO DAILY Allergies: Coded Allergies: Heparin (Verified Adverse Reaction, Severe, 05/14/16) CAUSED THROMBOSIS Family History Noncontributory Social History Denies any alcohol, tobacco or illicit drug use Physical Exam Vital Signs nad heart reg lung cta abd s/nt/nabs Vital Signs Date Time Temp Pulse Resp B/P Pulse Ox O2 Delivery O2 Flow Rate FiO2 06/12/16 16:08 96.8 91 18 162/78 97 06/12/16 14:52 91 18 158/90 95 Room Air 06/12/16 13:11 89 20 151/80 96 Room Air 06/12/16 11:44 20 06/12/16 11:44 82 20 161/71 95 Room Air 06/12/16 10:00 77 16 149/70 94 Room Air 06/12/16 07:10 98.7 80 16 150/67 95 Laboratory Laboratory Tests Test 06/12/16 06/12/16 07:56 08:02 White Blood Count 7.3 Red Blood Count 3.24 Hemoglobin 10.2 Hematocrit 30.3 Mean Corpuscular Volume 93.4 Mean Corpuscular Hemoglobin 31.6 Mean Corpuscular Hemoglobin 33.9 Concent Red Cell Distribution Width 19.4 Platelet Count 464 Mean Platelet Volume 7.8 Neutrophils (%) (Auto) 74.1 Lymphocytes (%) (Auto) 17.2 Monocytes (%) (Auto) 6.6 Eosinophils (%) (Auto) 0.9 Basophils (%) (Auto) 1.2 Neutrophils # (Auto) 5.4 Lymphocytes # (Auto) 1.2 Monocytes # (Auto) 0.5 Eosinophils # (Auto) 0.1 Basophils # (Auto) 0.1 CBC Comment DIFF FINAL Differential Comment Prothrombin Time 10.6 Prothromb Time International 1.0 Ratio Activated Partial 26.5 Thromboplast Time Sodium Level 137 Potassium Level 3.1 Chloride Level 101 Carbon Dioxide Level 27.0 Anion Gap 9 Blood Urea Nitrogen 16 Creatinine 0.73 Estimat Glomerular Filtration 76 Rate Random Glucose 160 Calcium Level 9.3 Total Bilirubin 0.4 Aspartate Amino Transf 18 (AST/SGOT) Alanine Aminotransferase 14 (ALT/SGPT) Alkaline Phosphatase 96 Total Protein 7.3 Albumin 2.3 Urine Color YELLOW Urine Turbidity CLEAR Urine pH 5.0 Urine Specific [place] 1.009 Urine Protein NEG Urine Glucose (UA) NEG Urine Ketones NEG Urine Occult Blood NEG Urine Nitrite NEG Urine Bilirubin NEG Urine Urobilinogen LESS THAN 2.0 Urine Leukocyte Esterase SMALL Urine RBC LESS THAN 1 Urine WBC 7 Urine WBC Clumps RARE Urine Bacteria OCC Urine Mucus FEW Microscopic Urinalysis Comment CULTURE INDICATED Date/Time Procedure Status Source Growth 06/12/16 10:17 Aerobic Blood Culture Received Blood Peripheral Pending 06/12/16 10:17 Anaerobic Blood Culture Received Blood Peripheral Pending 06/12/16 08:02 Urine Culture Received Urine Clean Catch Pending Result Diagram: 06/12/16 0756 06/12/16 0756 Imaging Last Impressions Foot X-Ray 06/12/16 0724 Signed Impressions: Service Date/Time: Sunday, June 12, 2016 07:44 - CONCLUSION: Soft tissue swelling otherwise negative. Moderate digital artery calcifications are noted. Jayce Romero MD FACR Abdomen X-Ray 06/12/16 0718 Signed Impressions: Service Date/Time: Sunday, June 12, 2016 07:38 - CONCLUSION: Minimal colonic gas with moderate stool throughout the colon. Jayce Romero MD FACR Septic Shock Reassessment Heart: Regular rate and rhythm Lungs: Clear Skin: Warm Assessment and Plan Problem List: (1) Constipation Status: Acute Plan: Pt presents with constipation/impaction. she has hx rectal fissure. she has left foot pad cont scheduled laxatives PT dvt prophylaxis ED spoke to her mobile engineer to re-evaluate her left foot pad replace kcl (2) Anal fissure Status: Acute Plan: see above (3) Hypokalemia Status: Acute Plan: see above (4) PAD (peripheral artery disease) Status: Acute Plan: see above (5) CVA (cerebral vascular accident) Status: Chronic (6) HTN (hypertension) Status: Chronic Plan: home meds Estrella Membreno Jun 12, 2016 17:10 Sha Jones MD Jun 12, 2016 22:21
[2016-06-12] MEDS ORDERED: PILL SPLITTER OTHER PRN (17:15)
[2016-06-12] MEDS: SOD PHOSPHATE/SOD BIPHOSPHATE (ADULT) ENEMA 133ML PR SCH ×2 (17:37→22:00)
[2016-06-12] MEDS: LIDOCAINE 2% JELLY 5 ML TUBE TOPICAL SCH ×2 (17:37→21:14)
[2016-06-12] MEDS: DOCUSATE SODIUM 100 MG CAP PO SCH (21:12)
[2016-06-12] MEDS: traMADol HCL 50 MG TAB PO PRN (21:12)
[2016-06-12] MEDS: QUEtiapine FUMARATE 25 MG TAB PO SCH (21:12)
[2016-06-12] MEDS: ATORVASTATIN 40 MG TAB PO SCH (21:12)
[2016-06-13 00:16] VITALS: BP 133/67; PULSE 62; RESP 20; TEMP 96.9; O2SAT 93
[2016-06-13 04:25] VITALS: BP 120/58; PULSE 89; RESP 20; TEMP 97.7; O2SAT 94
[2016-06-13] MEDS: SOD PHOSPHATE/SOD BIPHOSPHATE (ADULT) ENEMA 133ML PR SCH ×4 (04:45→22:24)
[2016-06-13 06:55] LABS: BICARBONATE 31.1 MEQ/L (21.0-32.0); MAGNESIUM 2.1 MG/DL (1.5-2.5); POTASSIUM 3.5 MEQ/L (3.5-5.1)
--- NOTE | 2016-06-13 07:53 | PD.CONS ---
History of Present Illness Service Podiatry Consult Requested By ED Reason for Consult Necrotic ulcer L foot Primary Care Physician Lucinda Randhawa MD Diagnoses: History of Present Illness Ms Cortes presents with stool impaction and has history of stable ulceration to foot, requesting reevaluation while in-house. 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, although no proof of heparin exposure exogenously in 11/2015 CAD with AMI in 11/2015 Iron deficiency anemia Bilateral humerus fx's and left wrist fx along with scalp/forehead wound after a fall in 11/2015 HTN Hyperlipidemia Hx of breast cancer in 2010 Hx of colon cancer GERD Past Surgical History Left distal radius fracture ORIF on 11/30/15 Cholecystectomy Partial colectomy in Right mastectomy with sentinel node biopsy Appendectomy Cataract surgery Active Ordered Medications Current Medications Medications (Trade) Dose Ordered Sig/Eduard Route Start Time Stop Time Status Last Admin (Xylocaine 2% Jelly) 1 applic QID TOPICAL 06/12/16 18:00 06/12/16 21:14 (Fleets Enema (Adult)) 133 ml Q8HR TX 06/12/16 18:00 06/12/16 17:37 (Norvasc) 10 mg DAILY PO 06/13/16 09:00 (Aspirin) 325 mg DAILY PO 06/13/16 09:00 (Lipitor) 40 mg HS PO 06/12/16 21:00 06/12/16 21:12 (Dulcolax Supp) 10 mg DAILY PRN RECTAL 06/12/16 17:00 (Catapres) 0.2 mg Q6HR PRN PO 06/12/16 17:00 (Colace) 100 mg BID PO 06/12/16 21:00 06/12/16 21:12 (Lopressor) 50 mg DAILY PO 06/13/16 09:00 (Protonix) 40 mg DAILY PO 06/13/16 09:00 (Lyrica) 50 mg BID PRN PO 06/12/16 17:00 (SEROquel) 12.5 mg BID PO 06/12/16 21:00 06/12/16 21:12 (Ultram) 50 mg Q6H PRN PO 06/12/16 17:00 06/12/16 21:12 (Pill Splitter) 1 ea UNSCH PRN OTHER 06/12/16 17:15 Physical Exam Vital Signs Vital Signs Date Time Temp Pulse Resp B/P Pulse Ox O2 Delivery O2 Flow Rate FiO2 06/13/16 04:44 20 06/13/16 04:25 97.7 89 20 120/58 94 06/13/16 00:16 96.9 62 20 133/67 93 06/12/16 20:49 98.0 67 18 147/78 98 06/12/16 16:08 96.8 91 18 162/78 97 06/12/16 14:52 91 18 158/90 95 Room Air 06/12/16 13:11 89 20 151/80 96 Room Air 06/12/16 11:44 20 06/12/16 11:44 82 20 161/71 95 Room Air 06/12/16 10:00 77 16 149/70 94 Room Air Physical Exam L foot with dorsomedial necrotic tissue over 1st MTP joint area and 5th digit. No erythema or edema present. Nonpalpable pulses. Thin, atrophic skin. Not ambulatory Laboratory Laboratory Tests Test 06/12/16 06/12/16 06/13/16 07:56 08:02 06:05 White Blood Count 7.3 Red Blood Count 3.24 Hemoglobin 10.2 Hematocrit 30.3 Mean Corpuscular Volume 93.4 Mean Corpuscular Hemoglobin 31.6 Mean Corpuscular Hemoglobin 33.9 Concent Red Cell Distribution Width 19.4 Platelet Count 464 Mean Platelet Volume 7.8 Neutrophils (%) (Auto) 74.1 Lymphocytes (%) (Auto) 17.2 Monocytes (%) (Auto) 6.6 Eosinophils (%) (Auto) 0.9 Basophils (%) (Auto) 1.2 Neutrophils # (Auto) 5.4 Lymphocytes # (Auto) 1.2 Monocytes # (Auto) 0.5 Eosinophils # (Auto) 0.1 Basophils # (Auto) 0.1 CBC Comment DIFF FINAL Differential Comment Prothrombin Time 10.6 Prothromb Time International 1.0 Ratio Activated Partial 26.5 Thromboplast Time Sodium Level 137 140 Potassium Level 3.1 3.5 Chloride Level 101 101 Carbon Dioxide Level 27.0 31.1 Anion Gap 9 8 Blood Urea Nitrogen 16 12 Creatinine 0.73 0.58 Estimat Glomerular Filtration 76 99 Rate Random Glucose 160 98 Calcium Level 9.3 8.9 Total Bilirubin 0.4 Aspartate Amino Transf 18 (AST/SGOT) Alanine Aminotransferase 14 (ALT/SGPT) Alkaline Phosphatase 96 Total Protein 7.3 Albumin 2.3 Urine Color YELLOW Urine Turbidity CLEAR Urine pH 5.0 Urine Specific [place] 1.009 Urine Protein NEG Urine Glucose (UA) NEG Urine Ketones NEG Urine Occult Blood NEG Urine Nitrite NEG Urine Bilirubin NEG Urine Urobilinogen LESS THAN 2.0 Urine Leukocyte Esterase SMALL Urine RBC LESS THAN 1 Urine WBC 7 Urine WBC Clumps RARE Urine Bacteria OCC Urine Mucus FEW Microscopic Urinalysis Comment CULTURE INDICATED Magnesium Level 2.1 Date/Time Procedure Status Source Growth 06/12/16 10:17 Aerobic Blood Culture Received Blood Peripheral Pending 06/12/16 10:17 Anaerobic Blood Culture Received Blood Peripheral Pending 06/12/16 08:02 Urine Culture Received Urine Clean Catch Pending Result Diagram: 06/12/16 0756 06/13/16 0605 Imaging Last Impressions Foot X-Ray 06/12/16 0724 Signed Impressions: Service Date/Time: Sunday, June 12, 2016 07:44 - CONCLUSION: Soft tissue swelling otherwise negative. Moderate digital artery calcifications are noted. Jayce Romero MD FACR Abdomen X-Ray 06/12/16 0718 Signed Impressions: Service Date/Time: Sunday, June 12, 2016 07:38 - CONCLUSION: Minimal colonic gas with moderate stool throughout the colon. Jayce Romero MD FACR Assessment and Plan Assessment and Plan L foot ulcer, stable Recommend continued betadine wet to dry dressings to maintain stability of wound. If infection occurs with redness, swelling, drainage, will require amputation based on vascular surgery recommendations. Recommend against surgery at this time. Podiatry signing off. Reconsult if new issues arise Arielle Hanley DPM Jun 13, 2016 07:53
[2016-06-13 08:00] VITALS: BP 153/65; PULSE 87; RESP 18; TEMP 97.3; O2SAT 93
[2016-06-13] MEDS: ASPIRIN 325 MG TAB PO SCH (09:43)
[2016-06-13] MEDS: DOCUSATE SODIUM 100 MG CAP PO SCH ×2 (09:43→22:22)
[2016-06-13] MEDS: PANTOPRAZOLE SOD 40 MG DELAYED RELEASE TAB PO SCH (09:43)
[2016-06-13] MEDS: METOPROLOL TARTRATE 50 MG TAB PO SCH (09:43)
[2016-06-13] MEDS: QUEtiapine FUMARATE 25 MG TAB PO SCH ×2 (09:43→22:22)
[2016-06-13] MEDS: LIDOCAINE 2% JELLY 5 ML TUBE TOPICAL SCH ×5 (09:44→22:24)
--- NOTE | 2016-06-13 12:15 | HHI.PR ---
Subjective Remarks Pt had multiple BMs last night. Denies any further rectal pain. Pt denies any dysuria or hematuria Objective Vitals Vital Signs Date Time Temp Pulse Resp B/P Pulse Ox O2 Delivery O2 Flow Rate FiO2 06/13/16 08:00 97.3 87 18 153/65 93 06/13/16 04:44 20 06/13/16 04:25 97.7 89 20 120/58 94 06/13/16 00:16 96.9 62 20 133/67 93 06/12/16 20:49 98.0 67 18 147/78 98 06/12/16 16:08 96.8 91 18 162/78 97 06/12/16 14:52 91 18 158/90 95 Room Air 06/12/16 13:11 89 20 151/80 96 Room Air 06/12/16 06/12/16 06/13/16 15:00 23:00 07:00 # Voids 2 2 # Bowel Movements 1 2 2 Result Diagram: 06/12/16 0756 06/13/16 0605 Other Results Laboratory Tests Test 06/12/16 06/12/16 06/13/16 07:56 08:02 06:05 White Blood Count 7.3 TH/MM3 Red Blood Count 3.24 MIL/MM3 Hemoglobin 10.2 GM/DL Hematocrit 30.3 % Mean Corpuscular Volume 93.4 FL Mean Corpuscular Hemoglobin 31.6 PG Mean Corpuscular Hemoglobin 33.9 % Concent Red Cell Distribution Width 19.4 % Platelet Count 464 TH/MM3 Mean Platelet Volume 7.8 FL Neutrophils (%) (Auto) 74.1 % Lymphocytes (%) (Auto) 17.2 % Monocytes (%) (Auto) 6.6 % Eosinophils (%) (Auto) 0.9 % Basophils (%) (Auto) 1.2 % Neutrophils # (Auto) 5.4 TH/MM3 Lymphocytes # (Auto) 1.2 TH/MM3 Monocytes # (Auto) 0.5 TH/MM3 Eosinophils # (Auto) 0.1 TH/MM3 Basophils # (Auto) 0.1 TH/MM3 CBC Comment DIFF FINAL Differential Comment Prothrombin Time 10.6 SEC Prothromb Time International 1.0 RATIO Ratio Activated Partial 26.5 SEC Thromboplast Time Sodium Level 137 MEQ/L 140 MEQ/L Potassium Level 3.1 MEQ/L 3.5 MEQ/L Chloride Level 101 MEQ/L 101 MEQ/L Carbon Dioxide Level 27.0 MEQ/L 31.1 MEQ/L Anion Gap 9 MEQ/L 8 MEQ/L Blood Urea Nitrogen 16 MG/DL 12 MG/DL Creatinine 0.73 MG/DL 0.58 MG/DL Estimat Glomerular Filtration 76 ML/MIN 99 ML/MIN Rate Random Glucose 160 MG/DL 98 MG/DL Calcium Level 9.3 MG/DL 8.9 MG/DL Total Bilirubin 0.4 MG/DL Aspartate Amino Transf 18 U/L (AST/SGOT) Alanine Aminotransferase 14 U/L (ALT/SGPT) Alkaline Phosphatase 96 U/L Total Protein 7.3 GM/DL Albumin 2.3 GM/DL Urine Color YELLOW Urine Turbidity CLEAR Urine pH 5.0 Urine Specific Orient 1.009 Urine Protein NEG mg/dL Urine Glucose (UA) NEG mg/dL Urine Ketones NEG mg/dL Urine Occult Blood NEG Urine Nitrite NEG Urine Bilirubin NEG Urine Urobilinogen LESS THAN 2.0 MG/DL Urine Leukocyte Esterase SMALL Urine RBC LESS THAN 1 /hpf Urine WBC 7 /hpf Urine WBC Clumps RARE Urine Bacteria OCC /hpf Urine Mucus FEW /lpf Microscopic Urinalysis Comment CULTURE INDICATED Magnesium Level 2.1 MG/DL Imaging Last Impressions Foot X-Ray 06/12/16723 Signed Impressions: Service Date/Time: Sunday, June 12, 2016 07:44 - CONCLUSION: Soft tissue swelling otherwise negative. Moderate digital artery calcifications are noted. Jayce Romero MD FACR Abdomen X-Ray 06/12/16717 Signed Impressions: Service Date/Time: Sunday, June 12, 2016 07:38 - CONCLUSION: Minimal colonic gas with moderate stool throughout the colon. Jayce Romero MD FACR Objective Remarks General: NAD, AAOx3 Chest: CTA bilaterally Cardiac: Regular Abd: +BS, soft ND/NT Ext: Left foot bandages are c/d/i A/P Problem List: (1) Constipation Status: Acute Plan: - Pt presents with constipation/impaction. she has hx rectal fissure. - She has left foot pad - Pt was given Mag citrate/Fleet enemas/Lidocaine jelly to the rectum with success. - Pt had multiple BMs last night and is clinically improved. - Family requesting repeat KUB today to confirm impaction resolved. - Pt will need to continue with stool softeners and laxatives outpt to try to prevent constipation as pt is not mobile and will be prone to constipation. - PT - Podiatry was consulted regarding pts L foot ulcer which was found to be stable - Pt was recommend continued Betadine wet to dry dressings to maintain stability of wound. - If infection occurs with redness, swelling, drainage, will require amputation based on vascular surgery recommendations. - Recommend against surgery at this time. - If KUB is negative then we will plan for discharge home this afternoon with a bowel regimen. (2) Anal fissure Status: Acute Plan: see above (3) Hypokalemia Status: Acute Plan: see above (4) PAD (peripheral artery disease) Status: Acute Plan: see above (5) CVA (cerebral vascular accident) Status: Chronic (6) HTN (hypertension) Status: Chronic Plan: home meds Assessment and Plan Patient examined. Assessment and plan formulated with Estrella Membreno PA-C. I agree with the above. constipation and impaction. left foot ischemic changes/ulceration. chronic. seen by podiatry try consult to IR for enema. once resolved then d/c. Estrella Membreno Jun 13, 2016 12:15 Sha Jones MD Jun 13, 2016 22:11
[2016-06-13 12:26] VITALS: BP 126/61; PULSE 67; RESP 18; TEMP 96.8; O2SAT 95
--- NOTE | 2016-06-13 15:33 | RADRPT ---
EXAM DATE/TIME: 06/13/2016 13:34 [facility] COMPARISON: ABDOMEN KUB ONLY, January 25, 2016, 21:13. INDICATIONS : Constipation. Evaluate fecal impaction. MEDICAL HISTORY : Hypertension. Carcinoma, colon. Carcinoma, breast. Cardiovascular disease. Stroke. Arthritis. SURGICAL HISTORY : Mastectomy, right. Cholecystectomy. Appendectomy. Bowel resection. ENCOUNTER: Subsequent ACUITY: 3 days PAIN SCORE: Non-responsive. LOCATION: Abdomen, all quadrants. FINDINGS: The bowel gas pattern appears normal. No free air is identified. No organomegaly is evident. There is a large amount stool within the sigmoid and rectum characteristic of fecal impaction. CONCLUSION: 1. Fecal impaction. Alpesh Hansen MD on June 13, 2016 at 15:31 Board Certified Radiologist. This report was verified electronically.
[2016-06-13 16:00] VITALS: BP 143/66; PULSE 71; RESP 18; TEMP 96.9; O2SAT 96
[2016-06-13 19:58] VITALS: BP 140/63; PULSE 77; RESP 18; TEMP 98.4; O2SAT 98
[2016-06-13] MEDS: ATORVASTATIN 40 MG TAB PO SCH (22:22)
[2016-06-13] MEDS: traMADol HCL 50 MG TAB PO PRN (22:24)
[2016-06-14 00:59] VITALS: BP 136/71; PULSE 86; RESP 18; TEMP 98.2; O2SAT 98
[2016-06-14] MEDS: SOD PHOSPHATE/SOD BIPHOSPHATE (ADULT) ENEMA 133ML PR SCH ×2 (05:45→14:00)
[2016-06-14 05:48] LABS: BICARBONATE 30.6 MEQ/L (21.0-32.0); POTASSIUM 3.4 MEQ/L (3.5-5.1)
[2016-06-14 08:08] VITALS: BP 139/61; PULSE 78; RESP 18; TEMP 97.8; O2SAT 98
[2016-06-14] MEDS ORDERED: POTASSIUM CHLORIDE 10 MEQ CONTROLLED RELEASE TAB PO ONE (08:30)
--- NOTE | 2016-06-14 09:00 | HHI.PR ---
Subjective Remarks Pt reports that overall she feels better today Still has rectal burning periodically but the lidocaine jelly helps. She has just had some fluid stooling after the enema, no solid stools. Objective Vitals Vital Signs Date Time Temp Pulse Resp B/P Pulse Ox O2 Delivery O2 Flow Rate FiO2 06/14/16 08:08 97.8 78 18 139/61 98 06/14/16 00:59 98.2 86 18 136/71 98 06/13/16 23:29 20 06/13/16 19:58 98.4 77 18 140/63 98 06/13/16 16:00 96.9 71 18 143/66 96 06/13/16 12:26 96.8 67 18 126/61 95 06/13/16 06/13/16 06/14/16 15:00 23:00 07:00 Intake Total 120 ml Balance 120 ml Intake Oral 120 ml # Voids 2 # Bowel Movements 2 Result Diagram: 06/12/16 0756 06/14/16 0455 Other Results Laboratory Tests Test 06/13/16 06/14/16 06:05 04:55 Sodium Level 140 MEQ/L 140 MEQ/L Potassium Level 3.5 MEQ/L 3.4 MEQ/L Chloride Level 101 MEQ/L 102 MEQ/L Carbon Dioxide Level 31.1 MEQ/L 30.6 MEQ/L Anion Gap 8 MEQ/L 7 MEQ/L Blood Urea Nitrogen 12 MG/DL 10 MG/DL Creatinine 0.58 MG/DL 0.58 MG/DL Estimat Glomerular Filtration 99 ML/MIN 99 ML/MIN Rate Random Glucose 98 MG/DL 92 MG/DL Calcium Level 8.9 MG/DL 9.1 MG/DL Magnesium Level 2.1 MG/DL Imaging Last Impressions Foot X-Ray 06/12/16723 Signed Impressions: Service Date/Time: Sunday, June 12, 2016 07:44 - CONCLUSION: Soft tissue swelling otherwise negative. Moderate digital artery calcifications are noted. Jayce Romero MD FACR Abdomen X-Ray 06/12/16717 Signed Impressions: Service Date/Time: Sunday, June 12, 2016 07:38 - CONCLUSION: Minimal colonic gas with moderate stool throughout the colon. Jayce Romero MD FACR Objective Remarks General: NAD, AAOx3 Chest: CTA bilaterally Cardiac: Regular Abd: +BS, soft ND/NT Ext: Left foot bandages are c/d/i A/P Problem List: (1) Constipation Status: Acute Plan: - Pt presents with constipation/impaction. she has hx rectal fissure. - She has left foot pad - Pt was given Mag citrate/Fleet enemas/Lidocaine jelly to the rectum with success. - Pt had multiple BMs last night and is clinically improved. - Repeat KUB with stool impaction still noted. - Gastrografin enema ordered to try to relieve impaction. If no relief with Gastrografin enema then may need to consult GI for disimpaction under anesthesia. - Pt will need to continue with stool softeners and laxatives outpt to try to prevent constipation as pt is not mobile and will be prone to constipation. - PT - Podiatry was consulted regarding pts L foot ulcer which was found to be stable - Pt was recommend continued Betadine wet to dry dressings to maintain stability of wound. - If infection occurs with redness, swelling, drainage, will require amputation based on vascular surgery recommendations. - Recommend against surgery at this time. (2) Anal fissure Status: Acute Plan: see above (3) Hypokalemia Status: Acute Plan: see above (4) PAD (peripheral artery disease) Status: Acute Plan: see above (5) CVA (cerebral vascular accident) Status: Chronic (6) HTN (hypertension) Status: Chronic Plan: home meds Assessment and Plan Patient examined. Assessment and plan formulated with Estrella Membreno PA-C. I agree with the above. severe constipation and stool impaction. GE today. if not successful then consult gi tomorrow. Estrella Membreno Jun 14, 2016 09:00 Sha Jones MD Jun 14, 2016 16:40
[2016-06-14] MEDS ORDERED: DIATRIZOATE MEGLUM/DIATRIZOATE SOD 120 ML BTL (for RAD DIAG) RECTAL ONE (10:28)
--- NOTE | 2016-06-14 10:37 | RADRPT ---
EXAM DATE/TIME: 06/14/2016 09:39 [facility] COMPARISON: ABDOMEN KUB ONLY, June 13, 2016, 13:34. INDICATIONS : Fecal impaction. FLUORO TIME: 2.5 minutes IMAGE COUNT: 9 CONTRAST: 1. [facility] MEDICAL HISTORY : None. SURGICAL HISTORY : None. ENCOUNTER: Initial ACUITY: 2 days PAIN SCORE: Non-responsive. LOCATION: Bilateral abdomen FINDINGS: Preliminary film is unremarkable. Under fluoroscopic guidance a Gastrografin enema was performed with free flow of contrast to the ceca l tip. Colon filled in a retrograde fashion with diluted Gastrografin and appears normal in size configurati on and position with a moderate amount of stool particularly in the right and transverse colon and a large area stool in the rectosigmoid bowel. Post evacuation radiographs are unremarkable. CONCLUSION: Moderate amount stool in the colon with a large area of retained stool in the rectosigmoid vault. No intrinsic or extrinsic lesion. Examination performed as a therapeutic examination Agapito Mcintosh MD on June 14, 2016 at 10:34 Board Certified Radiologist. This report was verified electronically.
[2016-06-14] MEDS: ASPIRIN 325 MG TAB PO SCH (10:49)
[2016-06-14] MEDS: PANTOPRAZOLE SOD 40 MG DELAYED RELEASE TAB PO SCH (10:49)
[2016-06-14] MEDS: DOCUSATE SODIUM 100 MG CAP PO SCH ×2 (10:50→22:16)
[2016-06-14] MEDS: METOPROLOL TARTRATE 50 MG TAB PO SCH (10:50)
[2016-06-14] MEDS: QUEtiapine FUMARATE 25 MG TAB PO SCH ×2 (10:50→22:16)
[2016-06-14] MEDS: LIDOCAINE 2% JELLY 5 ML TUBE TOPICAL SCH ×4 (10:51→22:17)
[2016-06-14 11:40] VITALS: BP 142/67; PULSE 77; RESP 20; TEMP 97.4; O2SAT 94
[2016-06-14 15:09] VITALS: BP 129/61; PULSE 64; RESP 18; TEMP 97.8; O2SAT 98
[2016-06-14] MEDS ORDERED: MAGNESIUM CITRATE SOLN 300 ML BTL PO ONE (18:00)
[2016-06-14 20:00] VITALS: BP 146/73; PULSE 73; RESP 18; TEMP 97.4; O2SAT 98
[2016-06-14] MEDS: ATORVASTATIN 40 MG TAB PO SCH (22:16)
[2016-06-15] VITALS: BP 149/69; PULSE 83; RESP 18; TEMP 97.6; O2SAT 94
[2016-06-15 07:52] LABS: AUTOMATED NEUTROPHIL # 4.1 TH/MM3 (1.8-7.7); BASOPHIL # 0.1 TH/MM3 (0-0.2); BASOPHIL % 1.3 % (0.0-2.0); EOSINOPHIL # 0.2 TH/MM3 (0-0.4); EOSINOPHIL % 2.8 % (0.0-4.0); HEMO FLAGS DIFF FINAL; LYMPH % 20.5 % (9.0-44.0); LYMPHOCYTE # 1.2 TH/MM3 (1.0-4.8); MEAN CELL VOLUME 93.3 FL (80.0-100.0); MEAN CORPUSCULAR HEMOGLOBIN 31.4 PG (27.0-34.0); MEAN CORPUSCULAR HGB CONC 33.7 % (32.0-36.0); MONO % 8.1 % (0.0-8.0); NEUT % 67.3 % (16.0-70.0); PLATELET COUNT 464 TH/MM3 (150-450); RED CELL DISTRIBUTION WIDTH 19.6 % (11.6-17.2); WHITE BLOOD COUNT 6.1 TH/MM3 (4.0-11.0)
[2016-06-15 08:00] VITALS: BP 164/73; PULSE 85; RESP 20; TEMP 97.3; O2SAT 91
[2016-06-15 08:23] LABS: BICARBONATE 29.1 MEQ/L (21.0-32.0); MAGNESIUM 2.4 MG/DL (1.5-2.5); POTASSIUM 3.2 MEQ/L (3.5-5.1)
--- NOTE | 2016-06-15 08:32 | HHI.PR ---
Subjective Remarks Pt had liquid stools after the Gastrografin enema overnight, no solid stools noted. Pt reports continued rectal pain but this is relieved with the lidocaine jelly Afebrile Objective Vitals Vital Signs Date Time Temp Pulse Resp B/P Pulse Ox O2 Delivery O2 Flow Rate FiO2 06/15/16 00:00 97.6 83 18 149/69 94 06/14/16 20:00 97.4 73 18 146/73 98 06/14/16 15:09 97.8 64 18 129/61 98 06/14/16 11:40 97.4 77 20 142/67 94 06/14/16 06/14/16 06/15/16 15:00 23:00 07:00 Intake Total 120 ml Balance 120 ml Intake Oral 120 ml # Voids 1 Result Diagram: 06/15/16 0732 06/15/16 0732 Other Results Laboratory Tests Test 06/14/16 06/15/16 04:55 07:32 Sodium Level 140 MEQ/L 138 MEQ/L Potassium Level 3.4 MEQ/L 3.2 MEQ/L Chloride Level 102 MEQ/L 101 MEQ/L Carbon Dioxide Level 30.6 MEQ/L 29.1 MEQ/L Anion Gap 7 MEQ/L 8 MEQ/L Blood Urea Nitrogen 10 MG/DL 9 MG/DL Creatinine 0.58 MG/DL 0.68 MG/DL Estimat Glomerular Filtration 99 ML/MIN 82 ML/MIN Rate Random Glucose 92 MG/DL 87 MG/DL Calcium Level 9.1 MG/DL 8.9 MG/DL White Blood Count 6.1 TH/MM3 Red Blood Count 3.00 MIL/MM3 Hemoglobin 9.4 GM/DL Hematocrit 28.0 % Mean Corpuscular Volume 93.3 FL Mean Corpuscular Hemoglobin 31.4 PG Mean Corpuscular Hemoglobin 33.7 % Concent Red Cell Distribution Width 19.6 % Platelet Count 464 TH/MM3 Mean Platelet Volume 7.5 FL Neutrophils (%) (Auto) 67.3 % Lymphocytes (%) (Auto) 20.5 % Monocytes (%) (Auto) 8.1 % Eosinophils (%) (Auto) 2.8 % Basophils (%) (Auto) 1.3 % Neutrophils # (Auto) 4.1 TH/MM3 Lymphocytes # (Auto) 1.2 TH/MM3 Monocytes # (Auto) 0.5 TH/MM3 Eosinophils # (Auto) 0.2 TH/MM3 Basophils # (Auto) 0.1 TH/MM3 CBC Comment DIFF FINAL Differential Comment Magnesium Level 2.4 MG/DL Imaging Last Impressions Foot X-Ray 06/12/16723 Signed Impressions: Service Date/Time: Sunday, June 12, 2016 07:44 - CONCLUSION: Soft tissue swelling otherwise negative. Moderate digital artery calcifications are noted. Jayce Romero MD FACR Abdomen X-Ray 06/12/16717 Signed Impressions: Service Date/Time: Sunday, June 12, 2016 07:38 - CONCLUSION: Minimal colonic gas with moderate stool throughout the colon. Jayce Romero MD FACR Objective Remarks General: NAD, AAOx2 Chest: CTA bilaterally Cardiac: Regular Abd: +BS, soft ND/NT Ext: Left foot bandages are c/d/i A/P Problem List: (1) Constipation Status: Acute Plan: - Pt presents with constipation/impaction. she has hx rectal fissure. - She has left foot pad - Pt was given Mag citrate/Fleet enemas/Lidocaine jelly to the rectum with success. - Pt had multiple BMs last night and is clinically improved. - Repeat KUB with stool impaction still noted. - Gastrografin enema ordered to try to relieve impaction but pt has not had any solid stool just liquid, likely overflow diarrhea. - Consult GI for disimpaction under anesthesia. - PT - Podiatry was consulted regarding pts L foot ulcer which was found to be stable - Pt was recommend continued Betadine wet to dry dressings to maintain stability of wound. - If infection occurs with redness, swelling, drainage, will require amputation based on vascular surgery recommendations. - Recommend against surgery at this time. (2) Anal fissure Status: Acute Plan: see above (3) Hypokalemia Status: Acute Plan: see above (4) PAD (peripheral artery disease) Status: Acute Plan: see above (5) CVA (cerebral vascular accident) Status: Chronic (6) HTN (hypertension) Status: Chronic Plan: home meds Assessment and Plan Patient examined. Assessment and plan formulated with Estrella Membreno PA-C. I agree with the above. constipation/impaction. await CRS eval. Estrella Membreno Jun 15, 2016 08:32 Sha Jones MD Jun 15, 2016 16:08
[2016-06-15] MEDS: ASPIRIN 325 MG TAB PO SCH (09:00)
[2016-06-15] MEDS: PANTOPRAZOLE SOD 40 MG DELAYED RELEASE TAB PO SCH (09:00)
[2016-06-15] MEDS: DOCUSATE SODIUM 100 MG CAP PO SCH ×2 (09:00→21:58)
[2016-06-15] MEDS: QUEtiapine FUMARATE 25 MG TAB PO SCH ×2 (09:41→21:58)
[2016-06-15] MEDS: METOPROLOL TARTRATE 50 MG TAB PO SCH (09:41)
[2016-06-15] MEDS: LIDOCAINE 2% JELLY 5 ML TUBE TOPICAL SCH ×4 (09:42→21:58)
--- NOTE | 2016-06-15 10:25 | PD.CONS ---
HPI History of Present Illness This is a 85 year old with chronic constipation/fecal impaction, who came to the the ER for evaluation of severe constipation. She was noted to have a lot of stool on rectal exam and manual disimpaction was attempted, but unsuccessful. KUB (06/13/16) revealed fecal impaction. She then underwent gastrografin enema (06/14/16) which revealed a moderate amount of stool in the colon with a large area of retained stool in the rectosigmoid vault. No intrinsic or extrinsic lesion. Examination performed as a therapeutic examination. Unfortunately, she did not have any passage of solid stools overnight. GI was consulted for severe constipation/fecal impaction. She was seen by us in the hospital in January of 2016 for the same. At that time, she was originally treated with treated with manual disimpaction, mineral oil enemas , miralax, colace, lactulose, MOM, but did not have any results and therefore she was given Magnesium citrate x 2 bottles, fleets enemas with lidocaine jelly for the rectal pain. She did have multiple bowel movements with this and she was discharged home with orders for lidocaine jelly as needed, Colace, Lactulose , and Dulcolax suppositories/MOM as needed. She does have a hx of colon cancer about 30 years ago, which was treated with partial colectomy. According to our office records, she had a normal colonoscopy with Dr. Humphreys in 2008, although the patient's daughter believes she has also since had another one, but is unsure who did this and is trying to find out. Of note, she was last seen by us in 2011 for constipation. 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 She was referred to IR for further evaluation, but the patient does not recall if she was seen. However, she is not having any post-prandial abdominal pain/cramping/diarrhea. EGD (01/21/09)----> nodular mucosa in the antrum, esophagitis in the distal esophagus, hiatal hernia. Pathology with mild chronic gastritis and focal epithelial hyperplasia, H. Pylori negative, moderate reflux esophagitis, no quezada's esophagus is present. The patient is very lethargic and does not answer many questions. She does state that she has not had a bowel movement and when asked if she is having rectal pain, she states no. The nurse reports that she has not had any bowel movements, other than small amount of liquid stool. Attempted to call daughter Ariane Cortes at , no answer and therefore message was left. 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 CHF GERD Gastritis Mesenteric artery stenosis Hx Pancreatitis Hx breast cancer Hx colon cancer Hyperlipidemia Past Surgical History Mastectomy Colon resection EGD Cholecystectomy Appendectomy Bilateral cataract surgery Left wrist ORIF (Radha Medina) Coded Allergies: Heparin (Verified Adverse Reaction, Severe, 05/14/16) CAUSED THROMBOSIS Medications Allergies Coded Allergies Type Severity Reaction Last Updated Verified Heparin Adverse Reaction Severe 05/14/16 Yes Active Scripts Medications Dose Route/Sig Days Date Category Quetiapine (Quetiapine Fumarate) 25 Mg Tab 12.5 Mg PO BID 05/24/16 Rx Tramadol (Tramadol HCl) 50 Mg Tab 50 Mg PO Q6H PRN 05/14/16 Reported Protonix (Pantoprazole Sodium) 40 Mg Tab 40 Mg PO DAILY 05/14/16 Reported Lyrica (Pregabalin) 50 Mg Cap 50 Mg PO BID PRN 05/14/16 Reported Metoprolol Tartrate 50 Mg Tab 50 Mg PO DAILY 05/14/16 Reported Magnesium Citrate 100 Mg Tab 100 Mg PO DAILY PRN 05/14/16 Reported Docusate Sodium 100 Mg Cap 100 Mg PO BID 05/14/16 Reported Clonidine (Clonidine HCl) 0.2 Mg Tab 0.2 Mg PO Q6HR PRN 05/14/16 Reported Bisacodyl Supp (Bisacodyl) 10 Mg Supp 10 Mg RECTAL DAILY PRN 05/14/16 Reported Atorvastatin (Atorvastatin Calcium) 40 Mg Tab 40 Mg PO HS 05/14/16 Reported Aspirin 325 Mg Tab 325 Mg PO DAILY 05/14/16 Reported Amlodipine (Amlodipine Besylate) 10 Mg Tab 10 Mg PO DAILY 05/14/16 Reported Family History Noncontributory Social History No tobacco, etoh, illicit drug use. (Radha Medina) Review of Systems Gastrointestinal: COMPLAINS OF: Constipation, DENIES: Abdominal pain ROS Unable to obtain (Radha Medina GIANA) GI Exam Vitals I&O Vital Signs Date Time Temp Pulse Resp B/P Pulse Ox O2 Delivery O2 Flow Rate FiO2 06/15/16 08:00 97.3 85 20 164/73 91 06/15/16 00:00 97.6 83 18 149/69 94 06/14/16 20:00 97.4 73 18 146/73 98 06/14/16 15:09 97.8 64 18 129/61 98 06/14/16 11:40 97.4 77 20 142/67 94 I/O 06/14/16 06/14/16 06/14/16 06/15/16 06/15/16 06/15/16 07:00 15:00 23:00 07:00 15:00 23:00 Intake Total 120 ml Balance 120 ml Intake Oral 120 ml # Voids 1 Imaging Last Impressions Enema w/Water Soluble 06/14/16 0000 Signed Impressions: Service Date/Time: Tuesday, June 14, 2016 09:39 - CONCLUSION: Moderate amount stool in the colon with a large area of retained stool in the rectosigmoid vault. No intrinsic or extrinsic lesion. Examination performed as a therapeutic examination Agapito Mcintosh MD Abdomen X-Ray 06/13/16 0000 Signed Impressions: Service Date/Time: Monday, June 13, 2016 13:34 - CONCLUSION: 1. Fecal impaction. Alpesh Hansen MD Foot X-Ray 06/12/16 0724 Signed Impressions: Service Date/Time: Sunday, June 12, 2016 07:44 - CONCLUSION: Soft tissue swelling otherwise negative. Moderate digital artery calcifications are noted. Jayce Romero MD FACR Laboratory Test 06/15/16 07:32 White Blood Count 6.1 TH/MM3 Red Blood Count 3.00 MIL/MM3 Hemoglobin 9.4 GM/DL Hematocrit 28.0 % Mean Corpuscular Volume 93.3 FL Mean Corpuscular Hemoglobin 31.4 PG Mean Corpuscular Hemoglobin 33.7 % Concent Red Cell Distribution Width 19.6 % Platelet Count 464 TH/MM3 Mean Platelet Volume 7.5 FL Neutrophils (%) (Auto) 67.3 % Lymphocytes (%) (Auto) 20.5 % Monocytes (%) (Auto) 8.1 % Eosinophils (%) (Auto) 2.8 % Basophils (%) (Auto) 1.3 % Neutrophils # (Auto) 4.1 TH/MM3 Lymphocytes # (Auto) 1.2 TH/MM3 Monocytes # (Auto) 0.5 TH/MM3 Eosinophils # (Auto) 0.2 TH/MM3 Basophils # (Auto) 0.1 TH/MM3 CBC Comment DIFF FINAL Differential Comment Sodium Level 138 MEQ/L Potassium Level 3.2 MEQ/L Chloride Level 101 MEQ/L Carbon Dioxide Level 29.1 MEQ/L Anion Gap 8 MEQ/L Blood Urea Nitrogen 9 MG/DL Creatinine 0.68 MG/DL Estimat Glomerular Filtration 82 ML/MIN Rate Random Glucose 87 MG/DL Calcium Level 8.9 MG/DL Magnesium Level 2.4 MG/DL Date/Time Procedure Status Source Growth 06/12/16 10:17 Aerobic Blood Culture - Preliminary Resulted Blood Peripheral NO GROWTH IN 2 DAYS 06/12/16 10:17 Anaerobic Blood Culture - Preliminary Resulted Blood Peripheral NO GROWTH IN 2 DAYS 06/12/16 08:02 Urine Culture - Preliminary Resulted Urine Clean Catch Yeast Species Physical Examination HEENT: Normocephalic; atraumatic; no jaundice. CHEST: CtA CARDIAC: RRR ABDOMEN: Soft, nondistended, nontender; no hepatosplenomegaly; bowel sounds are present in all four quadrants. EXTREMITIES: No clubbing, cyanosis, or edema. SKIN: Drsg left foot d/i. SECURITY OPERATIONS ANALYST: No focal deficits;lethargic, oriented to self. (Radha MedinaP) Assessment and Plan Plan ASSESSMENT: - Severe constipation, fecal impaction. KUB (06/13/16) revealed fecal impaction. S/P unsuccessful manual disimpaction, magnesium citrate and fleets enema was ordered. Magnesium citrate charted, but is at the bedside. Fleets enema charted as not given. Gastrografin enema (06/14/16) revealed a moderate amount of stool in the colon with a large area of retained stool in the rectosigmoid vault. No intrinsic or extrinsic lesion. Examination performed as a therapeutic examination. Unfortunately, she did not have any passage of solid stools overnight. GI was consulted for severe constipation/fecal impaction. She has not had any significant bowel movement yet. She denies rectal pain at this time. Spoke to patient regarding decompressive colonoscopy, but she did not respond one way or another about this. Attempted to call daughter Ariane Cortes at , no answer and therefore message was left. - Chronic constipation, fecal impaction. Will need to be on good bowel regimen after decompressive colonoscopy. 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 She was referred to IR for further evaluation, but the patient does not recall if she was seen. She denies any post-prandial abdominal pain/cramping/diarrhea. - Hx of colon cancer about 30 years ago, which was treated with partial colectomy. According to our office records, she had a normal colonoscopy with Dr. Humphreys in 2008 - Anemia. HH 9.4/28.0. - CVA, HTN, PAD per primary PLAN: - PLan for decompressive colonoscopy today - Obtain consents - NPO - SSE x 2 now - Lidocaine jelly to rectum prn. - Supportive care - Further recommendations to follow based on results of above - Pt seen and examined by Dr. Padilla and myself and this note is written on her behalf ADDENDUM, Daughter returned call. She does not wish to pursue colonoscopy at this time. She is concerned about her age and anesthesia and would only agree to this if we try magnesium citrate again and if there are no results. She is requesting that Dr. Humphreys be consulted, as patient apparently followed up with him in February for colonoscopy and this was not able to be done because of constipation/fecal impaction and she reports that he said if she went back to hospital that he could come and evaluate at that time. Will order Magnesium citrate one now followed by 8oz water and repeat later this afternoon, SSE x 2, and consult Dr. Humphreys per patient's daughter's request. Hold on colonoscopy at this time. (Radha Medina) Physician Comments seen, examined agree with above we will await dr humphreys's input (Marisa Padilla MD) Radha Medina Jun 15, 2016 10:25 Marisa Padilla MD Jun 15, 2016 20:25
[2016-06-15] MEDS ORDERED: GLYCERIN ADULT 2 GM SUPP RECTAL ONE (11:45)
[2016-06-15] MEDS ORDERED: MAGNESIUM CITRATE SOLN 300 ML BTL PO ONE ×2 (11:45→16:00)
[2016-06-15 12:00] VITALS: BP 142/65; PULSE 64; RESP 20; TEMP 97.7; O2SAT 96
[2016-06-15] MEDS ORDERED: POTASSIUM CHLORIDE 20 MEQ CONTROLLED RELEASE TAB PO ONE (17:00)
[2016-06-15 20:17] VITALS: BP 141/71; PULSE 90; RESP 19; TEMP 97.1; O2SAT 97
[2016-06-15] MEDS: ATORVASTATIN 40 MG TAB PO SCH (21:58)
[2016-06-16 03:57] VITALS: BP 144/65; PULSE 86; RESP 20; TEMP 97.2; O2SAT 94
--- NOTE | 2016-06-16 05:40 | RADRPT ---
EXAM DATE/TIME: 06/16/2016 05:29 [place] COMPARISON: ABDOMEN KUB ONLY, June 13, 2016, 13:34. INDICATIONS : Constipation. MEDICAL HISTORY : None. SURGICAL HISTORY : None. ENCOUNTER: Subsequent ACUITY: 4 - 6 days PAIN SCORE: Non-responsive. LOCATION: abdomen, all quadrants. FINDINGS: The abdomen is partially visualized, the left lateral aspect of the abdomen is excluded. Air is seen throughout nondilated small and large bowel. Aortic calcifications are seen. CONCLUSION: Nonobstructive bowel gas pattern. William Obregon MD on June 16, 2016 at 5:38 Board Certified Radiologist. This report was verified electronically.
[2016-06-16 09:13] VITALS: BP 163/72; PULSE 95; RESP 18; TEMP 97.9; O2SAT 95
--- NOTE | 2016-06-16 09:41 | HHI.PR ---
Subjective Remarks Pt just having liquid stools with the enema and Mag citrate Pt complains of continued rectal pain but the lidocaine jelly does help Objective Vitals Vital Signs Date Time Temp Pulse Resp B/P Pulse Ox O2 Delivery O2 Flow Rate FiO2 06/16/16 09:13 97.9 95 18 163/72 95 06/16/16 03:57 97.2 86 20 144/65 94 06/15/16 20:17 97.1 90 19 141/71 97 06/15/16 12:00 97.7 64 20 142/65 96 06/15/16 06/15/16 06/16/16 15:00 23:00 07:00 Intake Total 625 ml Balance 625 ml Intake Oral 625 ml # Voids 3 Result Diagram: 06/15/16 0732 06/15/16 0732 Other Results Laboratory Tests Test 06/15/16 07:32 White Blood Count 6.1 TH/MM3 Red Blood Count 3.00 MIL/MM3 Hemoglobin 9.4 GM/DL Hematocrit 28.0 % Mean Corpuscular Volume 93.3 FL Mean Corpuscular Hemoglobin 31.4 PG Mean Corpuscular Hemoglobin 33.7 % Concent Red Cell Distribution Width 19.6 % Platelet Count 464 TH/MM3 Mean Platelet Volume 7.5 FL Neutrophils (%) (Auto) 67.3 % Lymphocytes (%) (Auto) 20.5 % Monocytes (%) (Auto) 8.1 % Eosinophils (%) (Auto) 2.8 % Basophils (%) (Auto) 1.3 % Neutrophils # (Auto) 4.1 TH/MM3 Lymphocytes # (Auto) 1.2 TH/MM3 Monocytes # (Auto) 0.5 TH/MM3 Eosinophils # (Auto) 0.2 TH/MM3 Basophils # (Auto) 0.1 TH/MM3 CBC Comment DIFF FINAL Differential Comment Sodium Level 138 MEQ/L Potassium Level 3.2 MEQ/L Chloride Level 101 MEQ/L Carbon Dioxide Level 29.1 MEQ/L Anion Gap 8 MEQ/L Blood Urea Nitrogen 9 MG/DL Creatinine 0.68 MG/DL Estimat Glomerular Filtration 82 ML/MIN Rate Random Glucose 87 MG/DL Calcium Level 8.9 MG/DL Magnesium Level 2.4 MG/DL Imaging Last Impressions Abdomen X-Ray 06/16/16 0600 Signed Impressions: Service Date/Time: Thursday, June 16, 2016 05:29 - CONCLUSION: Nonobstructive bowel gas pattern. William Obregon MD Enema w/Water Soluble 06/14/16 0000 Signed Impressions: Service Date/Time: Tuesday, June 14, 2016 09:39 - CONCLUSION: Moderate amount stool in the colon with a large area of retained stool in the rectosigmoid vault. No intrinsic or extrinsic lesion. Examination performed as a therapeutic examination gAapito Mcintosh MD Foot X-Ray 06/12/16723 Signed Impressions: Service Date/Time: Sunday, June 12, 2016 07:44 - CONCLUSION: Soft tissue swelling otherwise negative. Moderate digital artery calcifications are noted. Jayce Romero MD FACR Last Impressions Foot X-Ray 06/12/16723 Signed Impressions: Service Date/Time: Sunday, June 12, 2016 07:44 - CONCLUSION: Soft tissue swelling otherwise negative. Moderate digital artery calcifications are noted. Jayce Romero MD FACR Abdomen X-Ray 06/12/16717 Signed Impressions: Service Date/Time: Sunday, June 12, 2016 07:38 - CONCLUSION: Minimal colonic gas with moderate stool throughout the colon. Jayce Romero MD FACR Objective Remarks General: NAD, AAOx2 Chest: CTA bilaterally Cardiac: Regular Abd: +BS, soft ND/NT Ext: Left foot bandages are c/d/i A/P Problem List: (1) Constipation Status: Acute Plan: - Pt presents with constipation/impaction. she has hx rectal fissure. - She has left foot pad - Pt was given Mag citrate/Fleet enemas/Lidocaine jelly to the rectum with success. - Pt had multiple BMs last night and is clinically improved. - Repeat KUB with stool impaction still noted. - Gastrografin enema ordered to try to relieve impaction but pt has not had any solid stool just liquid, likely overflow diarrhea. - Consult GI for disimpaction under anesthesia but pts family refused GI workup and requested to continue the Mag Citrate and enemas and requested CRS evaluation with Dr. Humphreys as pt is known to Dr. Humphreys - YENNIFER (06/16) with non-obstructing bowel gas pattern. - PT - Podiatry was consulted regarding pts L foot ulcer which was found to be stable - Pt was recommend continued Betadine wet to dry dressings to maintain stability of wound. - If infection occurs with redness, swelling, drainage, will require amputation based on vascular surgery recommendations. - Recommend against surgery at this time. (2) Anal fissure Status: Acute Plan: see above (3) Hypokalemia Status: Acute Plan: see above (4) PAD (peripheral artery disease) Status: Acute Plan: see above (5) CVA (cerebral vascular accident) Status: Chronic (6) HTN (hypertension) Status: Chronic Plan: home meds Estrella Membreno Jun 16, 2016 09:41
[2016-06-16] MEDS: METOPROLOL TARTRATE 50 MG TAB PO SCH (10:19)
[2016-06-16] MEDS: QUEtiapine FUMARATE 25 MG TAB PO SCH ×2 (10:20→21:10)
[2016-06-16] MEDS: DOCUSATE SODIUM 100 MG CAP PO SCH (10:20)
[2016-06-16] MEDS: PANTOPRAZOLE SOD 40 MG DELAYED RELEASE TAB PO SCH (10:20)
[2016-06-16] MEDS: LIDOCAINE 2% JELLY 5 ML TUBE TOPICAL SCH ×4 (10:20→21:00)
[2016-06-16] MEDS: ASPIRIN 325 MG TAB PO SCH (10:21)
[2016-06-16 11:17] LABS: BICARBONATE 30.3 MEQ/L (21.0-32.0); POTASSIUM 3.8 MEQ/L (3.5-5.1)
[2016-06-16 12:10] VITALS: BP 143/65; PULSE 68; RESP 18; O2SAT 96
[2016-06-16 13:00] VITALS: BP 147/60; PULSE 68; RESP 18; TEMP 97.1; O2SAT 96
--- NOTE | 2016-06-16 15:35 | HHI.GIFU ---
GI Follow-up Note Consult Follow-up Subjective: Patient laying in bed comfortably, complaining of pain in left big toe . Still no bowel movement other than liquid stool.Abdominal x-ray same, soft abdomen . Awaiting input from colorectal as per family request .May need disimpaction under anaesthesia .some rectal pain, did not allow rectal exam Objective: PHYSICAL EXAMINATION: Vitals signs stable No fever Vital Signs Date Time Temp Pulse Resp B/P Pulse Ox O2 Delivery O2 Flow Rate FiO2 06/16/16 13:00 97.1 68 18 147/60 96 06/16/16 12:10 68 18 143/65 96 06/16/16 09:13 97.9 95 18 163/72 95 HEENT: Pupils round and reactive to light; normocephalic; atraumatic; no jaundice. Throat is clear. NECK: Neck is supple, no JVD, no lymphadenopathy. CHEST: Chest is clear to auscultation and percussion. CARDIAC: Regular rate and rhythm with no murmur gallop or rubs. ABDOMEN: Soft, nondistended, nontender; no hepatosplenomegaly; bowel sounds are present in all four quadrants. EXTREMITIES: No clubbing, cyanosis, or edema, bandage on left foot SKIN: Normal; no rash; no jaundice. CHIL[employer]: No focal deficits; confused Available Data (labs, X- Rays, Procedues) : Laboratory Tests Test 06/15/16 06/16/16 07:32 10:31 White Blood Count 6.1 TH/MM3 Red Blood Count 3.00 MIL/MM3 Hemoglobin 9.4 GM/DL Hematocrit 28.0 % Mean Corpuscular Volume 93.3 FL Mean Corpuscular Hemoglobin 31.4 PG Mean Corpuscular Hemoglobin 33.7 % Concent Red Cell Distribution Width 19.6 % Platelet Count 464 TH/MM3 Mean Platelet Volume 7.5 FL Neutrophils (%) (Auto) 67.3 % Lymphocytes (%) (Auto) 20.5 % Monocytes (%) (Auto) 8.1 % Eosinophils (%) (Auto) 2.8 % Basophils (%) (Auto) 1.3 % Neutrophils # (Auto) 4.1 TH/MM3 Lymphocytes # (Auto) 1.2 TH/MM3 Monocytes # (Auto) 0.5 TH/MM3 Eosinophils # (Auto) 0.2 TH/MM3 Basophils # (Auto) 0.1 TH/MM3 CBC Comment DIFF FINAL Differential Comment Sodium Level 138 MEQ/L 142 MEQ/L Potassium Level 3.2 MEQ/L 3.8 MEQ/L Chloride Level 101 MEQ/L 104 MEQ/L Carbon Dioxide Level 29.1 MEQ/L 30.3 MEQ/L Anion Gap 8 MEQ/L 8 MEQ/L Blood Urea Nitrogen 9 MG/DL 9 MG/DL Creatinine 0.68 MG/DL 0.68 MG/DL Estimat Glomerular Filtration 82 ML/MIN 82 ML/MIN Rate Random Glucose 87 MG/DL 89 MG/DL Calcium Level 8.9 MG/DL 8.9 MG/DL Magnesium Level 2.4 MG/DL ASSESSMENT/PLAN: fecal impaction-not responding as expected to current regimen Recommendations continue current regimen may need disimpaction under anesthesia -daughter requested dr Humphreys procedure -awaiting input -discuss with him, will see patient later not much to add from gi point as colorectal on the case call us as needed please we will sign off It was a pleasure seeing Raiza Cortes Thank you for this consult. Entered by: Marisa Silva MD Jun 16, 2016 15:35
[2016-06-16 16:00] VITALS: BP 140/68; PULSE 73; RESP 20; TEMP 98.5; O2SAT 96
[2016-06-16] MEDS ORDERED: DOCUSATE SODIUM 100 MG CAP PO PRN (19:15)
[2016-06-16 20:00] VITALS: BP 151/77; PULSE 81; RESP 18; TEMP 97.8; O2SAT 96
[2016-06-16] MEDS: SODIUM CHLOR 0.45% 1000 ML INJ 1,000 ML IV SCH (21:00)
[2016-06-16] MEDS: ATORVASTATIN 40 MG TAB PO SCH (21:09)
[2016-06-16] MEDS: traMADol HCL 50 MG TAB PO PRN (22:50)
--- NOTE | 2016-06-16 23:36 | HHI.PR ---
Subjective Remarks C/R Surg reviewed hospital course now with diarrhea andrea PO Objective - Vital Signs Date Time Temp Pulse Resp B/P Pulse Ox O2 Delivery O2 Flow Rate FiO2 06/16/16 20:00 97.8 81 18 151/77 96 06/12/16 14:52 Room Air Result Diagram: 06/15/16 0732 06/16/16 1031 Objective Remarks PE lethargic Abd -soft, min tympany, non-tender A/P Assessment and Plan Imp: KUB shows stool out rectal - only loose stool, no impaction decr lax cont PO PT Uche Humphreys MD Jun 16, 2016 23:36
[2016-06-17] VITALS: BP 142/76; PULSE 80; RESP 16; TEMP 97.2; O2SAT 95
[2016-06-17 04:00] VITALS: BP 129/64; PULSE 73; RESP 18; TEMP 97.7; O2SAT 95
[2016-06-17 09:08] LABS: AUTOMATED NEUTROPHIL # 2.4 TH/MM3 (1.8-7.7); BASOPHIL # 0.1 TH/MM3 (0-0.2); BASOPHIL % 2.5 % (0.0-2.0); EOSINOPHIL # 0.3 TH/MM3 (0-0.4); EOSINOPHIL % 5.6 % (0.0-4.0); HEMATOCRIT 27.2 % (35.0-46.0); HEMO FLAGS DIFF FINAL; LYMPH % 30.5 % (9.0-44.0); LYMPHOCYTE # 1.4 TH/MM3 (1.0-4.8); MEAN CELL VOLUME 94.8 FL (80.0-100.0); MEAN CORPUSCULAR HEMOGLOBIN 31.7 PG (27.0-34.0); MEAN CORPUSCULAR HGB CONC 33.4 % (32.0-36.0); MONO % 8.7 % (0.0-8.0); NEUT % 52.7 % (16.0-70.0); PLATELET COUNT 409 TH/MM3 (150-450); RED BLOOD COUNT 2.87 MIL/MM3 (4.00-5.30); RED CELL DISTRIBUTION WIDTH 18.7 % (11.6-17.2); WHITE BLOOD COUNT 4.5 TH/MM3 (4.0-11.0)
[2016-06-17 09:33] LABS: BICARBONATE 29.6 MEQ/L (21.0-32.0); MAGNESIUM 2.6 MG/DL (1.5-2.5); POTASSIUM 3.6 MEQ/L (3.5-5.1)
[2016-06-17] MEDS: QUEtiapine FUMARATE 25 MG TAB PO SCH ×2 (10:50→20:41)
[2016-06-17] MEDS: METOPROLOL TARTRATE 50 MG TAB PO SCH (10:50)
[2016-06-17] MEDS: SODIUM CHLOR 0.45% 1000 ML INJ 1,000 ML IV SCH (10:50)
[2016-06-17] MEDS: ASPIRIN 325 MG TAB PO SCH (10:54)
[2016-06-17] MEDS: LIDOCAINE 2% JELLY 5 ML TUBE TOPICAL SCH ×4 (10:55→20:41)
[2016-06-17] MEDS: PANTOPRAZOLE SOD 40 MG DELAYED RELEASE TAB PO SCH (10:55)
--- NOTE | 2016-06-17 11:23 | HHI.PR ---
Subjective Remarks no events. alot of diarrhea yesterday from laxatives. Objective Vitals heart reg lung cta abd s/nt ext left foot ischemic ulceration. Vital Signs Date Time Temp Pulse Resp B/P Pulse Ox O2 Delivery O2 Flow Rate FiO2 06/17/16 04:00 97.7 73 18 129/64 95 06/17/16 02:05 19 06/17/16 00:35 20 06/17/16 00:00 97.2 80 16 142/76 95 06/16/16 20:00 97.8 81 18 151/77 96 06/16/16 16:00 98.5 73 20 140/68 96 06/16/16 13:00 97.1 68 18 147/60 96 06/16/16 12:10 68 18 143/65 96 06/16/16 06/16/16 06/17/16 15:00 23:00 07:00 Intake Total 348 ml 1081 ml Balance 348 ml 1081 ml Intake Oral 240 ml 480 ml IV Total 108 ml 601 ml # Voids 3 4 # Bowel Movements 3 1 Result Diagram: 06/17/16 0831 06/17/16 0831 Imaging Last Impressions Abdomen X-Ray 06/16/16 0600 Signed Impressions: Service Date/Time: Thursday, June 16, 2016 05:29 - CONCLUSION: Nonobstructive bowel gas pattern. William Obregon MD Enema w/Water Soluble 06/14/16 0000 Signed Impressions: Service Date/Time: Tuesday, June 14, 2016 09:39 - CONCLUSION: Moderate amount stool in the colon with a large area of retained stool in the rectosigmoid vault. No intrinsic or extrinsic lesion. Examination performed as a therapeutic examination Agapito Mcintosh MD Foot X-Ray 06/12/16723 Signed Impressions: Service Date/Time: Sunday, June 12, 2016 07:44 - CONCLUSION: Soft tissue swelling otherwise negative. Moderate digital artery calcifications are noted. Jayce Romero MD FACR Last Impressions Foot X-Ray 06/12/16723 Signed Impressions: Service Date/Time: Sunday, June 12, 2016 07:44 - CONCLUSION: Soft tissue swelling otherwise negative. Moderate digital artery calcifications are noted. Jayce Romero MD FACR Abdomen X-Ray 06/12/1618 Signed Impressions: Service Date/Time: Sunday, June 12, 2016 07:38 - CONCLUSION: Minimal colonic gas with moderate stool throughout the colon. Jayce Romero MD FACR A/P Problem List: (1) Constipation Status: Acute Plan: - Pt presents with constipation/impaction. she has hx rectal fissure. - She has left foot pad - Pt was given Mag citrate/Fleet enemas/Lidocaine jelly to the rectum with success. - Pt had multiple BMs last night and is clinically improved. - Repeat KUB with stool impaction still noted. - Gastrografin enema ordered to try to relieve impaction but pt has not had any solid stool just liquid, likely overflow diarrhea. - Consulted GI for disimpaction under anesthesia but pts family refused GI workup and requested to continue the Mag Citrate and enemas and requested CRS evaluation with Dr. Humphreys as pt is known to Dr. Humphreys - YENNIFER (06/16) with non-obstructing bowel gas pattern. - PT - Podiatry was consulted regarding pts L foot ulcer which was found to be stable - Pt was recommend continued Betadine wet to dry dressings to maintain stability of wound. - If infection occurs with redness, swelling, drainage, will require amputation based on vascular surgery recommendations. - Recommend against surgery at this time. -bowels seems to be moving alot now with kub improved. if stable bmp then plan to d/c home in AM. (2) Anal fissure Status: Acute Plan: see above (3) Hypokalemia Status: Acute Plan: see above (4) PAD (peripheral artery disease) Status: Acute Plan: see above (5) CVA (cerebral vascular accident) Status: Chronic (6) HTN (hypertension) Status: Chronic Plan: home meds Sha Jones MD Jun 17, 2016 11:23
[2016-06-17 12:00] VITALS: BP 120/50; PULSE 72; RESP 16; TEMP 95.8; O2SAT 96
[2016-06-17 16:00] VITALS: BP 110/54; PULSE 62; RESP 16; TEMP 96.4; O2SAT 93
[2016-06-17 20:00] VITALS: BP 150/71; PULSE 65; RESP 16; TEMP 97.3; O2SAT 98
[2016-06-17] MEDS: ATORVASTATIN 40 MG TAB PO SCH (20:41)
[2016-06-18] VITALS: BP 131/65; PULSE 69; RESP 16; TEMP 98.1; O2SAT 97
[2016-06-18 04:00] VITALS: BP 134/62; PULSE 73; RESP 18; TEMP 98; O2SAT 94
[2016-06-18] MEDS: SODIUM CHLOR 0.45% 1000 ML INJ 1,000 ML IV SCH (04:14)
[2016-06-18 07:13] VITALS: BP 150/75; PULSE 77; RESP 20; TEMP 96.5; O2SAT 98
--- NOTE | 2016-06-18 08:41 | HHI.PR ---
Subjective Remarks no events overnight. Objective Vitals heart reg lung cta abd s/nt ext no edema chronic ischemic ulceration left foot Vital Signs Date Time Temp Pulse Resp B/P Pulse Ox O2 Delivery O2 Flow Rate FiO2 06/18/16 07:13 96.5 77 20 150/75 98 06/18/16 04:00 98.0 73 18 134/62 94 06/18/16 00:00 98.1 69 16 131/65 97 06/17/16 20:00 97.3 65 16 150/71 98 06/17/16 16:00 96.4 62 16 110/54 93 06/17/16 12:00 95.8 72 16 120/50 96 06/17/16 06/17/16 06/18/16 15:00 23:00 07:00 Intake Total 100 ml 810 ml 480 ml Balance 100 ml 810 ml 480 ml Intake Oral 100 ml IV Total 810 ml 480 ml # Voids 3 2 3 Result Diagram: 06/17/16 0831 06/17/16 0831 Imaging Last Impressions Abdomen X-Ray 06/16/16 0600 Signed Impressions: Service Date/Time: Thursday, June 16, 2016 05:29 - CONCLUSION: Nonobstructive bowel gas pattern. William Obregon MD Enema w/Water Soluble 06/14/16 0000 Signed Impressions: Service Date/Time: Tuesday, June 14, 2016 09:39 - CONCLUSION: Moderate amount stool in the colon with a large area of retained stool in the rectosigmoid vault. No intrinsic or extrinsic lesion. Examination performed as a therapeutic examination Agapito Mcintosh MD Foot X-Ray 06/12/16 07 Signed Impressions: Service Date/Time: Sunday, June 12, 2016 07:44 - CONCLUSION: Soft tissue swelling otherwise negative. Moderate digital artery calcifications are noted. Jayce Romero MD FACR Last Impressions Foot X-Ray 06/12/16723 Signed Impressions: Service Date/Time: Sunday, June 12, 2016 07:44 - CONCLUSION: Soft tissue swelling otherwise negative. Moderate digital artery calcifications are noted. Jayce Romero MD FACR Abdomen X-Ray 06/12/16 0718 Signed Impressions: Service Date/Time: Sunday, June 12, 2016 07:38 - CONCLUSION: Minimal colonic gas with moderate stool throughout the colon. Jayce Romero MD FACR A/P Problem List: (1) Constipation Status: Acute Plan: - Pt presents with constipation/impaction. she has hx rectal fissure. - She has left foot pad - Pt was given Mag citrate/Fleet enemas/Lidocaine jelly to the rectum with success. - Pt had multiple BMs last night and is clinically improved. - Repeat KUB with stool impaction still noted. - Gastrografin enema ordered to try to relieve impaction but pt has not had any solid stool just liquid, likely overflow diarrhea. - Consulted GI for disimpaction under anesthesia but pts family refused GI workup and requested to continue the Mag Citrate and enemas and requested CRS evaluation with Dr. Humphreys as pt is known to Dr. Humphreys - YENNIFER (06/16) with non-obstructing bowel gas pattern. - PT - Podiatry was consulted regarding pts L foot ulcer which was found to be stable - Pt was recommend continued Betadine wet to dry dressings to maintain stability of wound. - If infection occurs with redness, swelling, drainage, will require amputation based on vascular surgery recommendations. - Recommend against surgery at this time. bowels moving. discussed with dr Humphreys. ok for d/c . no intervention. (2) Anal fissure Status: Acute Plan: see above (3) Hypokalemia Status: Acute Plan: see above (4) PAD (peripheral artery disease) Status: Acute Plan: see above (5) CVA (cerebral vascular accident) Status: Chronic (6) HTN (hypertension) Status: Chronic Plan: home meds Sha Jones MD Jun 18, 2016 08:41
--- NOTE | 2016-06-18 08:43 | HHI.FF ---
Face to Face Verification Diagnosis: (1) PAD (peripheral artery disease) (2) Wound, open, foot Physical Therapy Order: Evaluate and Treat Home Health Nursing Order: Medical education Signs/symptoms of disease process Wound care and dressing changes Nursing assessment with vital signs Instructions: L foot ulcer, stable Recommend continued betadine wet to dry dressings to maintain stability of wound. If infection occurs with redness, swelling, drainage, will require amputation based on vascular surgery recommendations. Recommend against surgery at this time. I have seen patient Raiza Cortes on 06/18/16. My clinical findings support the need for the requested home health care services because: Limited ability to care for self I certify that my clinical findings support that this patient is homebound because: Impaired cognitive ability/safety Sha Jones MD Jun 18, 2016 08:43
--- NOTE | 2016-06-18 08:46 | HHI.DCPOC ---
Discharge Care Plan Diagnosis: (1) Fecal impaction (2) Foot ulcer, left (3) PAD (peripheral artery disease) Goals to Promote Your Health * To prevent worsening of your condition and complications * To maintain your health at the optimal level Directions to Meet Your Goals Take your medications as prescribed Follow your dietary instruction Follow activity as directed Keep your appointments as scheduled Take your immunizations and boosters as scheduled If your symptoms worsen call your PCP, if no PCP go to Urgent Care Center or Emergency Room Smoking is Dangerous to Your Health. Avoid second hand smoke Call the 24-hour hour crisis hotline for domestic abuse at Sha Jones MD Jun 18, 2016 08:46
--- NOTE | 2016-06-18 15:34 | HHI.DS ---
Discharge Summary Admission Date Jun 16, 2016 at 08:47 Discharge Date: Jun 18, 2016 Admitting Diagnosis stool impaction/left foot PVD (1) Constipation Diagnosis: Principal (2) Anal fissure Diagnosis: Principal (3) Hypokalemia Diagnosis: Principal (4) PAD (peripheral artery disease) Diagnosis: Principal (5) CVA (cerebral vascular accident) Diagnosis: Secondary (6) HTN (hypertension) Diagnosis: Secondary (7) Foot ulcer, left Diagnosis: Principal Brief History Ms. Cortes is an 85 y/o WF with hx cva, chronic pain, pad,presents again with constipation. In ED pt was noted to have alot of stool on rectal exam and manual disimpaction attempted. kub confirmed large amt of stool in colon. no obstruction. She has chronic pad left foot and ED notified her cost and risk analysis manager who will reevaluate her foot during admission. CBC/BMP: 06/17/16 0831 06/17/16 0831 Significant Findings Laboratory Tests Test 06/16/16 06/17/16 10:31 08:31 Estimat Glomerular Filtration 82 ML/MIN (>89) 73 ML/MIN (>89) Rate Red Blood Count 2.87 MIL/MM3 (4.00-5.30) Hemoglobin 9.1 GM/DL (11.6-15.3) Hematocrit 27.2 % (35.0-46.0) Red Cell Distribution Width 18.7 % (11.6-17.2) Monocytes (%) (Auto) 8.7 % (0.0-8.0) Eosinophils (%) (Auto) 5.6 % (0.0-4.0) Basophils (%) (Auto) 2.5 % (0.0-2.0) Calcium Level 8.4 MG/DL (8.5-10.1) Magnesium Level 2.6 MG/DL (1.5-2.5) Hospital Course - Pt presents with constipation/impaction. she has hx rectal fissure. - She has left foot pad - Pt was given Mag citrate/Fleet enemas/Lidocaine jelly to the rectum - Repeat KUB with stool impaction still noted. - Gastrografin enema ordered to try to relieve impaction but pt has not had any solid stool just liquid, likely overflow diarrhea. - Consulted GI for disimpaction under anesthesia but pts family refused GI workup and requested to continue the Mag Citrate and enemas and requested CRS evaluation with Dr. Humphreys as pt is known to Dr. Ritter Ana DE OLIVEIRA (06/16) with non-obstructing bowel gas pattern. -Seen by Dr Humphreys and bowels currently moving w/out impaction. no intervention necessary and ok for d/c - Podiatry was consulted regarding pts L foot ulcer which was found to be stable - Pt was recommend continued Betadine wet to dry dressings to maintain stability of wound. - If infection occurs with redness, swelling, drainage, will require amputation based on vascular surgery recommendations. - Recommend against surgery at this time. Pt Condition on Discharge: Stable Discharge Disposition: Disch w/ Home Health Serv Discharge Instructions DIET: Follow Instructions for: As Tolerated, No Restrictions, Soft Diet Activities you can perform: Regular-No Restrictions Follow up Referrals: PCP Follow-up - [address] Teran Pod[facility] - 2 Weeks with Alireza Bob DPM Continued Medications: Amlodipine (Amlodipine) 10 Mg Tab 10 MG PO DAILY Blood Pressure Management #30 Ref 0 TAB Aspirin (Aspirin) 325 Mg Tab 325 MG PO DAILY #30 Ref 0 TAB Atorvastatin (Atorvastatin) 40 Mg Tab 40 MG PO HS Cholesterol Management #30 Ref 0 TAB Bisacodyl Supp (Bisacodyl Supp) 10 Mg Supp 10 MG RECTAL DAILY PRN CONSTIPATION Ref 0 SUPP Clonidine (Clonidine) 0.2 Mg Tab 0.2 MG PO Q6HR PRN SBP>160, DBP>90 #60 Ref 0 TAB Docusate Sodium (Docusate Sodium) 100 Mg Cap 100 MG PO BID Prevent Constipation #60 Ref 0 CAP Magnesium Citrate (Magnesium Citrate) 100 Mg Tab 100 MG PO DAILY PRN CONSTIPATION Ref 0 TAB Metoprolol Tartrate (Metoprolol Tartrate) 50 Mg Tab 50 MG PO DAILY #30 Ref 0 TAB Pantoprazole (Protonix) 40 Mg Tab 40 MG PO DAILY Reflux #30 Ref 0 TAB Pregabalin (Lyrica) 50 Mg Cap 50 MG PO BID PRN PAIN SCALE 1 TO 7 #60 Ref 0 CAP Quetiapine (Quetiapine) 25 Mg Tab 12.5 MG PO BID Control Anxiety #60 TAB Tramadol (Tramadol) 50 Mg Tab 50 MG PO Q6H PRN PAIN Ref 0 TAB Sha Jones MD Jun 18, 2016 15:33
== END 2016-06-18 11:12 | disposition home or self-care (01) | DRG 389 ==
LOC: NEPC 07:07 → NEDA 10:24 → NEPFCDU 15:40 → OBSVTOIN 06-16 08:47 → HOCA 06-16 12:45
PROVIDERS: ADMIT Hospitalist; ATTEND Hospitalist
DX: K56.41 Fecal impaction (principal); I69.354 Hemiplegia and hemiparesis following cerebral infarction affecting left non-dominant side; N39.0 Urinary tract infection, site not specified; L97.529 Non-pressure chronic ulcer of other part of left foot with unspecified severity; I73.9 Peripheral vascular disease, unspecified; I10 Essential (primary) hypertension; D50.9 Iron deficiency anemia, unspecified; E78.5 Hyperlipidemia, unspecified; Z85.038 Personal history of other malignant neoplasm of large intestine; Z85.3 Personal history of malignant neoplasm of breast; G89.29 Other chronic pain; K60.2 Anal fissure, unspecified; E87.6 Hypokalemia; K29.70 Gastritis, unspecified, without bleeding; K21.0 Gastro-esophageal reflux disease with esophagitis; K44.9 Diaphragmatic hernia without obstruction or gangrene; R32 Unspecified urinary incontinence
CPT/HCPCS: 73630; 74000; 74020; 74270; 80048; 80053; 81001; 83735; 85025; 85610; 85730; 87040; 87086; 93922; 96365; G0378; J2543; P9612; Q9963

== ENCOUNTER 2016-07-15 09:07 | Emergency (ER) | payer MEDICARE ==
[~2016-07-15 09:07] MED LIST changes: -ACET1CAP18 PO; -CALC500C6 CHEW; -MILKSUS PO; -VITA10003 PO
[2016-07-15 09:12] VITALS: BP 125/64; PULSE 76; RESP 18; TEMP 97.9; O2SAT 100
[2016-07-15] MEDS ORDERED: SODIUM CHLORIDE 0.9% FLUSH 5 ML FLUSH IVF PRN (09:30)
--- NOTE | 2016-07-15 09:55 | PD ---
HPI Chief Complaint: General Weakness Time Seen by Provider: 09:19 Travel History International Travel<30 days: No Contact w/Intl Traveler<30days: No Traveled to known affect area: No History of Present Illness HPI This is an 85-year-old female who presents to the emergency department having been increasingly confused and altered over the past several days. Her daughter reports that she had a stroke and ever since then she's been bedbound. She has TRANSLATOR AND INTERPRETER's at home which helped take care of her. 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 Bob. They are trying to prevent the need for a dictation because they don't think she would tolerate a surgery. She also has been having a lot of trouble sleeping at night. Her daughter tried quetiapine but she says is not helping. They seen psychiatry in consultation but they didn't prescribe her anything. She is a patient of Dr. Anglin and she hasn't been back since her psychiatry appointment. History is limited because the patient is a poor historian and has early dementia. PFSH Past Medical History Hx Anticoagulant Therapy: Yes (ASA) Arthritis: Yes Asthma: No Autoimmune Disease: No Anxiety: No Depression: No Heart Rhythm Problems: No Cancer: Yes (Colon, Right breast) Cardiovascular Problems: Yes High Cholesterol: Yes Chemotherapy: Yes (ORAL) Chest Pain: No Congestive Heart Failure: No COPD: No Cerebrovascular Accident: Yes Diabetes: No Diminished Hearing: No Endocrine: No Gastrointestinal Disorders: Yes (Colon cancer) GERD: Yes Genitourinary: Yes Headaches: No Hepatitis: No Hiatal Hernia: Yes Heparin Induced Thrombocytopen: No Hypertension: Yes Immune Disorder: No Implanted Vascular Access Dvce: Yes Kidney Stones: No Medical other: Yes (GERD) Musculoskeletal: Yes Neurologic: Yes (Stroke 7.21.16, NEUROPATHY) Psychiatric: No Reproductive: No Respiratory: No Migraines: No Radiation Therapy: No Renal Failure: No Seizures: No Sickle Cell Disease: No Sleep Apnea: No Thyroid Disease: No Ulcer: No Tetanus Vaccination: Unknown Influenza Vaccination: No ?: Not Menopausal: Yes : 6 Para: 5 Miscarriage: 1 Past Surgical History Abdominal Surgery: Yes (BOWEL RESECTION, AHMET.) AICD: No Appendectomy: Yes Arteriovenous Shunt: No Body Medical Devices: Left wrist Cardiac Surgery: No Section: No Cholecystectomy: Yes Ear Surgery: No Endocrine Surgery: No Eye Surgery: Yes (BILATERAL CATARACT REMOVAL ) Genitourinary Surgery: No Gynecologic Surgery: Yes (RIGHT MASTECTOMY,) Insulin Pump: No Joint Replacement: Yes (LEFT WRIST METAL ) Neurologic Surgery: No Oral Surgery: No Pacemaker: No Thoracic Surgery: Yes Other Surgery: Yes (Gallbladder, Right Masectomy, Left wrist) Social History Alcohol Use: No Tobacco Use: No Substance Use: No Allergies-Medications (Allergen,Severity, Reaction): Coded Allergies: Heparin (Verified Adverse Reaction, Severe, 05/14/16) CAUSED THROMBOSIS Reported Meds & Prescriptions Reported Meds & Active Scripts Active Quetiapine (Quetiapine Fumarate) 25 Mg Tab 12.5 Mg PO BID Reported Tramadol (Tramadol HCl) 50 Mg Tab 50 Mg PO Q6H PRN Protonix (Pantoprazole Sodium) 40 Mg Tab 40 Mg PO DAILY Lyrica (Pregabalin) 50 Mg Cap 50 Mg PO BID PRN Metoprolol Tartrate 50 Mg Tab 50 Mg PO DAILY Magnesium Citrate 100 Mg Tab 100 Mg PO DAILY PRN Docusate Sodium 100 Mg Cap 100 Mg PO BID Bisacodyl Supp (Bisacodyl) 10 Mg Supp 10 Mg RECTAL DAILY PRN Atorvastatin (Atorvastatin Calcium) 40 Mg Tab 40 Mg PO HS Aspirin 325 Mg Tab 325 Mg PO DAILY Review of Systems ROS Limitations: Poor Historian Physical Exam Narrative GENERAL: Frail elderly female in no acute distress SKIN: Dry with skin tenting, some skin irritation along the sacroiliac crest with no breakdown, 9 x 3 cm wound on the medial aspect of the left foot with dry gangrene and no surrounding erythema or induration, with dry gangrene on the medial aspect of the left great toe as well HEAD: Atraumatic. Normocephalic. EYES: Pupils equal and round. No injection or drainage. ENT: Moist mucous membranes NECK: Trachea midline. CARDIOVASCULAR: Regular rate and rhythm. No murmur appreciated. RESPIRATORY: Clear to auscultation. Breath sounds equal bilaterally. GASTROINTESTINAL: Abdomen soft, non-tender, nondistended. MUSCULOSKELETAL: Left lower extremity is contracted. NEUROLOGICAL: Awake but confused. No obvious cranial nerve deficits. Left upper and left lower extremity paralysis Data Data Last Documented VS Vital Signs Date Time Temp Pulse Resp B/P Pulse Ox O2 Delivery O2 Flow Rate FiO2 07/15/16 10:20 72 18 124/64 97 Room Air 07/15/16 09:12 97.9 Orders Complete Blood Count With Diff (07/15/16 09:27) Comprehensive Metabolic Panel (07/15/16 09:27) Urinalysis - C+S If Indicated (07/15/16 09:27) Blood Glucose (07/15/16 09:27) Ecg Monitoring (07/15/16 09:27) Iv Access Insert/Monitor (07/15/16 09:27) Cath For Specimen (07/15/16 09:27) Oximetry (07/15/16 09:27) Sodium Chloride 0.9% Flush (Ns Flush) (07/15/16 09:30) Urine Culture (07/15/16 09:40) Labs Laboratory Tests Test 07/15/16 07/15/16 09:40 09:45 Urine Color YELLOW Urine Turbidity HAZY Urine pH 5.0 Urine Specific [place] 1.011 Urine Protein NEG mg/dL Urine Glucose (UA) NEG mg/dL Urine Ketones NEG mg/dL Urine Occult Blood NEG Urine Nitrite NEG Urine Bilirubin NEG Urine Urobilinogen LESS THAN 2.0 MG/DL Urine Leukocyte Esterase LARGE Urine RBC 2 /hpf Urine WBC 12 /hpf Urine WBC Clumps RARE Urine Transitional Epithelial <1 /hpf Cells Urine Bacteria OCC /hpf Urine Hyaline Casts 1 /lpf Urine Mucus FEW /lpf Urine Yeast (Budding) OCC Microscopic Urinalysis Comment CATH-CULTURE IND White Blood Count 6.0 TH/MM3 Red Blood Count 3.36 MIL/MM3 Hemoglobin 10.9 GM/DL Hematocrit 31.5 % Mean Corpuscular Volume 93.7 FL Mean Corpuscular Hemoglobin 32.5 PG Mean Corpuscular Hemoglobin 34.6 % Concent Red Cell Distribution Width 16.2 % Platelet Count 228 TH/MM3 Mean Platelet Volume 8.2 FL Neutrophils (%) (Auto) 59.2 % Lymphocytes (%) (Auto) 28.4 % Monocytes (%) (Auto) 9.4 % Eosinophils (%) (Auto) 2.2 % Basophils (%) (Auto) 0.8 % Neutrophils # (Auto) 3.6 TH/MM3 Lymphocytes # (Auto) 1.7 TH/MM3 Monocytes # (Auto) 0.6 TH/MM3 Eosinophils # (Auto) 0.1 TH/MM3 Basophils # (Auto) 0.0 TH/MM3 CBC Comment DIFF FINAL Differential Comment Sodium Level 140 MEQ/L Potassium Level 3.5 MEQ/L Chloride Level 104 MEQ/L Carbon Dioxide Level 26.2 MEQ/L Anion Gap 10 MEQ/L Blood Urea Nitrogen 18 MG/DL Creatinine 0.67 MG/DL Estimat Glomerular Filtration 84 ML/MIN Rate Random Glucose 98 MG/DL Calcium Level 9.6 MG/DL Total Bilirubin 0.9 MG/DL Aspartate Amino Transf 18 U/L (AST/SGOT) Alanine Aminotransferase 15 U/L (ALT/SGPT) Alkaline Phosphatase 76 U/L Total Protein 7.4 GM/DL Albumin 2.7 GM/DL MDM Medical Decision Making Medical Screen Exam Complete: Yes Emergency Medical Condition: Yes Interpretation(s) Afebrile, no tachycardia, normotensive Anemia Electrolytes are reassuring Urinalysis: Infection Differential Diagnosis Urinary tract infection, electrolyte abnormality, sepsis, bacteremia Narrative Course This is an 85-year-old female who has a history of stroke who presents to the emergency department with increasing confusion over the past several days. She was placed on a monitor and an IV was established. She was found to have a urinary tract infection. Her daughter seems overwhelmed and has a lot of concerns regarding the care of her mother including her sleep pattern, her foot which is being cared for by Dr. Bob, and skin breakdown on her back. The patient was reassured and asked to follow-up with Dr. Anglin. I suggested the addition of melatonin to try to assist in sleep as well as forming a more consistent sleep pattern. Diagnosis Primary Impression: Urinary tract infection Qualified Code: N30.00 - Acute cystitis without hematuria Patient Instructions: General Instructions Additional Instructions: If you develop fever, persistent vomiting, back pain, or inability to eat return to the emergency department as your urine infection may have progressed to a kidney infection. Complete your antibiotics as prescribed. Stay well hydrated with Gatorade or water. Followup with your primary care physician in 2-3 days if your symptoms have not resolved. Med/Other Pt SpecificInfo: Prescription(s) given Scripts Lidocaine Rectal 5 % Cream1 Applic RECTAL DAILY PRN (PAIN) #30 GM Ref 0 Prov:Danna Brian MD 07/15/16 Melatonin-Pyridoxine 2.5-338 mg-mcg Subl1 Tab SL HS PRN (SLEEP) #31 TAB.SL Ref 0 Prov:Danna Brian MD 07/15/16 Nitrofurantoin Monohydrate Macrocrystals (Macrobid)100 Mg Fvg020 Mg PO BID 7 Days Prov:Danna rBian MD 07/15/16 Disposition: 01 DISCHARGE HOME Condition: Stable Danna Brian MD Jul 15, 2016 09:55
[2016-07-15 10:17] LABS: AUTOMATED NEUTROPHIL # 3.6 TH/MM3 (1.8-7.7); BASOPHIL % 0.8 % (0.0-2.0); EOSINOPHIL # 0.1 TH/MM3 (0-0.4); EOSINOPHIL % 2.2 % (0.0-4.0); HEMATOCRIT 31.5 % (35.0-46.0); HEMO FLAGS DIFF FINAL; LYMPH % 28.4 % (9.0-44.0); LYMPHOCYTE # 1.7 TH/MM3 (1.0-4.8); MEAN CELL VOLUME 93.7 FL (80.0-100.0); MEAN CORPUSCULAR HEMOGLOBIN 32.5 PG (27.0-34.0); MEAN CORPUSCULAR HGB CONC 34.6 % (32.0-36.0); MONO % 9.4 % (0.0-8.0); NEUT % 59.2 % (16.0-70.0); PLATELET COUNT 228 TH/MM3 (150-450); RED BLOOD COUNT 3.36 MIL/MM3 (4.00-5.30); RED CELL DISTRIBUTION WIDTH 16.2 % (11.6-17.2)
[2016-07-15 10:20] VITALS: BP 124/64; PULSE 72; RESP 18; TEMP 97.9; O2SAT 97
[2016-07-15 10:23] LABS: BACTERIA, URINE OCC /hpf; BLOOD, URINE NEG (NEG); GLUCOSE,URINE NEG (NEG); HYALINE CAST, URINE 1 /lpf (RARE); KETONE, URINE NEG (NEG); MUCUS URINE FEW /lpf (OCC); NITRITE,URINE NEG (NEG); TRANSITIONAL EPI CELLS, URINE <1 /hpf; URINE COLOR YELLOW (YELLW/STRAW)
[2016-07-15 10:25] LABS: COMMENT (UR) CATH-CULTURE IND; CULTURE IF INDICATED CATH CULTURE IND
[2016-07-15 10:39] LABS: ANION GAP 10 MEQ/L (5-15); AST (GOT) 18 U/L (15-37); BICARBONATE 26.2 MEQ/L (21.0-32.0); BLOOD UREA NITROGEN 18 MG/DL (7-18); CHLORIDE 104 MEQ/L (98-107); GLOMERULAR FILTRATION RATE 84 ML/MIN (>89); POTASSIUM 3.5 MEQ/L (3.5-5.1); SODIUM (NA) 140 MEQ/L (136-145)
[2016-07-15 10:43] LABS: ALKALINE PHOSPHATASE 76 U/L (45-117); ALT (GPT) 15 U/L (10-53); TOTAL BILIRUBIN ADULT 0.9 MG/DL (0.2-1.0)
[2016-07-15] MEDS ORDERED: MACR100C2 PO (11:08)
[2016-07-15] MEDS ORDERED: [UNRECOGNIZED DRUG - CODE] SL (11:17)
[2016-07-15] MEDS ORDERED: LIDO4CRE5 RECTAL (11:18)
[2016-07-15 11:26] VITALS: TEMP 97.9
[2016-07-15 11:30] VITALS: BP 136/70; PULSE 74; RESP 18; O2SAT 96
== END 2016-07-15 12:52 | disposition home or self-care (01) ==
LOC: NEPC 09:07
DX: N30.00 Acute cystitis without hematuria (principal); R41.0 Disorientation, unspecified; R23.8 Other skin changes; G47.8 Other sleep disorders; I10 Essential (primary) hypertension; E78.00 Pure hypercholesterolemia, unspecified; F03.90 Unspecified dementia, unspecified severity, without behavioral disturbance, psychotic disturbance, mood disturbance, and anxiety; Z79.82 Long term (current) use of aspirin; Z87.39 Personal history of other diseases of the musculoskeletal system and connective tissue; Z85.038 Personal history of other malignant neoplasm of large intestine; Z85.3 Personal history of malignant neoplasm of breast; Z86.79 Personal history of other diseases of the circulatory system; Z87.19 Personal history of other diseases of the digestive system; Z87.448 Personal history of other diseases of urinary system; Z86.69 Personal history of other diseases of the nervous system and sense organs
CPT/HCPCS: 80053; 81001; 85025; 87086; 99284; P9612

== ENCOUNTER 2017-08-23 18:51 | Emergency (ER) | payer MEDICARE ==
[~2017-08-23 18:51] MED LIST changes: -AMLO10TA2 PO; +ASPI-183 PO; -ASPI325T PO; -CLON0.2T PO; -DOCU100C PO; +DOCU100C15 PO; +LIDO4CRE5 RECTAL; +MACR100C2 PO; +[UNRECOGNIZED DRUG - CODE] SL
[2017-08-23 19:01] VITALS: BP 146/72; PULSE 81; RESP 18; TEMP 98.8; O2SAT 98
[2017-08-23] MEDS ORDERED: LACT10SO PO (19:11)
[2017-08-23] MEDS ORDERED: SULF1TAB23 PO (19:11)
[2017-08-23] MEDS ORDERED: DILA4TAB10 PO (19:11)
[2017-08-23] MEDS ORDERED: AMLO5TAB2 PO (19:11)
[2017-08-23] MEDS ORDERED: SENN1TAB PO (19:11)
[2017-08-23] MEDS ORDERED: OMEP20TA93 PO (19:11)
[2017-08-23] MEDS ORDERED: METO1TAB9 PO (19:11)
[2017-08-23 19:49] LABS: AUTOMATED NEUTROPHIL # 6.1 TH/MM3 (1.8-7.7); BASOPHIL % 0.4 % (0.0-2.0); EOSINOPHIL % 0.1 % (0.0-4.0); HEMATOCRIT 37.1 % (35.0-46.0); HEMOGLOBIN 12.6 GM/DL (11.6-15.3); LYMPH % 16.7 % (9.0-44.0); LYMPHOCYTE # 1.3 TH/MM3 (1.0-4.8); MEAN CELL VOLUME 92.5 FL (80.0-100.0); MEAN CORPUSCULAR HEMOGLOBIN 31.5 PG (27.0-34.0); MEAN PLATELET VOLUME 9.3 FL (7.0-11.0); MONO % 6.1 % (0.0-8.0); MONOCYTE # 0.5 TH/MM3 (0-0.9); NEUT % 76.7 % (16.0-70.0); PLATELET COUNT 253 TH/MM3 (150-450); RED BLOOD COUNT 4.01 MIL/MM3 (4.00-5.30); RED CELL DISTRIBUTION WIDTH 15.6 % (11.6-17.2)
[2017-08-23 20:14] LABS: ALBUMIN 2.4 GM/DL (3.4-5.0); AST (GOT) 22 U/L (15-37); BICARBONATE 24.4 MEQ/L (21.0-32.0); BLOOD UREA NITROGEN 22 MG/DL (7-18); CALCIUM 8.8 MG/DL (8.5-10.1); CHLORIDE 103 MEQ/L (98-107); CREATININE 0.91 MG/DL (0.50-1.00); GLOMERULAR FILTRATION RATE 59 ML/MIN (>89); GLUCOSE,RANDOM 113 MG/DL (74-106); SODIUM (NA) 137 MEQ/L (136-145)
[2017-08-23 20:15] LABS: ALT (GPT) 23 U/L (10-53)
[2017-08-23 20:18] LABS: ALKALINE PHOSPHATASE 100 U/L (45-117); TOTAL BILIRUBIN ADULT 0.4 MG/DL (0.2-1.0); TOTAL PROTEIN 7.3 GM/DL (6.4-8.2); TROPONIN I LESS THAN 0.02 NG/ML (0.02-0.05)
--- NOTE | 2017-08-23 20:34 | RADRPT ---
EXAM DATE/TIME: 08/23/2017 20:08 [facility] COMPARISON: No previous studies available for comparison. INDICATIONS : Cough. MEDICAL HISTORY : Hypertension. Stroke. Colon cancer. Breast cancer. SURGICAL HISTORY : Mastectomy, right. Appendectomy. Cholecystectomy. ENCOUNTER: Initial ACUITY: 1 day PAIN SCORE: 0/10 LOCATION: Bilateral chest FINDINGS: A single view of the chest demonstrates the lungs to be symmetrically aerated without evidence of mas s, infiltrate or effusion. The cardiomediastinal contours are unremarkable. Osseous structures are intact. CONCLUSION: 1. No active disease. Tortuous aorta. No effusion or pneumothorax. Rick Vargas MD on August 23, 2017 at 20:29 Board Certified Radiologist. This report was verified electronically.
--- NOTE | 2017-08-23 20:36 | RADRPT ---
EXAM DATE/TIME: 08/23/2017 20:14 [facility] COMPARISON: No previous studies available for comparison. INDICATIONS : Vomiting. MEDICAL HISTORY : Gastroesophageal reflux disease. Colon cancer. Breast cancer. SURGICAL HISTORY : Cholecystectomy. Appendectomy. Bowel resection. Right mastectomy. ENCOUNTER: Initial ACUITY: 2 days PAIN SCORE: 10/10 LOCATION: Abdomen. FINDINGS: Supine view of the abdomen was performed. The abdominal bowel gas pattern is mild ileus. No abnormal masses, calcifications, or organomegaly is seen. The osseous structures are unremarkable except for degenerative change. CONCLUSION: No acute findings except mild ileus. Rick Vargas MD on August 23, 2017 at 20:32 Board Certified Radiologist. This report was verified electronically.
[2017-08-23 21:42] LABS: BILIRUBIN, URINE NEG (NEG); BLOOD, URINE NEG (NEG); GLUCOSE,URINE NEG (NEG); HYALINE CAST, URINE 2 /lpf (RARE); KETONE, URINE NEG (NEG); NITRITE,URINE NEG (NEG); PH, URINE 5.5 (5.0-8.5); URINE COLOR YELLOW (YELLW/STRAW); URINE LEUKOCYTE ESTERASE NEG (NEG)
[2017-08-23] MEDS ORDERED: DIATRIZOATE MEGLUM/DIATRIZOATE SOD 9 ML CUP PO ONE (22:45)
[2017-08-23 23:00] VITALS: BP 156/79; PULSE 84; RESP 20; O2SAT 96
[2017-08-23] MEDS ORDERED: ONDANSETRON HCL 4 MG/2 ML VIAL IV PUSH ONE (23:00)
[2017-08-23] MEDS ORDERED: SODIUM CHLORID 0.9% 500 ML INJ 500 ML IV ONE (23:00)
--- NOTE | 2017-08-23 23:59 | PD ---
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 Patient is now coming in because she is having abdominal pain progressively getting worse over the last few days. Her daughter with the visiting nurse did an enema and try to manually disimpact the patient with mild success. She is coming in tonight mainly because there was vomiting even after the disimpaction done by the daughter and the home health aide. She is very thin cachectic daughter says she has lost over 100 pounds of the last year. She also has a paralysis of the right side since the stroke. She also was recently started on Bactrim empirically for possible UTI which could be causing the suprapubic pain that she is complaining of. In the ER she is awake alert afebrile and mild distention and pain of her abdomen suprapubically otherwise no acute change from baseline PFSH Past Medical History Hx Anticoagulant Therapy: Yes (ASPIRIN) Arthritis: Yes Asthma: No Autoimmune Disease: No Anxiety: No Depression: No Heart Rhythm Problems: No Cancer: Yes (Colon, Right breast) Cardiovascular Problems: Yes High Cholesterol: Yes Chemotherapy: Yes (ORAL) Chest Pain: No Congestive Heart Failure: No COPD: No Cerebrovascular Accident: Yes (LEFT SIDED WEAKNESS) Diabetes: No Diminished Hearing: No Endocrine: No Gastrointestinal Disorders: Yes (Colon cancer) GERD: Yes Genitourinary: Yes Headaches: No Hepatitis: No Hiatal Hernia: Yes Heparin Induced Thrombocytopen: No Hypertension: Yes Immune Disorder: No Implanted Vascular Access Dvce: Yes Kidney Stones: No Medical other: Yes (GERD, [facility], SHINGLES) Musculoskeletal: Yes Neurologic: Yes (Stroke 12.09.15, NEUROPATHY) Psychiatric: No Reproductive: No Respiratory: No Migraines: No Radiation Therapy: No Renal Failure: No Seizures: No Sickle Cell Disease: No Sleep Apnea: No Thyroid Disease: No Ulcer: No Tetanus Vaccination: > 5 Years Influenza Vaccination: No ?: Not Menopausal: Yes : 6 Para: 5 Miscarriage: 1 Past Surgical History Abdominal Surgery: Yes (BOWEL RESECTION, AHMET.) AICD: No Appendectomy: Yes Arteriovenous Shunt: No Body Medical Devices: Left wrist Cardiac Surgery: No Section: No Cholecystectomy: Yes Ear Surgery: No Endocrine Surgery: No Eye Surgery: Yes (BILATERAL CATARACT REMOVAL ) Genitourinary Surgery: No Gynecologic Surgery: Yes (RIGHT MASTECTOMY,) Insulin Pump: No Joint Replacement: Yes (LEFT WRIST METAL ) Neurologic Surgery: No Oral Surgery: No Pacemaker: No Thoracic Surgery: Yes Other Surgery: Yes (Gallbladder, Right Masectomy, Left wrist) Social History Alcohol Use: No Tobacco Use: No Substance Use: No Allergies-Medications (Allergen,Severity, Reaction): Coded Allergies: enoxaparin (Unverified Adverse Reaction, Severe, 08/23/17) CAUSED THROMBOSIS heparin (porcine) (Unverified Adverse Reaction, Severe, 08/23/17) CAUSED THROMBOSIS Reported Meds & Prescriptions Reported Meds & Active Scripts Active Reported Lactulose Liq (Lactulose) 10 Gm/15 Ml Soln 30 Ml PO DAILY Sulfamethoxazole-Trimethoprim 800-160 Mg Tab 1 Tab PO BID Omeprazole 20 Mg Tab 20 Mg PO DAILY Metoprolol Succinate ER 24 HR (Metoprolol Succinate) 50 Mg Tab 50 Mg PO DAILY Amlodipine (Amlodipine Besylate) 5 Mg Tab 5 Mg PO DAILY Senna-Plus (Sennosides-Docusate Sodium) 8.6-50 Mg Tab 4 Tab PO BID Dilaudid (Hydromorphone HCl) 4 Mg Tab 4 Mg PO Q4H PRN Atorvastatin (Atorvastatin Calcium) 40 Mg Tab 40 Mg PO HS Aspirin 325 Mg Tab 325 Mg PO DAILY Review of Systems Except as stated in HPI: all other systems reviewed are Neg Gastrointestinal: Positive: Abdominal Pain Physical Exam Narrative GENERAL: contracted in bed but alert and able to answer questions SKIN: Warm and dry. HEAD: Atraumatic. Normocephalic. EYES: Pupils equal and round. No scleral icterus. No injection or drainage. ENT: No nasal bleeding or discharge. Mucous membranes pink and moist. NECK: Trachea midline. No JVD. CARDIOVASCULAR: Regular rate and rhythm. RESPIRATORY: No accessory muscle use. Clear to auscultation. Breath sounds equal bilaterally. GASTROINTESTINAL: Abdomen suprapubic tenderness . MUSCULOSKELETAL: Extremities contracted and weak right sided arm and leg NEUROLOGICAL: Awake and alert. No obvious cranial nerve deficits. Data Data Last Documented VS Vital Signs Date Time Temp Pulse Resp B/P (MAP) Pulse Ox O2 Delivery O2 Flow Rate FiO2 08/24/17 04:01 08/24/17 03:59 72 18 97 Room Air 08/23/17 19:01 98.8 Orders Orders Urinalysis - C+S If Indicated (08/23/17 19:32) Complete Blood Count With Diff (08/23/17 19:32) Comprehensive Metabolic Panel (08/23/17 19:32) Troponin I (08/23/17 19:32) Chest, Single Ap (08/23/17 ) Abdomen, Kub Only (08/23/17 ) Ct Abd/Pel W Iv Contrast(Rout) (08/23/17 ) Diatrizoate Liq ( Gastroview Liq) (08/23/17 22:45) Ondansetron Inj (Zofran Inj) (08/23/17 23:00) Oral Contrast - Adult (08/23/17 22:48) Sodium Chlorid 0.9% 500 Ml Inj (Ns 500 M (08/23/17 23:00) Iohexol 350 Inj (Omnipaque 350 Inj) (08/24/17 00:41) Sodium Chlorid 0.9% 500 Ml Inj (Ns 500 M (08/24/17 02:15) Hydromorphone Pf Inj (Dilaudid Pf Inj) (08/24/17 03:45) Ed Discharge Order (08/24/17 03:43) Hydromorphone Pf Inj (Dilaudid Pf Inj) (08/24/17 03:50) Labs Laboratory Tests Test 08/23/17 19:30 08/23/17 21:15 White Blood Count 8.0 TH/MM3 Red Blood Count 4.01 MIL/MM3 Hemoglobin 12.6 GM/DL Hematocrit 37.1 % Mean Corpuscular Volume 92.5 FL Mean Corpuscular Hemoglobin 31.5 PG Mean Corpuscular Hemoglobin Concent 34.0 % Red Cell Distribution Width 15.6 % Platelet Count 253 TH/MM3 Mean Platelet Volume 9.3 FL Neutrophils (%) (Auto) 76.7 % Lymphocytes (%) (Auto) 16.7 % Monocytes (%) (Auto) 6.1 % Eosinophils (%) (Auto) 0.1 % Basophils (%) (Auto) 0.4 % Neutrophils # (Auto) 6.1 TH/MM3 Lymphocytes # (Auto) 1.3 TH/MM3 Monocytes # (Auto) 0.5 TH/MM3 Eosinophils # (Auto) 0.0 TH/MM3 Basophils # (Auto) 0.0 TH/MM3 CBC Comment DIFF FINAL Differential Comment Blood Urea Nitrogen 22 MG/DL Creatinine 0.91 MG/DL Random Glucose 113 MG/DL Total Protein 7.3 GM/DL Albumin 2.4 GM/DL Calcium Level 8.8 MG/DL Alkaline Phosphatase 100 U/L Aspartate Amino Transf (AST/SGOT) 22 U/L Alanine Aminotransferase (ALT/SGPT) 23 U/L Total Bilirubin 0.4 MG/DL Sodium Level 137 MEQ/L Potassium Level 4.0 MEQ/L Chloride Level 103 MEQ/L Carbon Dioxide Level 24.4 MEQ/L Anion Gap 10 MEQ/L Estimat Glomerular Filtration Rate 59 ML/MIN Troponin I LESS THAN 0.02 NG/ML Urine Color YELLOW Urine Turbidity HAZY Urine pH 5.5 Urine Specific [place] 1.026 Urine Protein 30 mg/dL Urine Glucose (UA) NEG mg/dL Urine Ketones NEG mg/dL Urine Occult Blood NEG Urine Nitrite NEG Urine Bilirubin NEG Urine Urobilinogen 2.0 MG/DL Urine Leukocyte Esterase NEG Urine RBC 1 /hpf Urine WBC LESS THAN 1 /hpf Urine Hyaline Casts 2 /lpf Microscopic Urinalysis Comment CULT NOT INDICATED MDM Medical Decision Making Medical Screen Exam Complete: Yes Emergency Medical Condition: Yes Differential Diagnosis ileus from bed bound status and lack of movement , vs obstructon vs UTI urosepsis other paralytic ileus Narrative Course Patient has a CAT scan that shows thickened bowel wall but no specific findings patient has chronic ileus from her CVA prior with paralytic ileus from time to time patient is urine is negative all the labs are negative and she will be discharged back home hospice nurse arranges transport and she is diagnosed with colitis NOS Diagnosis Primary Impression: Colitis Patient Instructions: Colitis (ED), General Instructions Disposition: 01 DISCHARGE HOME Condition: Ayaan Wilkes MD Aug 23, 2017 23:59
[2017-08-24] VITALS: BP 167/73; PULSE 76; RESP 20; O2SAT 96
[2017-08-24] MEDS ORDERED: IOHEXOL 350 MG/ML 10 ML VIAL (for RAD DIAG) IVCONTRAST ONE (00:41)
--- NOTE | 2017-08-24 01:38 | RADRPT ---
EXAM DATE/TIME: 08/24/2017 00:22 [facility] COMPARISON: No previous studies available for comparison. INDICATIONS : Diffuse abdominal pain and distention. IV CONTRAST: 100 cc Omnipaque 350 (iohexol) IV ORAL CONTRAST: Prescribed oral contrast ingested. RADIATION DOSE: 6.64 CTDIvol (mGy) MEDICAL HISTORY : Gastroesophageal reflux disease. Colon cancer. Breast cancer. SURGICAL HISTORY : Non-responsive. Cholecystectomy. Appendectomy. Bowel resection. Right mastectomy. ENCOUNTER: Initial ACUITY: 3 days PAIN SCALE: 7/10 LOCATION: Abdomen. TECHNIQUE: Volumetric scanning of the abdomen and pelvis was performed. Using automated exposure control and ad justment of the mA and/or kV according to patient size, radiation dose was kept as low as reasonably achievable to obtain optimal diagnostic quality images. DICOM format image data is available electro nically for review and comparison. FINDINGS: LOWER LUNGS: The visualized lower lungs are clear. LIVER: Status post cholecystectomy. Liver within normal limits. SPLEEN: Normal size without lesion. PANCREAS: Within normal limits. KIDNEYS: Bilateral renal cortical scarring. No evidence of hydronephrosis. ADRENAL GLANDS: Within normal limits. VASCULAR: Diffuse arterial calcification. No evidence of aneurysm. BOWEL/MESENTERY: Diffuse circumferential wall thickening of the cecum and ascending colon. Nonspecific rectal wall thi ckening. Appendix not identified. No evidence of pneumatosis or free air. No free fluid. No bowel dil atation. ABDOMINAL WALL: Within normal limits. RETROPERITONEUM: There is no lymphadenopathy. BLADDER: No wall thickening or mass. REPRODUCTIVE: Within normal limits. INGUINAL: There is no lymphadenopathy or hernia. MUSCULOSKELETAL: Prominent degenerative findings of the lumbar spine. Diffuse bone demineralization. CONCLUSION: Nonspecific circumferential wall thickening of the cecum and the rectum. Differential diagnosis inclu gerda infection, inflammatory bowel disease, and ischemia. No evidence of bowel wall pneumatosis or jigar e air. Diffuse atherosclerotic disease is noted the proximal SMA is severely calcified. The proximal JEREMÍAS is not visualized. Andrea Sanchez MD on August 24, 2017 at 1:28 Board Certified Radiologist. This report was verified electronically.
[2017-08-24] MEDS ORDERED: SODIUM CHLORID 0.9% 500 ML INJ 500 ML IV ONE (02:15)
[2017-08-24] MEDS ORDERED: HYDROmorphone HCL PF 1 MG/ML VIAL IV PUSH ONE (03:45)
[2017-08-24] MEDS ORDERED: HYDROmorphone HCL PF 2 MG/ML VIAL ONE (03:50)
[2017-08-24 03:59] VITALS: BP 144/79; PULSE 72; RESP 18; O2SAT 97
== END 2017-08-24 04:26 | disposition home or self-care (01) ==
LOC: NEPE 18:51
DX: K52.9 Noninfective gastroenteritis and colitis, unspecified (principal); E78.00 Pure hypercholesterolemia, unspecified; I10 Essential (primary) hypertension; K21.9 Gastro-esophageal reflux disease without esophagitis; I69.351 Hemiplegia and hemiparesis following cerebral infarction affecting right dominant side; I69.398 Other sequelae of cerebral infarction; K56.0 Paralytic ileus; Z85.038 Personal history of other malignant neoplasm of large intestine; Z85.3 Personal history of malignant neoplasm of breast
CPT/HCPCS: 71045; 74018; 74177; 80053; 81001; 84484; 85025; 96361; 96374; 96375; 99284; J1170; J2405; J7040; Q9963; Q9967

== ENCOUNTER 2017-09-17 23:45 | Observation (INO) | payer MEDICARE ==
[~2017-09-17] VITALS: Ht 162.6 cm; Wt 50.0 kg
[~2017-09-17 23:45] MED LIST changes: +AMLO5TAB2 PO; -BISA10SU3 RECTAL; +DILA4TAB10 PO; -DOCU100C15 PO; +LACT10SO PO; -LIDO4CRE5 RECTAL; -LYRI50CA PO; -MACR100C2 PO; -MAGN100T2 PO; +METO1TAB9 PO; -METO50TA PO; +OMEP20TA93 PO; -PROT40TA PO; -QUET1TAB7 PO; +SENN1TAB PO; +SULF1TAB23 PO; -TRAM50TA PO; -[UNRECOGNIZED DRUG - CODE] SL
[2017-09-17 23:50] VITALS: BP 157/67; PULSE 69; RESP 16; TEMP 97.2; O2SAT 98
[2017-09-18] MEDS ORDERED: SODIUM CHLORIDE 0.9% FLUSH 10 ML FLUSH IVF PRN
--- NOTE | 2017-09-18 00:02 | PD ---
HPI Chief Complaint: Possible seizure Time Seen by Provider: 23:58 Travel History International Travel<30 days: No Contact w/Intl Traveler<30days: No History of Present Illness HPI 86-year-old female patient with history of previous stroke with left-sided paralysis, left foot gangrene, presents to the ER today brought in by EMS because her daughter states that she thinks she had a seizure today, and patient appears to be drooling out of the left side of her mouth, appears more disoriented. Patient is oriented 2, currently complaining of left foot pain, but could not give me more history. Modifying Factors: None Associated Signs & Symptoms: Possible seizure Risk Factors: Elderly, dementia PFSH Past Medical History Hx Anticoagulant Therapy: Yes (ASPIRIN) Arthritis: Yes Asthma: No Autoimmune Disease: No Anxiety: No Depression: No Heart Rhythm Problems: No Cancer: Yes (Colon, Right breast) Cardiovascular Problems: Yes High Cholesterol: Yes Chemotherapy: Yes (ORAL) Chest Pain: No Congestive Heart Failure: No COPD: No Cerebrovascular Accident: Yes (LEFT SIDED WEAKNESS) Diabetes: No Diminished Hearing: No Endocrine: No Gastrointestinal Disorders: Yes (Colon cancer) GERD: Yes Genitourinary: Yes Headaches: No Hepatitis: No Hiatal Hernia: Yes Heparin Induced Thrombocytopen: No Hypertension: Yes Immune Disorder: No Implanted Vascular Access Dvce: Yes Kidney Stones: No Musculoskeletal: Yes Neurologic: Yes (Stroke 7..16, NEUROPATHY) Psychiatric: No Reproductive: No Respiratory: No Migraines: No Radiation Therapy: No Renal Failure: No Seizures: No Sickle Cell Disease: No Sleep Apnea: No Thyroid Disease: No Ulcer: No Menopausal: Yes : 6 Para: 5 Miscarriage: 1 Past Surgical History Abdominal Surgery: Yes (BOWEL RESECTION, AHMET.) AICD: No Appendectomy: Yes Arteriovenous Shunt: No Body Medical Devices: Left wrist Cardiac Surgery: No Section: No Cholecystectomy: Yes Ear Surgery: No Endocrine Surgery: No Eye Surgery: Yes (BILATERAL CATARACT REMOVAL ) Genitourinary Surgery: No Gynecologic Surgery: Yes (RIGHT MASTECTOMY,) Insulin Pump: No Joint Replacement: Yes (LEFT WRIST METAL ) Neurologic Surgery: No Oral Surgery: No Pacemaker: No Thoracic Surgery: Yes Other Surgery: Yes (Gallbladder, Right Masectomy, Left wrist) Social History Alcohol Use: No Tobacco Use: No Substance Use: No Allergies-Medications (Allergen,Severity, Reaction): Coded Allergies: enoxaparin (Unverified Adverse Reaction, Severe, 09/18/17) CAUSED THROMBOSIS heparin (porcine) (Unverified Adverse Reaction, Severe, 09/18/17) CAUSED THROMBOSIS Reported Meds & Prescriptions Reported Meds & Active Scripts Active Reported Lactulose Liq (Lactulose) 10 Gm/15 Ml Soln 30 Ml PO DAILY Omeprazole 20 Mg Tab 20 Mg PO DAILY Metoprolol Succinate ER 24 HR (Metoprolol Succinate) 50 Mg Tab 50 Mg PO DAILY Amlodipine (Amlodipine Besylate) 5 Mg Tab 5 Mg PO DAILY Senna-Plus (Sennosides-Docusate Sodium) 8.6-50 Mg Tab 4 Tab PO BID Dilaudid (Hydromorphone HCl) 4 Mg Tab 4 Mg PO Q4H PRN Atorvastatin (Atorvastatin Calcium) 40 Mg Tab 40 Mg PO HS Aspirin 325 Mg Tab 325 Mg PO DAILY Review of Systems ROS Limitations: Altered Mental Status Physical Exam Narrative GENERAL: Well-developed elderly female patient currently and mild distress. Awake, alert, not oriented. SKIN: Focused skin assessment warm/dry. HEAD: Atraumatic. Normocephalic. EYES: Pupils equal and round. No scleral icterus. No injection or drainage. ENT: No nasal bleeding or discharge. Mucous membranes pink and moist. NECK: Trachea midline. No JVD. CARDIOVASCULAR: Regular rate and rhythm. No murmur appreciated. RESPIRATORY: No accessory muscle use. Clear to auscultation. Breath sounds equal bilaterally. GASTROINTESTINAL: Abdomen soft, non-tender, nondistended. Hepatic and splenic margins not palpable. MUSCULOSKELETAL: No obvious deformities. No clubbing. No cyanosis. No edema. Left foot with dry gangrene in all the toes, and dark eschar on the left first metatarsal area. NEUROLOGICAL: Awake and alert. Left facial droop. Left-sided paralysis. PSYCHIATRIC: Appropriate mood and affect; insight and judgment poor. Data Data Last Documented VS Vital Signs Date Time Temp Pulse Resp B/P (MAP) Pulse Ox O2 Delivery O2 Flow Rate FiO2 09/17/17 23:50 97.2 69 16 157/67 (97) 98 Orders Orders Complete Blood Count With Diff (09/17/17 23:58) Blood Culture (09/17/17 23:58) Electrocardiogram (09/17/17 ) Ct Brain W/O Iv Contrast(Rout) (09/17/17 ) Blood Glucose (09/17/17 23:58) Ecg Monitoring (09/17/17 23:58) Iv Access Insert/Monitor (09/17/17 23:58) Oximetry (09/17/17 23:58) Comprehensive Metabolic Panel (09/17/17 23:58) Sodium Chloride 0.9% Flush (Ns Flush) (09/18/17 00:00) Urinalysis - C+S If Indicated (09/17/17 23:58) Cath For Specimen (09/17/17 23:58) Urine Culture (09/18/17 00:40) Sodium Chlorid 0.9% 500 Ml Inj (Ns 500 M (09/18/17 01:45) Morphine Inj (Morphine Inj) (09/18/17 01:45) Admit Order (Ed Use Only) (09/18/17 02:21) Labs Laboratory Tests Test 09/18/17 00:17 09/18/17 00:40 White Blood Count 5.9 TH/MM3 Red Blood Count 2.92 MIL/MM3 Hemoglobin 9.2 GM/DL Hematocrit 27.1 % Mean Corpuscular Volume 92.6 FL Mean Corpuscular Hemoglobin 31.5 PG Mean Corpuscular Hemoglobin Concent 34.0 % Red Cell Distribution Width 17.1 % Platelet Count 215 TH/MM3 Mean Platelet Volume 7.5 FL Neutrophils (%) (Auto) 45.0 % Lymphocytes (%) (Auto) 40.8 % Monocytes (%) (Auto) 9.0 % Eosinophils (%) (Auto) 4.4 % Basophils (%) (Auto) 0.8 % Neutrophils # (Auto) 2.7 TH/MM3 Lymphocytes # (Auto) 2.4 TH/MM3 Monocytes # (Auto) 0.5 TH/MM3 Eosinophils # (Auto) 0.3 TH/MM3 Basophils # (Auto) 0.0 TH/MM3 CBC Comment DIFF FINAL Differential Comment Blood Urea Nitrogen 23 MG/DL Creatinine 0.72 MG/DL Random Glucose 111 MG/DL Total Protein 6.1 GM/DL Albumin 2.2 GM/DL Calcium Level 8.4 MG/DL Alkaline Phosphatase 55 U/L Aspartate Amino Transf (AST/SGOT) 16 U/L Alanine Aminotransferase (ALT/SGPT) 10 U/L Total Bilirubin 0.3 MG/DL Sodium Level 143 MEQ/L Potassium Level 3.9 MEQ/L Chloride Level 110 MEQ/L Carbon Dioxide Level 25.3 MEQ/L Anion Gap 8 MEQ/L Estimat Glomerular Filtration Rate 77 ML/MIN Urine Color YELLOW Urine Turbidity CLEAR Urine pH 5.0 Urine Specific Foster 1.023 Urine Protein TRACE mg/dL Urine Glucose (UA) NEG mg/dL Urine Ketones NEG mg/dL Urine Occult Blood NEG Urine Nitrite NEG Urine Bilirubin NEG Urine Urobilinogen 2.0 MG/DL Urine Leukocyte Esterase TRACE Urine RBC 1 /hpf Urine WBC 2 /hpf Urine Squamous Epithelial Cells <1 /hpf Urine Calcium Oxalate Crystals OCC /hpf Urine Bacteria OCC /hpf Urine Hyaline Casts 3 /lpf Urine Mucus FEW /lpf Microscopic Urinalysis Comment CATH-CULTURE IND MDM Medical Decision Making Medical Screen Exam Complete: Yes Emergency Medical Condition: Yes Medical Record Reviewed: Yes Interpretation(s) Laboratory Tests Test 09/18/17 00:17 09/18/17 00:40 Red Blood Count 2.92 MIL/MM3 (4.00-5.30) Hemoglobin 9.2 GM/DL (11.6-15.3) Hematocrit 27.1 % (35.0-46.0) Monocytes (%) (Auto) 9.0 % (0.0-8.0) Eosinophils (%) (Auto) 4.4 % (0.0-4.0) Blood Urea Nitrogen 23 MG/DL (7-18) Random Glucose 111 MG/DL (74-106) Total Protein 6.1 GM/DL (6.4-8.2) Albumin 2.2 GM/DL (3.4-5.0) Calcium Level 8.4 MG/DL (8.5-10.1) Chloride Level 110 MEQ/L (98-107) Estimat Glomerular Filtration Rate 77 ML/MIN (>89) Urine Leukocyte Esterase TRACE (NEG) Urine Calcium Oxalate Crystals OCC /hpf (NONE) Urine Bacteria OCC /hpf (NONE) Urine Mucus FEW /lpf (OCC) Last [address] 09/17/17 0000 Signed Impressions: Service Date/Time: Monday, September 18, 2017 01:01 - CONCLUSION: 1. Chronic changes with an old right MCA infarct. Dystrophic type calcifications in the infarct bed. Moderately severe periventricular small vessel ischemic demyelination. 2. Small air-fluid level in the maxillary antra could represent a mild acute sinusitis. 3. No acute intracranial process. Mg Salas MD Differential Diagnosis New onset seizure versus acute intracranial processes versus CVA Narrative Course CT did not show any signs of acute processes. Lab work was fairly unremarkable. Patient has no new focal deficits according to patient's daughter. At this point, my plan would be to admit her for further evaluation of what appears to be a new onset seizure. It is unclear exactly what happened at this point. Case is discussed with Dr. Dodge for admission. Diagnosis Primary Impression: New onset seizure Admitting Information Admitting Physician Requests: Admit Sylvia Shelby MD September 18, 2017 00:02
[2017-09-18 00:39] LABS: AUTOMATED NEUTROPHIL # 2.7 TH/MM3 (1.8-7.7); BASOPHIL % 0.8 % (0.0-2.0); EOSINOPHIL # 0.3 TH/MM3 (0-0.4); EOSINOPHIL % 4.4 % (0.0-4.0); HEMATOCRIT 27.1 % (35.0-46.0); HEMOGLOBIN 9.2 GM/DL (11.6-15.3); LYMPH % 40.8 % (9.0-44.0); LYMPHOCYTE # 2.4 TH/MM3 (1.0-4.8); MEAN CELL VOLUME 92.6 FL (80.0-100.0); MEAN CORPUSCULAR HEMOGLOBIN 31.5 PG (27.0-34.0); MEAN PLATELET VOLUME 7.5 FL (7.0-11.0); MONOCYTE # 0.5 TH/MM3 (0-0.9); PLATELET COUNT 215 TH/MM3 (150-450); RED BLOOD COUNT 2.92 MIL/MM3 (4.00-5.30); RED CELL DISTRIBUTION WIDTH 17.1 % (11.6-17.2); WHITE BLOOD COUNT 5.9 TH/MM3 (4.0-11.0)
[2017-09-18 00:56] LABS: ALBUMIN 2.2 GM/DL (3.4-5.0); AST (GOT) 16 U/L (15-37); BICARBONATE 25.3 MEQ/L (21.0-32.0); BLOOD UREA NITROGEN 23 MG/DL (7-18); CALCIUM 8.4 MG/DL (8.5-10.1); CHLORIDE 110 MEQ/L (98-107); CREATININE 0.72 MG/DL (0.50-1.00); GLOMERULAR FILTRATION RATE 77 ML/MIN (>89); GLUCOSE,RANDOM 111 MG/DL (74-106); SODIUM (NA) 143 MEQ/L (136-145)
[2017-09-18 00:59] LABS: ALKALINE PHOSPHATASE 55 U/L (45-117); ALT (GPT) 10 U/L (10-53); TOTAL BILIRUBIN ADULT 0.3 MG/DL (0.2-1.0); TOTAL PROTEIN 6.1 GM/DL (6.4-8.2)
[2017-09-18 01:23] LABS: BACTERIA, URINE OCC /hpf; BILIRUBIN, URINE NEG (NEG); BLOOD, URINE NEG (NEG); CALCIUM OXALATE CRYSTALS,URINE OCC /hpf; GLUCOSE,URINE NEG (NEG); HYALINE CAST, URINE 3 /lpf (RARE); KETONE, URINE NEG (NEG); MUCUS URINE FEW /lpf (OCC); NITRITE,URINE NEG (NEG); SQUAMOUS EPITHELIAL CELL URINE <1 /hpf (0-5); URINE COLOR YELLOW (YELLW/STRAW); URINE LEUKOCYTE ESTERASE TRACE (NEG)
--- NOTE | 2017-09-18 01:33 | RADRPT ---
EXAM DATE/TIME: 09/18/2017 01:01 [facility] COMPARISON: CT BRAIN W/O CONTRAST, December 24, 2015, 13:59. INDICATIONS : Altered mental status. RADIATION DOSE: 56.35 CTDIvol (mGy) ; Patient motion MEDICAL HISTORY : Cerebrovascular disease. Carcinoma, colon. Carcinoma, breast.GERD SURGICAL HISTORY : Appendectomy. Cholecystectomy.Colon resection. ENCOUNTER: Subsequent ACUITY: 1 day PAIN SCALE: Non-responsive LOCATION: cranial TECHNIQUE: Multiple contiguous axial images were obtained of the head. Using automated exposure control and adj ustment of the mA and/or kV according to patient size, radiation dose was kept as low as reasonably a chievable to obtain optimal diagnostic quality images. DICOM format image data is available electro nically for review and comparison. FINDINGS: CEREBRUM: Large, old right MCA infarct with dystrophic type calcification in the infarct bed. Moderately severe periventricular small vessel ischemic demyelination. No acute intracranial process or mass lesion. No extra-axial fluid collections are seen. POSTERIOR FOSSA: The cerebellum and brainstem are intact. The 4th ventricle is midline. The cerebellopontine angle i s unremarkable. EXTRACRANIAL: The visualized portion of the orbits is intact. Small air-fluid level in the left maxillary antra SKULL: The calvaria is intact. No evidence of skull fracture. CONCLUSION: 1. Chronic changes with an old right MCA infarct. Dystrophic type calcifications in the infarct bed. Moderately severe periventricular small vessel ischemic demyelination. 2. Small air-fluid level in the maxillary antra could represent a mild acute sinusitis. 3. No acute intracranial process. Mg Salas MD on September 18, 2017 at 1:30 Board Certified Radiologist. This report was verified electronically.
[2017-09-18] MEDS ORDERED: MORPHINE SULFATE 2 MG/ML SYRINGE IV PUSH ONE (01:45)
[2017-09-18] MEDS ORDERED: SODIUM CHLORID 0.9% 500 ML INJ 500 ML IV ONE (01:45)
[2017-09-18 03:52] VITALS: BP 137/61; PULSE 65; RESP 14; O2SAT 99
[2017-09-18] MEDS ORDERED: NALOXONE HCL 0.4 MG/ML AMP IV PUSH PRN (04:00)
[2017-09-18] MEDS ORDERED: SODIUM CHLORIDE 0.9% FLUSH 10 ML FLUSH IV FLUSH PRN (04:00)
[2017-09-18] MEDS ORDERED: ONDANSETRON HCL 4 MG/2 ML VIAL IVP PRN (04:00)
[2017-09-18] MEDS ORDERED: ACETAMINOPHEN 325 MG TAB PO PRN (04:00)
--- NOTE | 2017-09-18 04:46 | HHI.HP ---
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 The patient's daughter, who is her primary caregiver, reports that she was giving the patient her medication around 1030 yesterday evening when the patient had an episode where her eyes rolled back in her head, her jaw locked, her right arm flexed and she foamed at the mouth for approximately 10 minutes. Per the daughter's report the patient was nonresponsive during the episode and was confused worse than baseline upon completion of the episode. She has no prior history of seizure. During my examination, the patient has returned to her baseline. She complains of pain in her bilateral shoulders and around her buttock region. These are chronic complaints for her. The patient denies any chest pain or shortness of breath. No headache. No nausea/vomiting/diarrhea/abdominal pain. Strength and movement at baseline. No fevers/chills. 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, dementia, history of breast cancer, history of colon cancer, hypertension, hyperlipidemia and history of left foot dry gangrene Past Surgical History Left wrist Cholecystectomy Right mastectomy Appendectomy Partial colectomy Reported Medications Reported Meds & Active Scripts Active Reported Lactulose Liq (Lactulose) 10 Gm/15 Ml Soln 30 Ml PO DAILY Omeprazole 20 Mg Tab 20 Mg PO DAILY Metoprolol Succinate ER 24 HR (Metoprolol Succinate) 50 Mg Tab 50 Mg PO DAILY Amlodipine (Amlodipine Besylate) 5 Mg Tab 5 Mg PO DAILY Senna-Plus (Sennosides-Docusate Sodium) 8.6-50 Mg Tab 4 Tab PO BID Dilaudid (Hydromorphone HCl) 4 Mg Tab 4 Mg PO Q4H PRN Atorvastatin (Atorvastatin Calcium) 40 Mg Tab 40 Mg PO HS Aspirin 325 Mg Tab 325 Mg PO DAILY Allergies: Coded Allergies: enoxaparin (Unverified Adverse Reaction, Severe, 09/18/17) CAUSED THROMBOSIS heparin (porcine) (Unverified Adverse Reaction, Severe, 09/18/17) CAUSED THROMBOSIS Family History Mother with hyperlipidemia Physical Exam Vital Signs Vital Signs Date Time Temp Pulse Resp B/P (MAP) Pulse Ox O2 Delivery O2 Flow Rate FiO2 09/18/17 03:52 65 14 137/61 (86) 99 Room Air 09/17/17 23:50 97.2 69 16 157/67 (97) 98 Physical Exam GENERAL: female lying in bed SKIN: Left foot with dry gangrene of the medial toes extending to the metatarsal heads. Per patient's daughter, sacral decubitus ulcer present however unable to examine secondary to patient's pain. HEAD: Atraumatic. Normocephalic. No temporal or scalp tenderness. EYES: Pupils equal round and reactive. Extraocular motions intact. No scleral icterus. No injection or drainage. ENT: Nose without bleeding, purulent drainage or septal hematoma. Throat without erythema, tonsillar hypertrophy or exudate. Uvula midline. Airway patent. NECK: Trachea midline. No JVD or lymphadenopathy. Supple, nontender, no meningeal signs. CARDIOVASCULAR: Regular rate and rhythm without murmurs, gallops, or rubs. RESPIRATORY: Clear to auscultation. Breath sounds equal bilaterally. No wheezes , rales, or rhonchi. GASTROINTESTINAL: Abdomen soft, non-tender, nondistended. No hepato-splenomegaly , or palpable masses. No guarding. MUSCULOSKELETAL: Extremities without clubbing, cyanosis, or edema. No joint tenderness, effusion, or edema noted. No calf tenderness. NEUROLOGICAL: Awake and alert. Cranial nerves II through XII intact. Motor and sensory grossly within normal limits. Normal speech. Laboratory Laboratory Tests Test 09/18/17 00:17 09/18/17 00:40 White Blood Count 5.9 Red Blood Count 2.92 Hemoglobin 9.2 Hematocrit 27.1 Mean Corpuscular Volume 92.6 Mean Corpuscular Hemoglobin 31.5 Mean Corpuscular Hemoglobin Concent 34.0 Red Cell Distribution Width 17.1 Platelet Count 215 Mean Platelet Volume 7.5 Neutrophils (%) (Auto) 45.0 Lymphocytes (%) (Auto) 40.8 Monocytes (%) (Auto) 9.0 Eosinophils (%) (Auto) 4.4 Basophils (%) (Auto) 0.8 Neutrophils # (Auto) 2.7 Lymphocytes # (Auto) 2.4 Monocytes # (Auto) 0.5 Eosinophils # (Auto) 0.3 Basophils # (Auto) 0.0 CBC Comment DIFF FINAL Differential Comment Blood Urea Nitrogen 23 Creatinine 0.72 Random Glucose 111 Total Protein 6.1 Albumin 2.2 Calcium Level 8.4 Alkaline Phosphatase 55 Aspartate Amino Transf (AST/SGOT) 16 Alanine Aminotransferase (ALT/SGPT) 10 Total Bilirubin 0.3 Sodium Level 143 Potassium Level 3.9 Chloride Level 110 Carbon Dioxide Level 25.3 Anion Gap 8 Estimat Glomerular Filtration Rate 77 Urine Color YELLOW Urine Turbidity CLEAR Urine pH 5.0 Urine Specific Astor 1.023 Urine Protein TRACE Urine Glucose (UA) NEG Urine Ketones NEG Urine Occult Blood NEG Urine Nitrite NEG Urine Bilirubin NEG Urine Urobilinogen 2.0 Urine Leukocyte Esterase TRACE Urine RBC 1 Urine WBC 2 Urine Squamous Epithelial Cells <1 Urine Calcium Oxalate Crystals OCC Urine Bacteria OCC Urine Hyaline Casts 3 Urine Mucus FEW Microscopic Urinalysis Comment CATH-CULTURE IND Date/Time Source Procedure Growth Status 09/18/17 00:50 Blood Peripheral Aerobic Blood Culture Pending Received 09/18/17 00:50 Blood Peripheral Anaerobic Blood Culture Pending Received 09/18/17 00:40 Urine Catheterized Urine Urine Culture Pending Received Result Diagram: 09/18/17 0017 09/18/17 0017 Caprini VTE Risk Assessment Caprini VTE Risk Assessment: Mod/High Risk (score >= 2) Caprini Risk Assessment Model Point Value = 1 Point Value = 2 Point Value = 3 Point Value = 5 Age 41-60 Minor surgery BMI > 25 kg/m2 Swollen legs Varicose veins or History of unexplained or recurrent spontaneous Oral contraceptives or hormone replacement Sepsis (< 1 month) Serious lung disease, including pneumonia (< 1 month) Abnormal pulmonary function Acute myocardial infarction Congestive heart failure (< 1 month) History of inflammatory bowel disease Medical patient at bed rest Age 61-74 Arthroscopic surgery Major open surgery (> 45 min) Laparoscopic surgery (> 45 min) Malignancy Confined to bed (> 72 hours) Immobilizing plaster cast Central venous access Age >= 75 History of VTE Family history of VTE Factor V Leiden Prothrombin [id number] Lupus anticoagulant Anticardiolipin antibodies Elevated serum homocysteine Heparin-induced thrombocytopenia Other congenital or acquired thrombophilia Stroke (< 1 month) Elective arthroplasty Hip, pelvis, or leg fracture Acute spinal cord injury (< 1 month) Prophylaxis Regimen Total Risk Factor Score Risk Level Prophylaxis Regimen 0-1 Low Early ambulation 2 Moderate Order ONE of the following: *Sequential Compression Device (SCD) *Heparin 5000 units SQ BID 3-4 Higher Order ONE of the following medications: *Heparin 5000 units SQ TID *Enoxaparin/Lovenox 40 mg SQ daily (WT < 150 kg, CrCl > 30 mL/min) *Enoxaparin/Lovenox 30 mg SQ daily (WT < 150 kg, CrCl > 10-29 mL/min) *Enoxaparin/Lovenox 30 mg SQ BID (WT < 150 kg, CrCl > 30 mL/min) AND/OR *Sequential Compression Device (SCD) 5 or more Highest Order ONE of the following medications: *Heparin 5000 units SQ TID (Preferred with Epidurals) *Enoxaparin/Lovenox 40 mg SQ daily (WT < 150 kg, CrCl > 30 mL/min) *Enoxaparin/Lovenox 30 mg SQ daily (WT < 150 kg, CrCl > 10-29 mL/min) *Enoxaparin/Lovenox 30 mg SQ BID (WT < 150 kg, CrCl > 30 mL/min) AND *Sequential Compression Device (SCD) Assessment and Plan Assessment and Plan Assessment/plan: 1. Possible seizure Patient with no known history of seizures EEG pending Neurology consulted, appreciate assistance Head CT negative for acute process 2. Dry gangrene Patient's manager packaging, Dr. Bob, consulted, appreciate recommendations Per patient's daughter the patient is not a surgical candidate given her history of HIT/CVA 3. Bilateral shoulder pain/buttock pain Continue as needed p.o. Dilaudid as prescribed 4. Hypertension/hyperlipidemia Continue home medications 5. History of CVA Physical therapy consulted FEN Regular diet Electrolytes: monitor and replete prn Holding pharmacologic anticoagulation secondary to history of HIT Patient previously on hospice however patient's daughter wishes to remove patient from hospice and wants full care for her mother at this time. Estrella Dodge MD September 18, 2017 04:46
[2017-09-18 05:18] VITALS: BP 120/58; PULSE 66; RESP 16; TEMP 97.4; O2SAT 97
[2017-09-18] MEDS: HYDROmorphone HCL 4 MG TAB PO PRN ×3 (05:34→18:32)
[2017-09-18 08:06] VITALS: BP 129/63; PULSE 60; RESP 18; TEMP 97.5; O2SAT 99
--- NOTE | 2017-09-18 08:59 | PD.CONS ---
History of Present Illness Service Neurology Consult Requested By ER Reason for Consult new onset seizure Primary Care Physician Lucinda Randhawa MD History of Present Illness 86 y/o female with hx of stroke in 2016 presented to ER with witnessed seizure. Pt unable to give history. History obtained from chart and nurse. Pt was witnessed to have eyes roll back, flexing of right arm and foaming at the mouth. Per chart event lasted for 10 min. Pt is now back to her baseline. Has hx of dementia. Had previously been on hospice (Haleigh Kirby) Review of Systems Constitutional: Weakness Eye: Negative Except HPI Musculoskeletal: Muscle pain Neurologic: Confusion All other ROS: ROS reviewed as documented in chart (Haleigh Kirby) Past Family Social History Allergies: Coded Allergies: enoxaparin (Unverified Adverse Reaction, Severe, 09/18/17) CAUSED THROMBOSIS heparin (porcine) (Unverified Adverse Reaction, Severe, 09/18/17) CAUSED THROMBOSIS Past Medical History per nurse: CVA 2016 with left sided weakness, dementia, Past Surgical History per nurse right masectomy Active Ordered Medications Current Medications Medications (Trade) Dose Ordered Sig/Eduard Route Start Time Stop Time Status Last Admin (NS Flush) 2 ml UNSCH PRN IV FLUSH 09/18/17 04:00 (NS Flush) 2 ml BID IV FLUSH 09/18/17 09:00 (Tylenol) 650 mg Q4H PRN PO 09/18/17 04:00 (Zofran Inj) 4 mg Q6H PRN IVP 09/18/17 04:00 (Narcan Inj) 0.4 mg UNSCH PRN IV PUSH 09/18/17 04:00 (Norvasc) 5 mg DAILY PO 09/18/17 09:00 (Aspirin) 325 mg DAILY PO 09/18/17 09:00 (Lipitor) 40 mg HS PO 09/18/17 21:00 (Dilaudid) 4 mg Q4H PRN PO 09/18/17 04:00 09/18/17 05:34 (Toprol Xl) 50 mg DAILY PO 09/18/17 09:00 (Protonix) 20 mg DAILY PO 09/18/17 09:00 Family History unable to obtain Social History pt lives with her daughter, had previously been on hospice (Haleigh Kirby) Exam I&O / VS Vital Signs Date Time Temp Pulse Resp B/P (MAP) Pulse Ox O2 Delivery O2 Flow Rate FiO2 09/18/17 08:06 97.5 60 18 129/63 (85) 99 09/18/17 06:43 16 09/18/17 05:18 97.4 66 16 120/58 (78) 97 09/18/17 03:52 65 14 137/61 (86) 99 Room Air 09/17/17 23:50 97.2 69 16 157/67 (97) 98 General: No acute distress Eye: PERRL, EOMI Respiratory: Non-labored respirations Cardiology: Normal rate Exam Comments pt not alert to time or place, knows her name and current president, uncooperative with exam, notes generalized pain with light touch in all extremities, 2+ reflexes on right, refuses reflex testing on left, moves right upper and lower extremity against gravity, unable to move left hemibody, refuses testing for tone, gait withheld, mild left facial droop, EOMI, PERRL, (Haleigh Kirby) Review/Management Diagnosis new onset seizure with past hx of CVA/HIT Plan EEG pending, reviewed CT head results, start Keppra 500mg bid Diagnosis/Plan: (Haleigh Kirby) Diagnosis/Plan: (1) Seizure ICD Codes: R56.9 - Unspecified convulsions Status: Acute Plan: probably post-stroke related recs keppra eeg f/u mag, b12 level fall precautions d/c planning from neuro if eeg and pt stable overnight (2) Chronic ischemic right MCA stroke ICD Codes: I69.30 - Unspecified sequelae of cerebral infarction Status: Chronic (3) Vascular dementia ICD Codes: F01.50 - Vascular dementia without behavioral disturbance Status: Chronic (4) HTN (hypertension) ICD Codes: I10 - Essential (primary) hypertension Status: Chronic (Alton Florentino MD) Problem Qualifiers (1) Vascular dementia: Qualified Codes: F01.51 - Vascular dementia with behavioral disturbance (2) HTN (hypertension): Qualified Codes: I10 - Essential (primary) hypertension Haleigh Kirby September 18, 2017 08:59 Alton Florentino MD September 18, 2017 17:39
[2017-09-18] MEDS ORDERED: METOPROLOL SUCCINATE 50 MG EXTENDED RELEASE TAB PO SCH (09:00)
[2017-09-18] MEDS: SODIUM CHLORIDE 0.9% FLUSH 10 ML FLUSH IV FLUSH SCH ×2 (09:00→21:00)
[2017-09-18] MEDS ORDERED: ASPIRIN 325 MG TAB PO SCH (09:00)
[2017-09-18] MEDS ORDERED: PANTOPRAZOLE SOD 20 MG DELAYED RELEASE TAB PO SCH (09:00)
[2017-09-18] MEDS ORDERED: MORPHINE SULFATE 4 MG/ML INJ IV PUSH PRN (09:00)
--- NOTE | 2017-09-18 10:19 | HHI.PR ---
Subjective Remarks Follow-up for possible seizure activity. Patient is currently resting in bed. She complains of left lower extremity pain. No fever or chills. Granddaughter is at bedside. Objective Vitals Vital Signs Date Time Temp Pulse Resp B/P (MAP) Pulse Ox O2 Delivery O2 Flow Rate FiO2 09/18/17 08:06 97.5 60 18 129/63 (85) 99 09/18/17 06:43 16 09/18/17 05:18 97.4 66 16 120/58 (78) 97 09/18/17 03:52 65 14 137/61 (86) 99 Room Air 09/17/17 23:50 97.2 69 16 157/67 (97) 98 Result Diagram: 09/18/17 0017 09/18/17 0017 Imaging Last Impressions Head CT 09/17/17 0000 Signed Impressions: Service Date/Time: Monday, September 18, 2017 01:01 - CONCLUSION: 1. Chronic changes with an old right MCA infarct. Dystrophic type calcifications in the infarct bed. Moderately severe periventricular small vessel ischemic demyelination. 2. Small air-fluid level in the maxillary antra could represent a mild acute sinusitis. 3. No acute intracranial process. Mg Salas MD Objective Remarks GENERAL: Alert, NAD. SKIN: Warm and dry. HEAD: Normocephalic. EYES: No scleral icterus. No injection or drainage. NECK: Supple, trachea midline. No JVD or lymphadenopathy. CARDIOVASCULAR: Regular rate and rhythm without murmurs, gallops, or rubs. RESPIRATORY: Breath sounds equal bilaterally. No accessory muscle use. GASTROINTESTINAL: Abdomen soft, non-tender, nondistended. MUSCULOSKELETAL: No cyanosis, or edema. Significant pain on trying to move left lower extremity. BACK: Nontender without obvious deformity. No CVA tenderness. Procedures None A/P Problem List: (1) Seizure ICD Code: R56.9 - Unspecified convulsions (2) History of stroke ICD Code: Z86.73 - Personal history of transient ischemic attack (TIA), and cerebral infarction without residual deficits Assessment and Plan Ms. 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 Patient has a history of breast cancer, colon cancer. Probable seizure Hx of right MCA Stroke - Neurology evaluated patient. Started patient on Keppra. - EEG pending. Continue Aspirin 325mg Qday. Hypertension Hyperlipidemia -Continue amlodipine 5 mg daily, atorvastatin 40 mg nightly. -Continue Metoprolol succinate 50mg Qday. GERD - continue PPI. Sacral decubitus Wound care consulted. Will provide pain meds prior to wound care. Full code. Will consider pharmacological prophylaxis if >48 hrs of hospitalization expected. Jabier Arredondo DO September 18, 2017 10:19 am
[2017-09-18] MEDS: amLODIPine BESYLATE 5 MG TAB PO SCH (10:58)
[2017-09-18] MEDS: levETIRAcetam 500 MG TAB PO SCH ×2 (10:58→21:03)
[2017-09-18 12:43] VITALS: BP 113/56; PULSE 61; RESP 18; TEMP 96.3; O2SAT 96
--- NOTE | 2017-09-18 13:17 | PD.WCN.NOT ---
Wound Consult Description: Patient seen in G[facility] for evaluation of sacral decubitus per GIANA Way Communicated with: Dr Maria Elena Porter RN Recommendation: Strict 2 hour turns. No briefs. No cotton pads. Apply Calazime skin protectant paste for moisture incontinence. Use disposable ultrasorbs for moisture wicking. Additional Information: Patient seen in G[facility] for sacral decub evaluation. Patient was premedicated prior to repositioning patient as requested by GIA[address]. Patient was turned to her left side for assessment of sacrum, bilateral buttocks. There are no open areas noted. Blanching erythema is noted to sacrum. There are a few areas on the sacrum with scar tissue indicating previous wounds that have since closed. Skin is dry and intact to sacrum and bilateral buttocks. Anitha Parrish [facility] September 18, 2017 13:16
--- NOTE | 2017-09-18 14:25 | MB ---
cc: Nicole Pompa DPM DATE: 09/18/2017 CHIEF COMPLAINT: Left foot dry gangrene. HISTORY OF PRESENT ILLNESS: Ms. Cortes is an 86-year-old female patient known to my partner, Dr. Bob. She was seeing him for a stable dry gangrene until she was placed on hospice and stopped with his care. The patient is not communicating at this time. Information was obtained through her daughter. This visit, the patient had a traumatic incident with the left hallux nail and toenail was removed by gasfitter at her adult living facility. After that, she rapidly developed an infection and a gangrene. The infection was healed, but the gangrene was never resolved as the patient is not a surgical candidate for an amputation or for revascularization due to her heparin-induced stroke history. The patient was admitted yesterday due to a seizure. The patient's daughter states the foot is a source of irritation for the patient, but does not appear to be severely painful. 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 PAST SURGICAL HISTORY: Includes left wrist surgery, cholecystectomy, right mastectomy, appendectomy, partial colectomy. MEDICATIONS: Please see list. ALLERGIES: ENOXAPARIN, HEPARIN. FAMILY HISTORY: Noncontributory. SOCIAL HISTORY: The patient is going to be moving home with her daughter and . VITAL SIGNS: Temperature is 96.3, pulse 61, respiratory rate 18, blood pressure 113/57, pulse oximetry 96% O2 on room air. LABORATORY DATA: White count is 5.9, hemoglobin 9.2, hematocrit 27.1, platelets 215. Sodium 142, potassium 3.9, chloride 110, carbon dioxide 25.3, BUN 23, glucose 111. Blood cultures pending. PHYSICAL EXAMINATION: The patient has nonpalpable DP and PT pulses. Capillary refill time is less than 3 seconds on the right foot, but delayed on the left hallux. Gross sensation cannot be evaluated at this time, neither can manual muscle testing. The left foot has full-thickness dry gangrene circumferentially around the hallux and tracking in the dorsal aspect of the first metatarsal. There is no erythema, no drainage, no malodor. ASSESSMENT AND PLAN: Right foot dry gangrene, stable. 1. I agree with Dr. Bob's previous assessment, but unfortunately, the patient is not a surgical candidate. If she were to have surgery, she would likely need a [id number] amputation and would likely not be able to tolerate the anesthesia or the postoperative rehabilitation. 2. Suggest continued conservative care. Wound care orders placed for nursing staff. 3. Continue to monitor for any signs of infection. 4. I recommended following up outpatient with Dr. Bob for nail care. 5. Will continue to monitor the patient intermittently while in-house. Thank you for allowing me to be involved in this patient's care. MARYURI Galdamez/JERRI , 02:04 PM , 02:24 PM
[2017-09-18 16:12] VITALS: BP 127/60; PULSE 57; RESP 18; TEMP 96.7; O2SAT 99
--- NOTE | 2017-09-18 18:22 | MG ---
cc: Alpesh Jade MD EEG NUMBER: [id number] Some diffuse 5 Hz slowing is noted throughout the entire recording. Bifrontal muscle artifact is seen. At times, it looked like the slowing may be a little bit more in the right hemisphere than the left. Photic stimulation is performed without significant posterior driving. IMPRESSION: Diffuse slowing, at times more so on the right hemisphere than the left, and a right hemisphere lesion should be ruled out. No epileptiform or seizure activity, however, was noted. MD MARQUES Anderson/JERRI , 06:10 PM , 06:22 PM
[2017-09-18] MEDS: DEXTROSE 5%-LACTATED RING INJ 1,000 ML IV SCH (18:34)
[2017-09-18 19:26] LABS: MAGNESIUM 1.9 MG/DL (1.5-2.5)
[2017-09-18] MEDS ORDERED: ATORVASTATIN 40 MG TAB PO SCH (21:00)
[2017-09-18 21:46] VITALS: BP 109/62; PULSE 63; RESP 18; TEMP 97.7
[2017-09-19] VITALS (10 sets, daily range): BP systolic 101–130; BP diastolic 51–67; PULSE 58–78; RESP 16–18; TEMP 97.5–98; O2SAT 97–99
[2017-09-19] MEDS: DEXTROSE 5%-LACTATED RING INJ 1,000 ML IV SCH ×2 (03:10→15:05)
[2017-09-19] MEDS: SODIUM CHLORIDE 0.9% FLUSH 10 ML FLUSH IV FLUSH SCH (09:00)
[2017-09-19] MEDS ORDERED: ASPIRIN EC 81 MG TABEC PO SCH (09:00)
[2017-09-19] MEDS ORDERED: MULTIVITAMIN TAB PO SCH (09:00)
--- NOTE | 2017-09-19 09:14 | HHI.PR ---
Review/Management Diagnosis new onset seizure with past hx of CVA/HIT Diagnosis/Plan: (1) Seizure ICD Codes: R56.9 - Unspecified convulsions Status: Acute Plan: probably post-stroke related recs doing well on keppra eeg- no active sz's f/u mag, b12 level- nml fall precautions d/c planning from neuro today outpatient f/u (2) Chronic ischemic right MCA stroke ICD Codes: I69.30 - Unspecified sequelae of cerebral infarction Status: Chronic (3) Vascular dementia ICD Codes: F01.50 - Vascular dementia without behavioral disturbance Status: Chronic (4) HTN (hypertension) ICD Codes: I10 - Essential (primary) hypertension Status: Chronic Subjective Subjective Comments No acute events reported caregiver at bedside. states pt requires assistance with all adl's No headache No chest pain No dyspnea Active Medications Current Medications Medications (Trade) Dose Ordered Sig/Eduard Route Start Time Stop Time Status Last Admin (NS Flush) 2 ml UNSCH PRN IV FLUSH 09/18/17 04:00 (NS Flush) 2 ml BID IV FLUSH 09/18/17 09:00 09/18/17 09:00 (Tylenol) 650 mg Q4H PRN PO 09/18/17 04:00 (Zofran Inj) 4 mg Q6H PRN IVP 09/18/17 04:00 (Narcan Inj) 0.4 mg UNSCH PRN IV PUSH 09/18/17 04:00 (Norvasc) 5 mg DAILY PO 09/18/17 09:00 09/18/17 10:58 (Lipitor) 40 mg HS PO 09/18/17 21:00 09/18/17 21:03 (Dilaudid) 4 mg Q4H PRN PO 09/18/17 04:00 09/18/17 18:32 (Morphine Inj) 4 mg Q3H PRN IV PUSH 09/18/17 09:00 09/18/17 12:52 (Keppra) 500 mg Q12HR PO 09/18/17 09:00 09/18/17 21:03 (Ecotrin Ec) 81 mg DAILY PO 09/19/17 09:00 Dextrose/Lactated Ringer's 1,000 ml @ 84 mls/hr [id number] IV 09/18/17 15:15 09/19/17 03:10 (Theragran) 1 tab DAILY PO 09/19/17 09:00 Allergies Allergies Coded Allergies enoxaparin (Unverified Adverse Reaction, Severe, 09/18/17) heparin (porcine) (Unverified Adverse Reaction, Severe, 09/18/17) Review of Systems Constitutional: Weakness Eye: Negative Except HPI Musculoskeletal: Muscle pain Neurologic: Confusion All other ROS: ROS reviewed as documented in chart Exam I&O / VS Vital Signs Date Time Temp Pulse Resp B/P (MAP) Pulse Ox O2 Delivery O2 Flow Rate FiO2 09/19/17 07:25 97.7 61 16 122/60 (80) 98 09/19/17 05:51 98.0 64 18 130/60 (83) 98 09/19/17 04:01 60 09/19/17 01:50 97.7 62 18 101/51 (68) 98 09/19/17 00:01 58 09/18/17 21:46 97.7 63 18 109/62 (78) 09/18/17 21:02 16 09/18/17 16:12 96.7 57 18 127/60 (82) 99 09/18/17 12:57 20 09/18/17 12:43 96.3 61 18 113/56 (75) 96 General: No acute distress Eye: PERRL, EOMI Respiratory: Non-labored respirations Cardiology: Normal rate Neurologic: Alert Psychiatric: Cooperative Exam Comments ox to self, follows, left spastic hemiplegia Objective Micro and Labs Date/Time Source Procedure Growth Status 09/18/17 00:50 Blood Peripheral Aerobic Blood Culture Pending Received 09/18/17 00:50 Blood Peripheral Anaerobic Blood Culture Pending Received 09/18/17 00:40 Urine Catheterized Urine Urine Culture Pending Received Problem Qualifiers (1) Vascular dementia: Qualified Codes: F01.51 - Vascular dementia with behavioral disturbance (2) HTN (hypertension): Qualified Codes: I10 - Essential (primary) hypertension Alton Florentino MD September 19, 2017 09:14
--- NOTE | 2017-09-19 09:57 | HHI.FF ---
Face to Face Verification Diagnosis: (1) Seizure (2) HTN (hypertension) Physical Therapy Order: Evaluate and Treat, Improve ambulation, Strength and gait training Occupational Therapy Order: Evaluate and Treat, Improve ADL, Gross motor coordination, Fine motor coordination Home Health Nursing Order: Medical education Wound care and dressing changes Nursing assessment with vital signs Home Health Aide Order: To Assist In: Bathing and personal care, institutional asset manager and meal prep I have seen patient Raiza Cortes on 09/19/17. My clinical findings support the need for the requested home health care services because: Ltd mobility - disease progression Deconditioned w/ increased weakness Limited ability to care for self Need for psychosocial assistance Impaired cognition/judgement High risk of falls Infection w/ risk of complications I certify that my clinical findings support that this patient is homebound because: Impaired cognitive ability/safety Unsteady gait/balance Unsafe to leave home unassisted Need for psychosocial assistance Tsk-ypyqpqjgmw-pknyqoip bed/chair Unable to use public transportation Jabier Arredondo DO September 19, 2017 9:57 am
[2017-09-19] MEDS: levETIRAcetam 500 MG TAB PO SCH (10:12)
[2017-09-19] MEDS: amLODIPine BESYLATE 5 MG TAB PO SCH (10:12)
[2017-09-19] MEDS: HYDROmorphone HCL 4 MG TAB PO PRN ×2 (10:20→14:43)
[2017-09-19 11:10] LABS: AUTOMATED NEUTROPHIL # 2.8 TH/MM3 (1.8-7.7); BASOPHIL % 0.7 % (0.0-2.0); EOSINOPHIL # 0.1 TH/MM3 (0-0.4); EOSINOPHIL % 2.2 % (0.0-4.0); LYMPH % 34.1 % (9.0-44.0); LYMPHOCYTE # 1.7 TH/MM3 (1.0-4.8); MEAN CELL VOLUME 92.8 FL (80.0-100.0); MEAN CORPUSCULAR HEMOGLOBIN 32.1 PG (27.0-34.0); MEAN CORPUSCULAR HGB CONC 34.6 % (32.0-36.0); MEAN PLATELET VOLUME 7.3 FL (7.0-11.0); MONO % 7.7 % (0.0-8.0); MONOCYTE # 0.4 TH/MM3 (0-0.9); NEUT % 55.3 % (16.0-70.0); PLATELET COUNT 207 TH/MM3 (150-450); RED CELL DISTRIBUTION WIDTH 16.8 % (11.6-17.2)
[2017-09-19 11:43] LABS: AST (GOT) 14 U/L (15-37); BICARBONATE 29.4 MEQ/L (21.0-32.0); BLOOD UREA NITROGEN 12 MG/DL (7-18); CALCIUM 8.7 MG/DL (8.5-10.1); CHLORIDE 108 MEQ/L (98-107); GLOMERULAR FILTRATION RATE 95 ML/MIN (>89); SODIUM (NA) 142 MEQ/L (136-145)
[2017-09-19 11:48] LABS: ALKALINE PHOSPHATASE 57 U/L (45-117); ALT (GPT) 10 U/L (10-53); GLUCOSE,RANDOM 126 MG/DL (74-106); TOTAL BILIRUBIN ADULT 0.4 MG/DL (0.2-1.0); TOTAL PROTEIN 5.8 GM/DL (6.4-8.2)
[2017-09-19] MEDS ORDERED: ECASA81 PO (12:41)
[2017-09-19] MEDS ORDERED: DILA4TAB10 PO (12:41)
[2017-09-19] MEDS ORDERED: LEVE500 PO (12:42)
--- NOTE | 2017-09-19 12:44 | HHI.FF ---
Face to Face Verification Diagnosis: (1) Seizure (2) HTN (hypertension) (3) PAD (peripheral artery disease) Physical Therapy Order: Evaluate and Treat, Improve ambulation, Strength and gait training Occupational Therapy Order: Evaluate and Treat, Improve ADL, Gross motor coordination, Fine motor coordination Speech Therapy Order: To Improve: Speech and communication skills, Cognitive skills, Swallowing Home Health Nursing Order: Medical education Signs/symptoms of disease process Wound care and dressing changes Nursing assessment with vital signs Instructions: Per wound care recs: Strict 2 hour turns. No briefs. No cotton pads. Apply Calazime skin protectant paste for moisture incontinence. Use disposable ultrasorbs for moisture wicking. Home Health Aide Order: To Assist In: Bathing and personal care, crystal cutter and meal prep I have seen patient Raiza Cortes on 09/19/17. My clinical findings support the need for the requested home health care services because: Ltd mobility - disease progression Deconditioned w/ increased weakness Limited ability to care for self Need for psychosocial assistance Impaired cognition/judgement High risk of falls Infection w/ risk of complications I certify that my clinical findings support that this patient is homebound because: Impaired cognitive ability/safety Unsteady gait/balance Unsafe to leave home unassisted Need for psychosocial assistance Dkz-jvjzfxqdgx-dhypbyed bed/chair Unable to use public transportation Jabier Arredondo DO September 19, 2017 12:44 pm
--- NOTE | 2017-09-19 23:44 | HHI.DS ---
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 The patient's daughter, who is her primary caregiver, reports that she was giving the patient her medication around 1030 yesterday evening when the patient had an episode where her eyes rolled back in her head, her jaw locked, her right arm flexed and she foamed at the mouth for approximately 10 minutes. Per the daughter's report the patient was nonresponsive during the episode and was confused worse than baseline upon completion of the episode. She has no prior history of seizure. During my examination, the patient has returned to her baseline. She complains of pain in her bilateral shoulders and around her buttock region. These are chronic complaints for her. The patient denies any chest pain or shortness of breath. No headache. No nausea/vomiting/diarrhea/abdominal pain. Strength and movement at baseline. No fevers/chills. CBC/BMP: 09/19/17 1034 09/19/17 1034 Significant Findings Laboratory Tests Test 09/18/17 00:17 09/18/17 00:40 09/19/17 10:34 Red Blood Count 2.92 MIL/MM3 (4.00-5.30) 2.80 MIL/MM3 (4.00-5.30) Hemoglobin 9.2 GM/DL (11.6-15.3) 9.0 GM/DL (11.6-15.3) Hematocrit 27.1 % (35.0-46.0) 26.0 % (35.0-46.0) Monocytes (%) (Auto) 9.0 % (0.0-8.0) Eosinophils (%) (Auto) 4.4 % (0.0-4.0) Blood Urea Nitrogen 23 MG/DL (7-18) Random Glucose 111 MG/DL (74-106) 126 MG/DL (74-106) Total Protein 6.1 GM/DL (6.4-8.2) 5.8 GM/DL (6.4-8.2) Albumin 2.2 GM/DL (3.4-5.0) 2.0 GM/DL (3.4-5.0) Calcium Level 8.4 MG/DL (8.5-10.1) Chloride Level 110 MEQ/L (98-107) 108 MEQ/L (98-107) Estimat Glomerular Filtration Rate 77 ML/MIN (>89) Vitamin B12 Level 1847 PG/ML (193-986) Urine Leukocyte Esterase TRACE (NEG) Urine Calcium Oxalate Crystals OCC /hpf (NONE) Urine Bacteria OCC /hpf (NONE) Urine Mucus FEW /lpf (OCC) Aspartate Amino Transf (AST/SGOT) 14 U/L (15-37) Imaging Last Impressions Head CT 09/17/17 0000 Signed Impressions: Service Date/Time: Monday, September 18, 2017 01:01 - CONCLUSION: 1. Chronic changes with an old right MCA infarct. Dystrophic type calcifications in the infarct bed. Moderately severe periventricular small vessel ischemic demyelination. 2. Small air-fluid level in the maxillary antra could represent a mild acute sinusitis. 3. No acute intracranial process. Mg Salas MD PE at Discharge GENERAL: Alert, NAD. SKIN: Warm and dry. HEAD: Normocephalic. EYES: No scleral icterus. No injection or drainage. NECK: Supple, trachea midline. No JVD or lymphadenopathy. CARDIOVASCULAR: Regular rate and rhythm without murmurs, gallops, or rubs. RESPIRATORY: Breath sounds equal bilaterally. No accessory muscle use. GASTROINTESTINAL: Abdomen soft, non-tender, nondistended. MUSCULOSKELETAL: No cyanosis, or edema. Significant pain on trying to move left lower extremity. BACK: Nontender without obvious deformity. No CVA tenderness. Pt update on day of discharge Patient is much more pleasant today. No acute concerns. No fever, chills. Hospital Course Ms. 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 Patient has a history of breast cancer, colon cancer. Probable seizure Hx of right MCA Stroke - Neurology evaluated patient. continue patient on Keppra. - EEG unremarkable for any seizure. Reduced Aspirin to 81mg Qday. Hypertension Hyperlipidemia -Continue amlodipine 5 mg daily, atorvastatin 40 mg nightly. -D/C metoprolol due to bradycardia. D/C PPI. Patient does not have any problem with acid reflux. Sacral decubitus continue wound care. On 09/19/2017, neurology cleared for discharge. Patient's blood cx grew coag negative staph in one of the bottles. This is essentially contamination. No evidence of infectious process. Patient was subsequently discharged home. Diet per speech therapy recommendations. Pt Condition on Discharge: Good Discharge Disposition: Disch w/ Home Health Serv Discharge Time: <= 30 minutes Discharge Instructions DIET: Follow Instructions for: As Tolerated, No Restrictions Speech Therapy-Diet Recommends: Mechanical Soft, [place] Thickened Liquids Activities you can perform: Regular-No Restrictions Follow up Referrals: PCP Follow-up - 1 Week New Medications: Aspirin DR (Aspirin DR) 81 Mg Tabdr 81 MG PO DAILY for Blood Clot Prevention, #90 TAB Levetiracetam (Keppra) 500 Mg Tab 500 MG PO Q12HR for Seizure Control, #60 TAB 5 Refills Continued Medications: Amlodipine (Amlodipine) 5 Mg Tab 5 MG PO DAILY for Blood Pressure Management, #30 TAB 0 Refills Atorvastatin (Atorvastatin) 40 Mg Tab 40 MG PO HS for Cholesterol Management, #30 TAB 0 Refills Hydromorphone (Dilaudid) 4 Mg Tab 4 MG PO Q4H PRN for Pain Management, #20 TAB 0 Refills (This prescription has been renewed) Lactulose Liq (Lactulose Liq) 10 Gm/15 Ml Soln 30 ML PO DAILY, ML 0 Refills Sennosides-Docusate Sodium (Senna-Plus) 8.6-50 Mg Tab 4 TAB PO BID for Constipation, TAB 0 Refills Discontinued Medications: Aspirin (Aspirin) 325 Mg Tab 325 MG PO DAILY, #30 TAB 0 Refills Metoprolol Succinate ER 24 HR (Metoprolol Succinate ER 24 HR) 50 Mg Tab 50 MG PO DAILY, #30 TAB 0 Refills Omeprazole (Omeprazole) 20 Mg Tab 20 MG PO DAILY, #30 TAB 0 Refills Jabier Arredondo DO September 19, 2017 23:44
== END 2017-09-19 18:12 | disposition home or self-care (01) ==
LOC: NEPC 23:45 → NEDA 09-18 02:29 → NEPGCP 09-18 05:02
PROVIDERS: ADMIT Hospitalist; ATTEND Hospitalist
DX: R56.9 Unspecified convulsions (principal); I96 Gangrene, not elsewhere classified; M25.511 Pain in right shoulder; M25.512 Pain in left shoulder; M79.1 Myalgia; L89.159 Pressure ulcer of sacral region, unspecified stage; M79.672 Pain in left foot; I10 Essential (primary) hypertension; E78.00 Pure hypercholesterolemia, unspecified; I69.354 Hemiplegia and hemiparesis following cerebral infarction affecting left non-dominant side; F01.51 Vascular dementia, unspecified severity, with behavioral disturbance; K21.9 Gastro-esophageal reflux disease without esophagitis; M19.90 Unspecified osteoarthritis, unspecified site; Z85.3 Personal history of malignant neoplasm of breast; Z85.038 Personal history of other malignant neoplasm of large intestine; Z90.11 Acquired absence of right breast and nipple; Z79.899 Other long term (current) drug therapy; Z79.82 Long term (current) use of aspirin
CPT/HCPCS: 70450; 80053; 81001; 82607; 83735; 85025; 87040; 87077; 87086; 87149; 87186; 87205; 92610; 95819; 96361; 96374; 96376; 97162; 99285; G0378; G8987; G8988; G8996; G8997; J2270; J7040; J7121; P9612

== ENCOUNTER 2017-12-29 17:02 | Inpatient (IN) ==
[2017-12-29] MEDS ORDERED: Sodium Chlor 0.9% Inj 500 ML IV.SIG ONE (17:43)
[2017-12-29] MEDS ORDERED: Morphine Inj 4 MG/ML Vial IV.PUSH ONE (17:43)
[2017-12-29 18:44] LABS: Hematocrit 35.6 % (35.0-46.0); Hemoglobin 12.1 gm/dL (11.6-15.3); Mean Corpuscular HGB Conc 34.1 % (32.0-36.0); Mean Corpuscular Volume 96.9 fL (80.0-100.0); Mean Platelet Volume 8.3 fL (7.0-11.0); Platelet Count 186 th/mm3 (150-450); Red Blood Count 3.67 mil/mm3 (4.00-5.30); Red Cell Distribution Width 14.9 % (11.6-17.2)
[2017-12-29 18:52] LABS: Bilirubin,Urine Negative (Negative); Clarity,Urine Clear (Clear); Color,Urine Yellow (Yellw/Straw); Glucose,Urine (UA) Negative (Negative); Leukocyte Esterase,Urine Negative (Negative); Mucus,Urine Few /lpf (Occasional); Nitrite,Urine Negative (Negative); Specific Gravity,Urine 1.021 (1.002-1.035); Squamous Epithelial Cell,Urine <1 /hpf (0-5)
--- NOTE | 2017-12-29 19:04 | ED ---
HPI General Chief Complaint: Abdominal Pain Stated Complaint: [facility] Transport/Medical Time Seen by Provider: 12/29/17 17:29 Source: patient Limitations: no limitations History of Present Illness HPI narrative: Patient is an 87-year-old female, past medical history significant for previous CVA with residual left-sided deficits, who presents with complaint of abdominal distention and difficulty urinating. Her daughter whom is her caregiver states that she has not urinated since this morning. She states that she has had difficulty urinating over the last several days and has had abdominal distention. They have given her several laxatives and states she has had several bowel movements but continues to have worsening trouble urinating. She denies fever and chills. She denies cough, congestion, chest pain, dyspnea. Patient complains of chronic pain but otherwise has no complaints except for abdominal distention. 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 MD complaint: abdominal pain Onset (ago): hour(s) Pain Consistency: constant Location: diffuse Severity: mild Quality: cramping Radiation: none Migration to: no migration Relieving factors: nothing Exacerbating factors: nothing Related Data Home Medications Medication Instructions Recorded Confirmed amlodipine 5 mg PO DAILY 12/29/17 12/29/17 aspirin [Aspir-81] 81 mg PO DAILY 12/29/17 12/29/17 atorvastatin 40 mg PO DAILY 12/29/17 12/29/17 hydromorphone 4 mg PO Q4H PRN 12/29/17 12/29/17 lactulose 30 g PO DAILY 12/29/17 12/29/17 levetiracetam [Keppra] 500 mg PO Q12H 12/29/17 12/29/17 metoprolol succinate 50 mg PO DAILY 12/29/17 12/29/17 omeprazole 20 mg PO DAILY 12/29/17 12/29/17 sennosides-docusate sodium 4 tab PO BID 12/29/17 12/29/17 Allergies Allergy/AdvReac Type Severity Reaction Status Date / Time enoxaparin AdvReac Severe Bleeding Verified 12/29/17 18:26 heparin (porcine) AdvReac Severe Bleeding Verified 12/29/17 18:26 Review of Systems ROS: all other systems reviewed are negative Constitutional Denies chills and Denies fever(s) Eyes Denies blurry vision ENT Denies nasal congestion Cardiovascular Denies chest pain Respiratory Denies dyspnea Gastrointestinal Reports abdominal pain, Denies diarrhea, Denies nausea and Denies vomiting Genitourinary Denies dysuria Musculoskeletal Denies back pain Integumentary/Breasts Denies rash Neurologic Denies headache(s) [facility] Medical History Medical History Breast CA (Acute) CVA (cerebral vascular accident) (Acute) Colon cancer (Acute) Dementia (Acute) Gangrene (Acute) PAD (peripheral artery disease) (Acute) Seizure (Acute) Surgical History Surgical History H/O mastectomy (Acute) History of appendectomy (Acute) History of partial colectomy (Acute) Hx of cholecystectomy (Acute) Family History Family History Other Hyperlipidemia Social History Social History Substance History: No History of Abuse Second Hand Smoke Exposure: No Smoking Status: Former smoker How Often Do You Have a Drink Containing Alcohol: Never Recent Travel in [facility] within the Last 8 Weeks: No Recent Out of Country Travel within the Last 8 Weeks: No Immunization History Tetanus Immunization: Unsure Exam Narrative Exam Narrative: GENERAL: Well-appearing female in no acute distress SKIN: Focused skin assessment warm/dry. Chronic dry gangrene to the right foot. HEAD: Atraumatic. Normocephalic. EYES: Pupils equal and round. No scleral icterus. No injection or drainage. ENT: No nasal bleeding or discharge. Mucous membranes pink and moist. NECK: Trachea midline. No JVD. CARDIOVASCULAR: Regular rate and rhythm. No murmur appreciated. RESPIRATORY: No accessory muscle use. Clear to auscultation. Breath sounds equal bilaterally. GASTROINTESTINAL: Abdomen soft, diffuse tenderness throughout. Mild distention. Hepatic and splenic margins not palpable. MUSCULOSKELETAL: No clubbing. No cyanosis. No edema. NEUROLOGICAL: Awake and alert. Left-sided paralysis. Chronic contractures. Normal speech. PSYCHIATRIC: Appropriate mood and affect; insight and judgment normal. Course Initial Documented Vital Signs Temperature 98.5 F 12/29/17 17:24 Pulse Rate 78 12/29/17 17:24 Respiratory Rate 17 12/29/17 17:24 Blood Pressure 120/66 12/29/17 17:24 Pulse Oximetry 97 12/29/17 17:24 Last Documented Vital Signs Temperature 98.1 F 12/30/17 01:52 Pulse Rate 74 12/30/17 01:52 Respiratory Rate 18 12/30/17 01:52 Blood Pressure 119/56 L 12/30/17 01:52 Pulse Oximetry 96 12/30/17 01:52 Sign Out Sign Out Data: Patient Sign Out occurred on 12/29/17 at 19:39. Patient's care was discussed, and care was transferred from Joselyn Elizondo MD to Christina Ryan. Sign Out Comment: Labs and CT pending. Dispo per labs, CT and re-eval. Last updated by Joselyn Elizondo MD at 12/29/17 19:20 Medical Decision Making MDM Narrative Medical decision making narrative: Patient is an 87-year-old female with previous CVA and residual left-sided deficits who presents with complaint of abdominal distention and urinary retention. She is hemodynamically stable on arrival. Abdominal exam reveals diffuse tenderness throughout with slight abdominal distention. Bladder scanner showed approximately 400 cc in the bladder after which she immediately urinated and had a residual 100 cc in the bladder. CBC unremarkable. Other labs and CT pending at time of checkout. Patient was seen and evaluated in the emergency department initially by Dr. Elizondo and signed out to me at shift change. Her CT demonstrates an ileus and with her other complication of neurogenic bladder she was placed in observation for further treatment. Differential Diagnosis Differential Diagnosis: Differential diagnosis includes but is not limited to urinary tract infection, urinary retention, obstruction, abdominal mass. Medical Records Medical records reviewed: Yes I reviewed the patient's medical records. Lab Data Lab results reviewed: Yes I reviewed the patient's lab results. Result diagrams: 12/29/17 17:56 12/29/17 17:56 Lab Results 12/29/17 12/29/17 12/29/17 Range/Units 17:56 17:56 18:14 WBC 7.0 (4.0-11.0) th/mm3 RBC 3.67 L (4.00-5.30) mil/mm3 Hgb 12.1 (11.6-15.3) gm/dL Hct 35.6 (35.0-46.0) % MCV 96.9 (80.0-100.0) fL MCH 33.0 (27.0-34.0) pg MCHC 34.1 (32.0-36.0) % RDW 14.9 (11.6-17.2) % Plt Count 186 (150-450) th/mm3 MPV 8.3 (7.0-11.0) fL Sodium 142 (136-145) meq/L Potassium 4.4 (3.5-5.1) meq/L Chloride 107 (98-107) meq/L Carbon Dioxide 30.0 (21.0-32.0) meq/L Anion Gap 5 (5-15) meq/L BUN 30 H (7-18) mg/dL Creatinine 0.78 (0.50-1.00) mg/dL Estimated GFR 70 L (>89) mL/min Random Glucose 123 H (74-106) mg/dL Calcium 8.7 (8.5-10.1) mg/dL Total Bilirubin 0.3 (0.2-1.0) mg/dL AST 20 (15-37) U/L ALT 20 (10-53) U/L Alkaline Phosphatase 67 (45-117) U/L Total Protein 6.9 (6.4-8.2) g/dL Albumin 2.8 L (3.4-5.0) g/dL Lipase 120 (73-393) U/L Urine Color Yellow (Yellw/Straw) Urine Clarity Clear (Clear) Urine pH 6.0 (5.0-8.5) Ur Specific [place] 1.021 (1.002-1.035) Urine Protein Negative (Neg-Trace) mg/dL Urine Glucose (UA) Negative (Negative) mg/dL Urine Ketones Trace H (Negative) mg/dL Urine Occult Blood Negative (Negative) Urine Nitrate Negative (Negative) Urine Bilirubin Negative (Negative) Urine Urobilinogen 2.0 H (Less than 2) mg/dL Ur Leukocyte Esterase Negative (Negative) Urine RBC Less than 1 (0-3) /hpf Urine WBC Less than 1 (0-5) /hpf Ur Squamous Epith Cells <1 (0-5) /hpf Urine Mucus Few H (Occasional) /lpf Micro UA Comment Cath-culture not ind Urine Culture Comments Cath-cult not ind Imaging Data Radiologist's impression: Abdomen/Pelvis CT 12/29/17 17:43 CONCLUSION: 1. Bowel gas pattern typical of diffuse ileus. No obstruction seen. No acute inflammatory changes. 2. Atherosclerotic abdominal aorta and branch vessels. 3. Small bubble of gas in the urinary bladder, nonspecific but potentially related to recent instrumentation. No perceptible wall thickening. Discharge Plan Discharge Disposition Patient Disposition: 30 Still Patient Discharge Condition Condition: Stable Discharge Details Diagnosis: Abdominal distension Physicians Team ED Provider: Christina Ryan Primary Care Provider: Lucinda Randhawa Attending Provider: Jayce Castillo Status ED Status: Left Department Discharge Information Discharge Date/Time: 12/30/17 01:39
[2017-12-29 19:16] LABS: Alanine Aminotransferase 20 U/L (10-53)
[2017-12-29 19:18] LABS: Albumin 2.8 g/dL (3.4-5.0); Anion Gap 5 meq/L (5-15); Aspartate Aminotransferase 20 U/L (15-37); Blood Urea Nitrogen 30 mg/dL (7-18); Calcium 8.7 mg/dL (8.5-10.1); Chloride 107 meq/L (98-107); Glomerular Filtration Rate 70 mL/min (>89); Glucose,Random 123 mg/dL (74-106); Lipase 120 U/L (73-393); Potassium 4.4 meq/L (3.5-5.1); Sodium 142 meq/L (136-145)
[2017-12-29 19:19] LABS: Alkaline Phosphatase 67 U/L (45-117); Total Protein 6.9 g/dL (6.4-8.2)
--- NOTE | 2017-12-29 20:23 | CT ---
EXAM DATE: 12/29/2017 8:01 PM EDT AGE/SEX: 87 years / Female INDICATIONS: Abdominal pain with distention. CLINICAL DATA: This is the patient's initial encounter. Patient reports that signs and symptoms have been present for 1 day and indicates a pain score of 10/10. MEDICAL/SURGICAL HISTORY: Cardiovascular disease. Carcinoma, breast. Carcinoma, colon. Demen tia Mastectomy None. ORAL CONTRAST: No oral contrast ingested. RADIATION DOSE: 9,15 CTDI (mGy) COMPARISON: [facility], CT ABDOMEN & PELVIS W CONTRAST, 08/24/2017. . TECHNIQUE: Multiple contiguous axial images were obtained through the abdomen and pelvis following b olus infusion of 72 ml Omnipaque 350 (iohexol) nonionic water-soluble contrast as a single exam dos e. No oral contrast ingested. Using automated exposure control and adjustment of the mA and/or kV ac cording to patient size, radiation dose was kept as low as reasonably achievable to obtain optimal di agnostic quality images. DICOM format image data is available electronically for review and comparis on. FINDINGS: Mildly prominent caliber small and large bowel throughout. A mild ileus would be in the differential. Pattern is nonobstructive. No free fluid or free air. No lymphadenopathy. Cholecystectomy changes are noted. Common bile duct measures approximately 11 mm, probably reservoir effect but please correlate clinically and serologic week. No intrahepatic biliary tension. Liver is within normal limits. Spleen, pancreas, adrenal glands and kidneys are within normal limits. Small bubble of gas seen within the urinary bladder. No perceptible wall thickening. Visualized lung bases are clear. No acute bony abnormality demonstrated. Atherosclerosis again seen of the abdominal aorta and branch vessels. No aneurysm. CONCLUSION: 1. Bowel gas pattern typical of diffuse ileus. No obstruction seen. No acute inflammatory changes. 2. Atherosclerotic abdominal aorta and branch vessels. 3. Small bubble of gas in the urinary bladder, nonspecific but potentially related to recent instrum entation. No perceptible wall thickening. Electronically signed by: Tutu Nash MD 12/29/2017 8:22 PM EDT
[2017-12-30] MEDS ORDERED: Acetaminophen 325 MG Tablet PO PRN (00:19)
[2017-12-30] MEDS ORDERED: Temazepam 15 MG Capsule PO PRN (00:19)
[2017-12-30] MEDS ORDERED: Bisacodyl 10 MG Supp RECTAL PRN (00:19)
--- NOTE | 2017-12-30 00:34 | P.HP ---
History of Present Illness Service: [facility] Primary Care Physician: Lucinda Randhawa MD History of Present Illness: 87-year-old female with a past medical history significant for previous CVA with residual left-sided paralysis, dementia, history of breast cancer, history of colon cancer, hypertension, hyperlipidemia and left foot dry gangrene resents the emergency department for evaluation of urinary retention and bloating. Per the patient's daughter she last voided around 7 AM yesterday. She was brought to the emergency department for further evaluation as she had significant abdominal pain. The patient voided on her own in the emergency department. CT of the abdomen/pelvis done significant for diffuse ileus. Patient's last bowel movement was this morning. She denies any chest pain or shortness of breath. Endorses left shoulder pain from lying on her shoulder. Denies abdominal pain. Previous bloating and tenderness, now resolved. No fevers/chills. Left sided weakness which is residual. Review of Systems All other systems reviewed negative except as stated in [facility] - History History Provided By: Family Member - Medical History Medical History: Medical History (Last Reviewed 12/29/17 @ 19:00 by Joselyn Elizondo MD) Breast CA CVA (cerebral vascular accident) Colon cancer Dementia Gangrene PAD (peripheral artery disease) Seizure - Surgical History Surgical History: Surgical History (Last Updated 12/30/17 @ 00:26 by Estrella Dodge MD) H/O mastectomy History of appendectomy History of partial colectomy Hx of cholecystectomy - Family History Family History: Family History (Last Updated 12/30/17 @ 00:27 by Estrella Dodge MD) Other Hyperlipidemia - Tobacco History Smoking Status: Former smoker - Alcohol History How Often Do You Have a Drink Containing Alcohol: Never - Substance Use History Substance History: No History of Abuse - Travel History Recent Travel in the [place] Within the Last 8 Weeks: No Recent Travel Out of the Country Within the Last 8 Weeks: No - Immunization History Tetanus Immunization: Unsure Medications and Allergies Active Medications: Active Medications Acetaminophen (Tylenol) 650 mg PO Q4H PRN PRN Reason: Temp > 100.4 Al Hydroxide/Mg Hydroxide (Milk Of Magnesia Liq) 30 ml PO Q12H PRN PRN Reason: Mild Constipation Amlodipine Besylate (Norvasc) 5 mg PO DAILY [facility] Aspirin (Ecotrin) 81 mg PO DAILY [facility] Atorvastatin Calcium (Lipitor) 40 mg PO DAILY [facility] Bisacodyl (Dulcolax Supp) 10 mg RECTAL DAILY PRN PRN Reason: SEVERE CONSITIPATION Hydromorphone HCl (Dilaudid) 4 mg PO Q4H PRN PRN Reason: Pain Sodium Chloride (Ns Inj) 1,000 mls @ 70 mls/hr IV.CONT .[id number] [facility] Lactulose (Lactulose Liq) 30 ml PO DAILY PRN PRN Reason: SEVERE CONSITIPATION Levetiracetam (Keppra) 500 mg PO Q12H [facility] Metoprolol Succinate (Toprol Xl) 50 mg PO DAILY [facility] Non-Formulary Medication (Lactulose [Lactulose]) 30 g PO DAILY [facility] Non-Formulary Medication (Omeprazole [Omeprazole]) 20 mg PO DAILY [facility] Ondansetron HCl (Zofran Inj) 4 mg IV.PUSH Q6H PRN PRN Reason: NAUSEA OR VOMITING Senna/Docusate Sodium (Yoselin-Colace) 1 tab PO BID [facility] Sennosides (Senokot) 17.2 mg PO Q12H PRN PRN Reason: Moderate Constipation Sodium Chloride (Ns Flush) 2 ml IV.FLUSH PRN PRN PRN Reason: FLUSH AFTER USING IV ACCESS Last Admin: 12/29/17 18:20 Dose: 2 ml Temazepam (Restoril) 15 mg PO HS PRN PRN Reason: INSOMNIA Allergies Allergy/AdvReac Type Severity Reaction Status Date / Time enoxaparin AdvReac Severe Bleeding Verified 12/29/17 18:26 heparin (porcine) AdvReac Severe Bleeding Verified 12/29/17 18:26 Home Medications Medication Instructions Recorded Confirmed Type amlodipine 5 mg PO DAILY 12/29/17 12/29/17 History aspirin [Aspir-81] 81 mg PO DAILY 12/29/17 12/29/17 History atorvastatin 40 mg PO DAILY 12/29/17 12/29/17 History hydromorphone 4 mg PO Q4H PRN 12/29/17 12/29/17 History lactulose 30 g PO DAILY 12/29/17 12/29/17 History levetiracetam [Keppra] 500 mg PO Q12H 12/29/17 12/29/17 History metoprolol succinate 50 mg PO DAILY 12/29/17 12/29/17 History omeprazole 20 mg PO DAILY 12/29/17 12/29/17 History sennosides-docusate sodium 4 tab PO BID 12/29/17 12/29/17 History Exam Vital signs: Vital Signs 12/29/17 17:24 12/29/17 18:43 12/30/17 00:08 Temperature 98.5 F Pulse Rate 78 65 Respiratory Rate 17 22 16 Blood Pressure 120/66 124/58 L Pulse Oximetry 97 Intake & Output 12/29/17 12/29/17 12/30/17 06:59 18:59 06:59 Weight 58.967 kg Other: # Urine Diapers 1 Narrative: Gen.: No acute distress Head: Normocephalic. Atraumatic. EENT: Pupils equal round and reactive to light. Nose without drainage. Airway intact. Throat without injection. Cardiovascular: Regular rate and rhythm. No murmurs, rubs or gallops. Respiratory: Lungs clear to auscultation bilaterally. No wheezes or rhonchi. Abdomen: Soft, diffusely tender to palpation, nondistended. No peritoneal signs. Musculoskeletal: No gross deformities. No edema. Skin: No obvious rashes or erythema. Neuro: Sensory and motor grossly intact. Cranial nerves II through XII grossly intact. Results - Labs CBC & Chem 7: 12/29/17 17:56 12/29/17 17:56 Labs: Laboratory Results - last 24 hr 12/29/17 12/29/17 12/29/17 17:56 17:56 18:14 WBC 7.0 RBC 3.67 L Hgb 12.1 Hct 35.6 MCV 96.9 MCH 33.0 MCHC 34.1 RDW 14.9 Plt Count 186 MPV 8.3 Sodium 142 Potassium 4.4 Chloride 107 Carbon Dioxide 30.0 Anion Gap 5 BUN 30 H Creatinine 0.78 Estimated GFR 70 L Random Glucose 123 H Calcium 8.7 Total Bilirubin 0.3 AST 20 ALT 20 Alkaline Phosphatase 67 Total Protein 6.9 Albumin 2.8 L Lipase 120 Urine Color Yellow Urine Clarity Clear Urine pH 6.0 Ur Specific [place] 1.021 Urine Protein Negative Urine Glucose (UA) Negative Urine Ketones Trace H Urine Occult Blood Negative Urine Nitrate Negative Urine Bilirubin Negative Urine Urobilinogen 2.0 H Ur Leukocyte Esterase Negative Urine RBC Less than 1 Urine WBC Less than 1 Ur Squamous Epith Cells <1 Urine Mucus Few H Micro UA Comment Cath-culture not ind Urine Culture Comments Cath-cult not ind - Imaging Impressions Abdomen/Pelvis CT 12/29/17 17:43 CONCLUSION: 1. Bowel gas pattern typical of diffuse ileus. No obstruction seen. No acute inflammatory changes. 2. Atherosclerotic abdominal aorta and branch vessels. 3. Small bubble of gas in the urinary bladder, nonspecific but potentially related to recent instrumentation. No perceptible wall thickening. Caprini VTE Risk Assessment Caprini VTE Risk Assessment: Moderate/High Risk (score >= 2) Caprini Risk Assessment Model: Point Value = 1 Point Value = 2 Point Value = 3 Point Value = 5 Age 41-60 Minor surgery BMI > 25 kg/m2 Swollen legs Varicose veins or History of unexplained or recurrent spontaneous Oral contraceptives or hormone replacement Sepsis (< 1 month) Serious lung disease, including pneumonia (< 1 month) Abnormal pulmonary function Acute myocardial infarction Congestive heart failure (< 1 month) History of inflammatory bowel disease Medical patient at bed rest Age 61-74 Arthroscopic surgery Major open surgery (> 45 min) Laparoscopic surgery (> 45 min) Malignancy Confined to bed (> 72 hours) Immobilizing plaster cast Central venous access Age >= 75 History of VTE Family history of VTE Factor V Leiden Prothrombin [id number] Lupus anticoagulant Anticardiolipin antibodies Elevated serum homocysteine Heparin-induced thrombocytopenia Other congenital or acquired thrombophilia Stroke (< 1 month) Elective arthroplasty Hip, pelvis, or leg fracture Acute spinal cord injury (< 1 month) Prophylaxis Regimen: Total Risk Factor Score Risk Level Prophylaxis Regimen 0-1 Low Early ambulation 2 Moderate Order ONE of the following: *Sequential Compression Device (SCD) *Heparin 5000 units SQ BID 3-4 Higher Order ONE of the following medications: *Heparin 5000 units SQ TID *Enoxaparin/Lovenox 40 mg SQ daily (WT < 150 kg, CrCl > 30 mL/min) *Enoxaparin/Lovenox 30 mg SQ daily (WT < 150 kg, CrCl > 10-29 mL/min) *Enoxaparin/Lovenox 30 mg SQ BID (WT < 150 kg, CrCl > 30 mL/min) AND/OR *Sequential Compression Device (SCD) 5 or more Highest Order ONE of the following medications: *Heparin 5000 units SQ TID (Preferred with Epidurals) *Enoxaparin/Lovenox 40 mg SQ daily (WT < 150 kg, CrCl > 30 mL/min) *Enoxaparin/Lovenox 30 mg SQ daily (WT < 150 kg, CrCl > 10-29 mL/min) *Enoxaparin/Lovenox 30 mg SQ BID (WT < 150 kg, CrCl > 30 mL/min) AND *Sequential Compression Device (SCD) Assessment and Plan - Plan Assessment/plan: 1. Ileus CT significant for diffuse ileus Patient denies any nausea/vomiting but has previous abdominal pain N.p.o. Monitor 2. Dry gangrene Continue outpatient management with podiatry 3. Bilateral shoulder/buttock pain Continue p.o. Dilaudid as prescribed 4. Hypertension/hyperlipidemia Continue home medications 5. History of CVA Physical therapy consulted FEN N.p.o. Electrolytes: As needed NS at 70 cc/hour Heparin
[2017-12-30] MEDS: Sod Chloride 0.9% Inj 1,000 ML IV.CONT SCH ×2 (01:40→15:02)
[2017-12-30] MEDS ORDERED: Pantoprazole Sodium 20 MG DR Tablet PO SCH (09:00)
[2017-12-30] MEDS ORDERED: Senna/Docusate Sodium 8.6/50 MG Tablet PO SCH (09:00)
[2017-12-30] MEDS ORDERED: levETIRAcetam 500 MG Tablet PO SCH ×2 (09:00→11:00)
[2017-12-30] MEDS ORDERED: Heparin - SQ 10,000 UNITS/ML Vial SQ SCH (09:00)
[2017-12-30] MEDS: amLODIPine 5 MG Tablet PO SCH (09:33)
--- NOTE | 2017-12-30 10:20 | P.PNIM ---
Subjective Interval history: 87-year-old female with a past medical history significant for previous CVA with residual left-sided paralysis, dementia, history of breast cancer, history of colon cancer, hypertension, hyperlipidemia and left foot dry gangrene resents the emergency department for evaluation of urinary retention and bloating. Per the patient's daughter she last voided around 7 AM yesterday. She was brought to the emergency department for further evaluation as she had significant abdominal pain. The patient voided on her own in the emergency department. CT of the abdomen/pelvis done significant for diffuse ileus. Patient's last bowel movement was this morning. She denies any chest pain or shortness of breath. Endorses left shoulder pain from lying on her shoulder. Denies abdominal pain. Previous bloating and tenderness, now resolved. No fevers/chills. Left sided weakness which is residual. 8-12 noted to have an ileus on CAT scan Has chronic pain in the left great toe Less abdominal pain at this time Has chronic pain medications at home regarding the left great toe WILL TRY CLEAR LIQUID DIET TO SEE IF SHE TOLERATES IT Physical Exam Vital signs: Vital Signs 12/29/17 17:24 12/29/17 18:43 12/30/17 00:08 Temperature 98.5 F Pulse Rate 78 65 Respiratory Rate 17 22 16 Blood Pressure 120/66 124/58 L Pulse Oximetry 97 12/30/17 01:52 12/30/17 07:34 12/30/17 09:04 Temperature 98.1 F 98.0 F Pulse Rate 74 64 Respiratory Rate 18 16 Blood Pressure 119/56 L 122/59 L Pulse Oximetry 96 97 95 Intake & Output 12/29/17 12/30/17 12/30/17 18:59 06:59 18:59 Weight 58.967 kg Other: # Urine Diapers 1 Date of Last Bowel Movement 12/30/17 Narrative: Awake and alert talkative and cooperative Gen.: No acute distress Head: Normocephalic. Atraumatic. EENT: Pupils equal round and reactive to light. Nose without drainage. Airway intact. Throat without injection. Cardiovascular: Regular rate and rhythm. No murmurs, rubs or gallops. Respiratory: Lungs clear to auscultation bilaterally. No wheezes or rhonchi. Abdomen: Soft, diffusely tender to palpation, nondistended. No peritoneal signs. Musculoskeletal: No gross deformities. No edema. Skin: No obvious rashes or erythema. Left great toe is dressed Neuro: Sensory and motor grossly intact. Cranial nerves II through XII grossly intact. Left hemiparesis - Urinary Catheter Management Straight Cath placed during this visit: yes, but has since been removed by the nurse Reason for continuing: Not indwelling catheter Insertion date: 12/29/17 Insertion time: 18:15 Removal date: 12/29/17 Removal time: 18:15 Results - Labs CBC & Chem 7: 12/29/17 17:56 12/29/17 17:56 Laboratory Results - last 24 hr 12/29/17 12/29/17 12/29/17 17:56 17:56 18:14 WBC 7.0 RBC 3.67 L Hgb 12.1 Hct 35.6 MCV 96.9 MCH 33.0 MCHC 34.1 RDW 14.9 Plt Count 186 MPV 8.3 Sodium 142 Potassium 4.4 Chloride 107 Carbon Dioxide 30.0 Anion Gap 5 BUN 30 H Creatinine 0.78 Estimated GFR 70 L Random Glucose 123 H Calcium 8.7 Total Bilirubin 0.3 AST 20 ALT 20 Alkaline Phosphatase 67 Total Protein 6.9 Albumin 2.8 L Lipase 120 Urine Color Yellow Urine Clarity Clear Urine pH 6.0 Ur Specific Bosworth 1.021 Urine Protein Negative Urine Glucose (UA) Negative Urine Ketones Trace H Urine Occult Blood Negative Urine Nitrate Negative Urine Bilirubin Negative Urine Urobilinogen 2.0 H Ur Leukocyte Esterase Negative Urine RBC Less than 1 Urine WBC Less than 1 Ur Squamous Epith Cells <1 Urine Mucus Few H Micro UA Comment Cath-culture not ind Urine Culture Comments Cath-cult not ind - Imaging Impressions Abdomen/Pelvis CT 12/29/17 17:43 CONCLUSION: 1. Bowel gas pattern typical of diffuse ileus. No obstruction seen. No acute inflammatory changes. 2. Atherosclerotic abdominal aorta and branch vessels. 3. Small bubble of gas in the urinary bladder, nonspecific but potentially related to recent instrumentation. No perceptible wall thickening. Assessment and Plan - Plan 1. Ileus CT significant for diffuse ileus Patient denies any nausea/vomiting but has previous abdominal pain CLEAR LIQUID DIET Monitor AM LABS 2. Dry gangrene of left great toe Continue outpatient management with podiatry 3. Bilateral shoulder/buttock pain Continue p.o. Dilaudid as prescribed 4. Hypertension/hyperlipidemia Continue home medications on amlodipine and Lipitor and metoprolol 5. History of CVA with left-sided weakness/paralysis Physical therapy consulted On Keppra 500 mg twice daily Chronic dementia History of peripheral vascular occlusive disease and peripheral arterial disease Seizure disorder continue on Keppra Will attempt clear liquid diet FEN N.p.o. Electrolytes: As needed NS at 70 cc/hour Heparin AM LABS Code Status: FULL CODE Discussed Condition With: RN AND PT AND DAUGHTER AND CM Discharge Planning: PENDING IMPROVEMENT
[2017-12-30] MEDS: levETIRAcetam 250 MG Tablet PO SCH ×2 (13:07→20:33)
[2017-12-30] MEDS: Senna/Docusate Sodium 8.6/50 MG Tablet PO SCH (20:33)
[2017-12-31] MEDS: Sod Chloride 0.9% Inj 1,000 ML IV.CONT SCH (05:32)
[2017-12-31 05:40] LABS: Eos # (Auto) 0.3 th/mm3 (0.0-0.4); Eos % (Auto) 5.6 % (0.0-4.0); Hematocrit 33.2 % (35.0-46.0); Hemoglobin 11.2 gm/dL (11.6-15.3); Lymph # (Auto) 1.2 th/mm3 (1.0-4.8); Lymph % (Auto) 24.8 % (9.0-44.0); Mean Corpuscular HGB Conc 33.8 % (32.0-36.0); Mean Corpuscular Hemoglobin 33.1 pg (27.0-34.0); Mean Corpuscular Volume 97.8 fL (80.0-100.0); Mean Platelet Volume 7.8 fL (7.0-11.0); Mono # (Auto) 0.3 th/mm3 (0.0-0.9); Mono % (Auto) 7.1 % (0.0-8.0); Neut # (Auto) 2.9 th/mm3 (1.8-7.7); Neut % (Auto) 61.5 % (16.0-70.0); Platelet Count 147 th/mm3 (150-450); Red Blood Count 3.39 mil/mm3 (4.00-5.30); Red Cell Distribution Width 14.6 % (11.6-17.2); White Blood Count 4.7 th/mm3 (4.0-11.0)
[2017-12-31 06:19] LABS: Alanine Aminotransferase 46 U/L (10-53); Albumin 2.4 g/dL (3.4-5.0); Alkaline Phosphatase 71 U/L (45-117); Anion Gap 8 meq/L (5-15); Aspartate Aminotransferase 42 U/L (15-37); Blood Urea Nitrogen 16 mg/dL (7-18); Calcium 8.1 mg/dL (8.5-10.1); Carbon Dioxide 25.3 meq/L (21.0-32.0); Chloride 109 meq/L (98-107); Free T4 (Free Thyroxine) 1.07 ng/dL (0.76-1.46); Glomerular Filtration Rate Greater Than 89 mL/min (>89); Glucose,Random 80 mg/dL (74-106); Magnesium 2.2 mg/dL (1.5-2.5); Phosphorus 3.5 mg/dL (2.5-4.9); Potassium 3.9 meq/L (3.5-5.1); Sodium 142 meq/L (136-145); Total Protein 5.7 g/dL (6.4-8.2)
--- NOTE | 2017-12-31 09:59 | P.PNIM ---
Subjective Interval history: 87-year-old female with a past medical history significant for previous CVA with residual left-sided paralysis, dementia, history of breast cancer, history of colon cancer, hypertension, hyperlipidemia and left foot dry gangrene resents the emergency department for evaluation of urinary retention and bloating. Per the patient's daughter she last voided around 7 AM yesterday. She was brought to the emergency department for further evaluation as she had significant abdominal pain. The patient voided on her own in the emergency department. CT of the abdomen/pelvis done significant for diffuse ileus. Patient's last bowel movement was this morning. She denies any chest pain or shortness of breath. Endorses left shoulder pain from lying on her shoulder. Denies abdominal pain. Previous bloating and tenderness, now resolved. No fevers/chills. Left sided weakness which is residual. 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 Physical Exam Vital signs: Vital Signs 12/30/17 11:49 12/30/17 16:00 12/30/17 20:18 Temperature 97.9 F 98.1 F Pulse Rate 59 L 57 L Respiratory Rate 16 16 21 Blood Pressure 130/58 L 135/63 Pulse Oximetry 98 95 12/31/17 00:08 12/31/17 01:27 12/31/17 03:39 Temperature 98 F 98 F Pulse Rate 59 L 69 Respiratory Rate 17 16 16 Blood Pressure 127/60 121/58 L Pulse Oximetry 97 97 12/31/17 08:00 Temperature 98.2 F Pulse Rate 53 L Respiratory Rate 20 Blood Pressure 146/75 H Pulse Oximetry Intake & Output 12/30/17 12/31/17 12/31/17 18:59 06:59 18:59 Intake Total 1000 / 1000 1740 / 1740 Balance 1000 / 1000 1740 / 1740 Intake: IV 1000 / 1000 1500 / 1500 NS Inj 1,000 ML @ 70 mls/hr IV. 1000 / 1000 1000 / 1000 CONT .[id number] KAYLI Rx#:[id number] Oral 240 / 240 Other: # Voids 5 # Urine Diapers 4 Date of Last Bowel Movement 12/30/17 Narrative: Awake and alert talkative and cooperative Gen.: No acute distress Head: Normocephalic. Atraumatic. EENT: Pupils equal round and reactive to light. Nose without drainage. Airway intact. Throat without injection. Cardiovascular: Regular rate and rhythm. No murmurs, rubs or gallops. Respiratory: Lungs clear to auscultation bilaterally. No wheezes or rhonchi. Abdomen: Soft, diffusely tender to palpation, nondistended. No peritoneal signs. Musculoskeletal: No gross deformities. No edema. Skin: No obvious rashes or erythema. Left great toe is dressed Neuro: Sensory and motor grossly intact. Cranial nerves II through XII grossly intact. Left hemiparesis - Urinary Catheter Management Straight Cath placed during this visit: yes, but has since been removed by the nurse Reason for continuing: Not indwelling catheter Insertion date: 12/29/17 Insertion time: 18:15 Removal date: 12/29/17 Removal time: 18:15 Results - Labs CBC & Chem 7: 12/31/17 05:05 12/31/17 05:05 Laboratory Results - last 24 hr 12/31/17 12/31/17 05:05 05:05 WBC 4.7 RBC 3.39 L Hgb 11.2 L Hct 33.2 L MCV 97.8 MCH 33.1 MCHC 33.8 RDW 14.6 Plt Count 147 L MPV 7.8 Neut % (Auto) 61.5 Lymph % (Auto) 24.8 Mchenry % (Auto) 7.1 Eos % (Auto) 5.6 H Baso % (Auto) 1.0 Neut # (Auto) 2.9 Lymph # (Auto) 1.2 Mchenry # (Auto) 0.3 Eos # (Auto) 0.3 Baso # (Auto) 0.0 WBC Differential . Differential Comment Auto diff final Sodium 142 Potassium 3.9 Chloride 109 H Carbon Dioxide 25.3 Anion Gap 8 BUN 16 Creatinine 0.58 Estimated GFR Greater than 89 Random Glucose 80 Calcium 8.1 L Phosphorus 3.5 Magnesium 2.2 Total Bilirubin 0.6 AST 42 H ALT 46 Alkaline Phosphatase 71 Total Protein 5.7 L D Albumin 2.4 L TSH 1.990 Free T4 1.07 Assessment and Plan - Plan 1. Ileus CT significant for diffuse ileus Patient denies any nausea/vomiting but has previous abdominal pain CLEAR LIQUID DIET Monitor AM LABS 2. Dry gangrene of left great toe Continue outpatient management with podiatry 3. Bilateral shoulder/buttock pain Continue p.o. Dilaudid as prescribed 4. Hypertension/hyperlipidemia Continue home medications on amlodipine and Lipitor and metoprolol 5. History of CVA with left-sided weakness/paralysis Physical therapy consulted On Keppra 500 mg twice daily Chronic dementia History of peripheral vascular occlusive disease and peripheral arterial disease Seizure disorder continue on Keppra Will attempt clear liquid diet FEN N.p.o. Electrolytes: As needed NS at 70 cc/hour Heparin TOLERATING A DIET DC TO HOME TODAY Code Status: FULL CODE Discussed Condition With: RN AND PT Discharge Planning: PENDING IMPROVEMENT
--- NOTE | 2017-12-31 10:07 | P.DS ---
Date of admission: 12/30/17 06:16 Primary care physician: Lucinda Randhawa MD Attending physician on discharge: Jayce Castillo Anticipated date of discharge: 12/31/17 Brief History from admission: 87-year-old female with a past medical history significant for previous CVA with residual left-sided paralysis, dementia, history of breast cancer, history of colon cancer, hypertension, hyperlipidemia and left foot dry gangrene resents the emergency department for evaluation of urinary retention and bloating. Per the patient's daughter she last voided around 7 AM yesterday. She was brought to the emergency department for further evaluation as she had significant abdominal pain. The patient voided on her own in the emergency department. CT of the abdomen/pelvis done significant for diffuse ileus. Patient's last bowel movement was this morning. She denies any chest pain or shortness of breath. Endorses left shoulder pain from lying on her shoulder. Denies abdominal pain. Previous bloating and tenderness, now resolved. No fevers/chills. Left sided weakness which is residual. DS: Diagnosis - Discharge Diagnosis (1) Ileus Status: Acute (2) Abdominal distension Status: Acute DS: Summary Hospital Course: 87-year-old female with a past medical history significant for previous CVA with residual left-sided paralysis, dementia, history of breast cancer, history of colon cancer, hypertension, hyperlipidemia and left foot dry gangrene resents the emergency department for evaluation of urinary retention and bloating. Per the patient's daughter she last voided around 7 AM yesterday. She was brought to the emergency department for further evaluation as she had significant abdominal pain. The patient voided on her own in the emergency department. CT of the abdomen/pelvis done significant for diffuse ileus. Patient's last bowel movement was this morning. She denies any chest pain or shortness of breath. Endorses left shoulder pain from lying on her shoulder. Denies abdominal pain. Previous bloating and tenderness, now resolved. No fevers/chills. Left sided weakness which is residual. 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 - Time Spent with Patient Total time spent providing and/or coordinating discharge services: Greater than 30 minutes - Quality: VTE Deep Vein Thrombosis/Pulmonary Embolism Present on Admission: No Exam Vital signs: Vital Signs 12/30/17 11:49 12/30/17 16:00 12/30/17 20:18 Temperature 97.9 F 98.1 F Pulse Rate 59 L 57 L Respiratory Rate 16 16 21 Blood Pressure 130/58 L 135/63 Pulse Oximetry 98 95 12/31/17 00:08 12/31/17 01:27 12/31/17 03:39 Temperature 98 F 98 F Pulse Rate 59 L 69 Respiratory Rate 17 16 16 Blood Pressure 127/60 121/58 L Pulse Oximetry 97 97 12/31/17 08:00 Temperature 98.2 F Pulse Rate 53 L Respiratory Rate 20 Blood Pressure 146/75 H Pulse Oximetry Intake & Output 12/30/17 12/31/17 12/31/17 18:59 06:59 18:59 Intake Total 1000 / 1000 1740 / 1740 Balance 1000 / 1000 1740 / 1740 Intake: IV 1000 / 1000 1500 / 1500 NS Inj 1,000 ML @ 70 mls/hr IV. 1000 / 1000 1000 / 1000 CONT .[id number] KAYLI Rx#:[id number] Oral 240 / 240 Other: # Voids 5 # Urine Diapers 4 Date of Last Bowel Movement 12/30/17 Narrative: Awake and alert talkative and cooperative Gen.: No acute distress Head: Normocephalic. Atraumatic. EENT: Pupils equal round and reactive to light. Nose without drainage. Airway intact. Throat without injection. Cardiovascular: Regular rate and rhythm. No murmurs, rubs or gallops. Respiratory: Lungs clear to auscultation bilaterally. No wheezes or rhonchi. Abdomen: Soft, diffusely tender to palpation, nondistended. No peritoneal signs. Musculoskeletal: No gross deformities. No edema. Skin: No obvious rashes or erythema. Left great toe is dressed Neuro: Sensory and motor grossly intact. Cranial nerves II through XII grossly intact. Left hemiparesis Results Procedures completed during hospitalization: NONE Labs on day of discharge: Labs from last 24 hours 12/31/17 12/31/17 12/31/17 05:05 05:05 03:05 WBC 4.7 RBC 3.39 L Hgb 11.2 L Hct 33.2 L MCV 97.8 MCH 33.1 MCHC 33.8 RDW 14.6 Plt Count 147 L MPV 7.8 Neut % (Auto) 61.5 Lymph % (Auto) 24.8 Gaines % (Auto) 7.1 Eos % (Auto) 5.6 H Baso % (Auto) 1.0 Neut # (Auto) 2.9 Lymph # (Auto) 1.2 Gaines # (Auto) 0.3 Eos # (Auto) 0.3 Baso # (Auto) 0.0 WBC Differential . Differential Comment Auto diff final Sodium 142 Potassium 3.9 Chloride 109 H Carbon Dioxide 25.3 Anion Gap 8 BUN 16 Creatinine 0.58 Estimated GFR Greater than 89 Random Glucose 80 Hemoglobin A1c Pending Calcium 8.1 L Phosphorus 3.5 Magnesium 2.2 Total Bilirubin 0.6 AST 42 H ALT 46 Alkaline Phosphatase 71 Total Protein 5.7 L D Albumin 2.4 L TSH 1.990 Free T4 1.07 - Impressions ITS Impressions Abdomen/Pelvis CT 12/29/17 17:43 CONCLUSION: 1. Bowel gas pattern typical of diffuse ileus. No obstruction seen. No acute inflammatory changes. 2. Atherosclerotic abdominal aorta and branch vessels. 3. Small bubble of gas in the urinary bladder, nonspecific but potentially related to recent instrumentation. No perceptible wall thickening. Discharge Plan - Discharge Disposition Patient Disposition: W/Home Health Service - Discharge Condition Condition: Stable - Discharge Order Discharge Orders: Discharge Order (Routine); Ordered 12/31/17 Ordered By: Jayce aCstillo - Discharge Details Anticipated Discharge Date: 12/31/17 Discharge Comment: DC TO HOME - Physicians Team Primary Care Provider: Lucinda Randhawa Attending Provider: Jayce Castillo
[2017-12-31] MEDS: amLODIPine 5 MG Tablet PO SCH (10:09)
[2017-12-31] MEDS: Senna/Docusate Sodium 8.6/50 MG Tablet PO SCH (10:09)
[2017-12-31] MEDS: levETIRAcetam 250 MG Tablet PO SCH (10:10)
--- NOTE | 2017-12-31 10:12 | P.DCO ---
- Diagnosis (1) CVA (cerebral vascular accident) (2) Chronic pain (3) Constipation (4) Hypertension - Physical Therapy Order: Evaluate and treat, Improve ambulation, Strength and gait training - Occupational Therapy Order: Evaluate and treat, Improve ADL, Gross motor coordination, Fine motor coordination - Speech Therapy Order: To improve: Speech and communication skills, Cognitive skills, Swallowing - Home Health Nursing Order: Signs/symptoms of disease process, Medication education-adverse effect, Wound care and dressing changes, Nursing assessment with vital signs - Home Health Aide Order: To assist in: Bathing and personal care, dealer sales manager and meal prep - Sound Tester Order: To evaluate: Living conditions/environment, Support services Order: To provide: Long range planning, Community services - Certification I have seen patient Raiza Cortes on 12/31/17. My clinical findings support the need for the requested home health care services because: Limited mobility due to disease progression, Deconditioned with increased weakness, Medication compliance is questionable, Limited ability to care for self, Need for psychosocial assistance, Impaired cognition/judgement, High risk of falls I certify that my clinical findings support that this patient is homebound because: Impaired cognitive ability/safety, Unsteady gait/balance, Unsafe to leave home unassisted, Need for psychosocial assistance, Non-ambulatory: confined to bed or chair (1) CVA (cerebral vascular accident) Qualifiers: Laterality of affected vessel: left (2) Chronic pain Qualifiers: Chronic pain type: chronic pain syndrome Qualified Code(s): G89.4 - Chronic pain syndrome (3) Constipation Qualifiers: Constipation type: drug induced constipation Qualified Code(s): K59.03 - Drug induced constipation (4) Hypertension Qualifiers: Hypertension type: essential hypertension Qualified Code(s): I10 - Essential (primary) hypertension
[2017-12-31 11:45] VITALS: BP 144/66; PULSE 56; RESP 12; TEMP 97.8; O2SAT 95
[2017-12-31 16:40] LABS: Hemoglobin A1c 5.1 % (4.3-6.0)
== END 2017-12-31 13:19 | disposition home health service (06) ==
LOC: NEDA 17:02 → NEPC 17:02 → NEPGCP 12-30 01:24
PROVIDERS: ADMIT Hospitalist; ATTEND Hospitalist